=== PATIENT | male | born 1960 | race Caucasian/White ===

== ENCOUNTER 2020-02-12 13:28 | Outpatient (REF) | payer OTHER, SELFPAY | END 2020-02-12 13:29 | disposition home or self-care (01) | LOC: HO.LAB 13:28 | PROVIDERS: PCP Family Medicine; Visit Provider Internal Medicine | DX: Z20.828 Contact with and (suspected) exposure to other viral communicable diseases (principal) | CPT/HCPCS: C9803; U0003 ==

== ENCOUNTER 2020-03-06 11:01 | Emergency (ER) | payer OTHER, SELFPAY ==
[2020-03-06 11:33] VITALS: BP 141/88; PULSE 83; RESP 26; TEMP 36.9; O2SAT 96; BMI 32.3
--- NOTE | 2020-03-06 13:35 | XR_ITS ---
EXAMINATION: XR CHEST CLINICAL INFORMATION: SOB and wheezing COMPARISON: CT chest 01/30/2019 TECHNIQUE: Frontal view of the chest was obtained. FINDINGS: No significant abnormality is noted involving the heart, lungs, mediastinum, bony thorax or soft tissues. XR/XR chest 1V IMPRESSION: Unremarkable chest examination.
--- NOTE | 2020-03-06 13:39 | ED.ASTHMA ---
HPI - Asthma General Chief Complaint: Asthma Stated Complaint: asthma, med refill Time Seen by Provider: 03/06/20 13:35 Source: patient Mode of arrival: ambulatory Limitations: no limitations History of Present Illness HPI Narrative: 60 y/o male with history of asthma, KRISTY on CPAP, pulmonary nodules, HTN, schizophrenia, hx HCAP, hx hepatitis C s/p Roopa who presents with wheezing and SOB x1 week. He ran out of his nebulizer treatments and has been unable to get ahold of his PCP. He reports a dry cough and wheezing at rest. No fever, chills, sputum production, N/V/D, or sick contacts. No chest pain or diaphoresis. Symptoms are worse with coughing and walking. He has been using his rescue pump without relief. MD complaint: asthma attack and wheezing Onset (ago): week(s) (1) Severity: moderate Context: ran out of meds Associated symptoms: dry cough Asthma History: history of prior ED visit Related Data Current Asthma Therapy: inhaled bronchodilator Previous Rx's Medication Instructions Recorded albuterol sulfate 2.5 mg INHALATION Q4H PRN #75 ml 03/06/20 azithromycin [Zithromax Z-Dominic] See Rx Instructions .ROUTE 03/06/20 .COMPLEX #6 tab prednisone 10 mg PO PER PKG DIR #48 ea 03/06/20 Allergies Allergy/AdvReac Type Severity Reaction Status Date / Time haloperidol [From HALDOL] Allergy Severe SWELLING Unverified 11/07/19 15:35 TONGUE aspirin [ASPIRIN] Allergy Intermediate GI UPSET Unverified 11/07/19 15:35 benztropine [From COGENTIN] Allergy Unknown UNKNOWN Unverified 11/07/19 15:35 simvastatin [SIMVASTATIN] Allergy Unknown UNKNOWN Unverified 11/07/19 15:35 Review of Systems Review of Systems: Constitutional: No Fever, No Chills ENT/Mouth: No sore throat, No Rhinorrhea, No Swallowing Difficulty Cardiovascular: No Chest Pain, + SOB, No Orthopnea, No Edema Respiratory: + Cough, No Sputum, + Wheezing, + dyspnea Gastrointestinal: No Nausea, No Vomiting, No Diarrhea, No abdominal Pain Genitourinary: No Dysuria, No Urinary Frequency, No Hematuria Musculoskeletal: No joint pain, No Myalgias Skin: No Skin Lesions, No rash Neuro: No Weakness, No Numbness, No Dizziness, No Headache Psych: No Anxiety/Panic, No Depression Heme/Lymph: No Bruising, No Lymphadenopathy PMFSH Past Medical History Attestation statement: The following information was validated with the patient. Medical History (Updated 03/06/20 @ 13:55 by FANI Ford) Asthma Hepatitis C Hypertension KRISTY (obstructive sleep apnea) Pulmonary nodules Schizophrenia Social History Social History Advance Directives: No Advance Directives Information Provided: Yes Physical Exam Vital Signs: Vital Signs: Last Vital Signs Temp 98.4 F 03/06/20 11:33 Pulse 83 03/06/20 14:02 Resp 26 H 03/06/20 11:33 BP 141/88 H 03/06/20 11:33 Pulse Ox 96 03/06/20 11:33 Body Mass Index 32.3 Appearance: Alert. Oriented X3. No acute distress. Eyes: Pupils equal, round and reactive to light. ENT: Pharynx normal. Neck: Normal inspection. Neck supple. CVS: Normal heart rate and rhythm. Pulses normal. Respiratory: Mild respiratory distress with RR 22, inspiratory and expiratory wheezes throughout with LLL rhonchi. Abdomen: Soft and nontender. +BS x4 Skin: Skin warm and dry. Normal skin color. Normal skin turgor. No rashes. Extremities: No lower extremity edema. Negative Nirali's sign Neuro: Oriented X 3. No motor deficit. No sensory deficit. Course Course Course Narrative: 60 y/o male presenting with asthma exacerbation in the setting of running out of nebulizer treatments at home. RR initially 26. He was in the waiting room 2+ hours and he reports he feels slightly improved after resting and RR improved to 22 when seen. Diffusely wheezy but not in any concerning respiratory distress, speaking in full sentences. - will give hour long nebulizer treatment & dose of oral prednisone now - CXR ordered to assess for pneumonia Reevaluation(s) Reevaluation #1: 14:45 - significant improvement in aeration and wheezing s/p nebulizer treatment. CXR negative. Patient is stable for discharge with treatment for acute asthma exacerbation. He has been counseled and will f/u with his doctor. Discharge Plan Discharge Clinical Impression: Asthma with acute exacerbation Qualifiers: Asthma severity: moderate Asthma persistence: persistent Qualified Code(s): J45.41 - Moderate persistent asthma with (acute) exacerbation Patient Disposition: Home, Self-Care Instructions: Asthma (ED), Wheezing (ED) Additional Instructions: Your chest x-ray was normal. Start taking your prednisone taper tomorrow - you were given your 1st dose while you were in the ER. Use your nebulizer treatments as needed. Follow up with your doctor PILO for further management of your asthma. Prescriptions: New albuterol sulfate 2.5 mg /3 mL (0.083 %) solution for nebulization 2.5 mg inhalation Q4H PRN (Reason: shortness of breath or wheezing) Qty: 75 RF: 0 prednisone 10 mg tablets,dose pack 10 mg PO PER PKG DIR Qty: 48 RF: 0 azithromycin [Zithromax Z-Dominic] 250 mg tablet See Rx Instructions .ROUTE .COMPLEX Qty: 6 RF: 0
[2020-03-06] MEDS: Albuterol Sulfate (0.083%) 2.5 MG/3 ML VIAL.NEB 10 MG INHALE (13:56)
[2020-03-06 14:02] VITALS: PULSE 83; O2SAT 98
[2020-03-06] MEDS: predniSONE 10 MG TABLET 50 MG PO (14:35)
== END 2020-03-06 14:50 | disposition home or self-care (01) ==
PROVIDERS: Emergency Provider Emergency Medicine; PCP Family Medicine
DX: J45.41 Moderate persistent asthma with (acute) exacerbation (principal); I10 Essential (primary) hypertension; R91.1 Solitary pulmonary nodule; Z79.899 Other long term (current) drug therapy
CPT/HCPCS: 71045; 94640; 99283; 99284

== ENCOUNTER 2020-03-13 09:44 | Outpatient (REF) | payer OTHER, SELFPAY | END 2020-03-13 09:45 | disposition home or self-care (01) | LOC: HO.LAB 09:44 | PROVIDERS: Visit Provider Internal Medicine | DX: Z20.822 Contact with and (suspected) exposure to COVID-19 (principal) | CPT/HCPCS: 36415; C9803; U0003 ==

== ENCOUNTER 2020-09-21 19:28 | Emergency (ER) | payer OTHER, SELFPAY ==
[2020-09-21 20:39] VITALS: BP 96/76; PULSE 72; RESP 18; TEMP 36.7; O2SAT 98; BMI 37.9
[2020-09-21 20:59] LABS: COVID-19 Test Negative (Negative)
== END 2020-09-22 00:26 | disposition left against medical advice (07) ==
PROVIDERS: Emergency Provider Emergency Medicine; PCP Family Medicine
DX: M79.10 Myalgia, unspecified site (principal)
CPT/HCPCS: 36415; 87635; 99281; 99282

== ENCOUNTER 2020-09-23 10:03 | Outpatient (REF) | payer OTHER, SELFPAY ==
--- NOTE | ~2020-09-23 | XR_ITS ---
EXAMINATION: XR CERVICAL SPINE CLINICAL INFORMATION: Neck pain COMPARISON: None TECHNIQUE: 5 views of the cervical spine were obtained. FINDINGS: There is mild curvature of the mid cervical spine to the right. Bone alignment is otherwise normal. No fracture or dislocation is seen. There is degenerative spondylosis and disc space narrowing at C5-C6. There is right-sided neuroforaminal narrowing from bony osteophyte at C3-C4 and C4-C5 and C5-C6. Left-sided neural foramen are patent. Prevertebral soft tissues are normal. XR/XR cervical spine 4V IMPRESSION: Degenerative change at C5-C6 and mild right-sided neuroforaminal narrowing from C3-C4 to C5-C6 from bony osteophyte.
--- NOTE | ~2020-09-23 | XR_ITS ---
EXAMINATION: XR KNEE, LEFT CLINICAL INFORMATION: Pain COMPARISON: None TECHNIQUE: Four views of the left knee. FINDINGS: Bone alignment is normal. No fracture or dislocation is seen. The femoral tibial joints are normal. There is arthritis at the patellofemoral joint. There is no joint effusion. XR/XR knee LT 4V IMPRESSION: Arthritis at the patellofemoral joint.
== END 2020-09-23 10:04 | disposition home or self-care (01) ==
LOC: HO.XRAY 10:03
PROVIDERS: PCP Family Medicine; Visit Provider Emergency Medicine
DX: M25.562 Pain in left knee (principal); M54.2 Cervicalgia
CPT/HCPCS: 72050; 73564

== ENCOUNTER 2020-11-05 14:05 | Outpatient (REF) | payer OTHER, SELFPAY ==
--- NOTE | ~2020-11-05 | XR_ITS ---
EXAMINATION: XR LUMBOSACRAL SPINE CLINICAL INFORMATION: Pain. COMPARISON: Lumbar spine radiographs dated 08/24/2016. TECHNIQUE: 3 views of the lumbosacral spine. FINDINGS: Normal vertebral body alignment. The lumbar lordosis is maintained. No acute fracture or subluxation. No loss of vertebral body height. Minimal multilevel loss of intervertebral disc height with tiny anterior endplate osteophytes, slightly progressed. Bilateral facet arthropathy at L5-S1. No lytic or blastic osseous lesion. Phleboliths within the pelvis. XR/XR lumbar spine 2-3V IMPRESSION: Mild multilevel degenerative disc disease with bilateral facet arthropathy at L5-S1, slightly progressed.
== END 2020-11-05 14:06 | disposition home or self-care (01) ==
LOC: HO.XRAY 14:05
PROVIDERS: PCP Family Medicine; Visit Provider Family Medicine
DX: M54.2 Cervicalgia (principal)
CPT/HCPCS: 72100

== ENCOUNTER → 2020-12-01 09:31 | Outpatient (BNVA) | payer OTHER, SELFPAY | PROVIDERS: PCP Family Medicine; Visit Provider Nurse Practitioner Family | DX: M47.816 Spondylosis without myelopathy or radiculopathy, lumbar region (principal); M54.2 Cervicalgia; M79.18 Myalgia, other site; M53.3 Sacrococcygeal disorders, not elsewhere classified | CPT/HCPCS: 99202 ==

== ENCOUNTER 2021-05-20 09:08 | Outpatient (REF) | payer OTHER, SELFPAY ==
--- NOTE | ~2021-05-20 | XR_ITS ---
EXAMINATION: XR HAND SERIES, BILATERAL CLINICAL INFORMATION: Bilateral hand pain COMPARISON: None TECHNIQUE: 3 views of each hand. FINDINGS: RIGHT HAND: Wrist: Normal. Metacarpophalangeal joints: First metacarpophalangeal joint: There is nonuniform joint space narrowing with marginal osteophytes and subchondral cysts indicative of [id number] osteoarthritis. Mild osteoarthritis of the 2nd and 3rd metacarpophalangeal joints manifested by marginal osteophytes without joint space narrowing. Interphalangeal joints: Normal. Surrounding soft tissues: Normal. LEFT HAND: Wrist: Normal. Metacarpophalangeal joints: Mild osteoarthritis of the 1st, 2nd and 3rd metacarpophalangeal joints manifested by marginal osteophytes and subchondral cystic change without joint space narrowing. Small ossification in the 1st MTP joint may reflect a loose body or dystrophic calcification of the capsule. Interphalangeal joints: There is mild osteoarthritis of the IP joint of the thumb manifested by marginal osteophytes with minimal subchondral cystic change. Surrounding soft tissues: Normal XR/XR hand LT min 3V IMPRESSION: RIGHT HAND: Osteoarthritis. LEFT HAND: Osteoarthritis.
--- NOTE | ~2021-05-20 | XR_ITS ---
EXAMINATION: XR HAND SERIES, BILATERAL CLINICAL INFORMATION: Bilateral hand pain COMPARISON: None TECHNIQUE: 3 views of each hand. FINDINGS: RIGHT HAND: Wrist: Normal. Metacarpophalangeal joints: First metacarpophalangeal joint: There is nonuniform joint space narrowing with marginal osteophytes and subchondral cysts indicative of [id number] osteoarthritis. Mild osteoarthritis of the 2nd and 3rd metacarpophalangeal joints manifested by marginal osteophytes without joint space narrowing. Interphalangeal joints: Normal. Surrounding soft tissues: Normal. LEFT HAND: Wrist: Normal. Metacarpophalangeal joints: Mild osteoarthritis of the 1st, 2nd and 3rd metacarpophalangeal joints manifested by marginal osteophytes and subchondral cystic change without joint space narrowing. Small ossification in the 1st MTP joint may reflect a loose body or dystrophic calcification of the capsule. Interphalangeal joints: There is mild osteoarthritis of the IP joint of the thumb manifested by marginal osteophytes with minimal subchondral cystic change. Surrounding soft tissues: Normal XR/XR hand RT min 3V IMPRESSION: RIGHT HAND: Osteoarthritis. LEFT HAND: Osteoarthritis.
== END 2021-05-20 09:09 | disposition home or self-care (01) ==
LOC: HO.LAB 09:08
PROVIDERS: PCP Family Medicine; Visit Provider Family Medicine
DX: M79.641 Pain in right hand (principal); M79.642 Pain in left hand; R35.0 Frequency of micturition
CPT/HCPCS: 73130

== ENCOUNTER 2021-06-16 15:08 | Outpatient (RCR) | payer OTHER, SELFPAY | END 2021-06-23 15:00 | disposition home or self-care (01) | LOC: HO.PT 15:08 | PROVIDERS: PCP Family Medicine; Visit Provider Family Medicine | DX: M54.2 Cervicalgia (principal) | CPT/HCPCS: 97110; 97162 ==

== ENCOUNTER 2021-11-10 13:32 | Outpatient (REF) | payer OTHER, SELFPAY ==
--- NOTE | ~2021-11-10 | XR_ITS ---
EXAMINATION: XR CHEST CLINICAL INFORMATION: Cough for 7 months. COMPARISON: March 06, 2020. TECHNIQUE: 2 views of the chest were obtained. FINDINGS: No significant abnormality is noted involving the heart, lungs, mediastinum, bony thorax or soft tissues. XR/XR chest 2V IMPRESSION: Unremarkable examination.
== END 2021-11-10 13:33 | disposition home or self-care (01) ==
LOC: HO.XRAY 13:32
PROVIDERS: PCP Family Medicine; Visit Provider Family Medicine
DX: R05.9 Cough, unspecified (principal)
CPT/HCPCS: 71046

== ENCOUNTER → 2022-04-28 13:28 | Outpatient (BNVA) | payer OTHER, SELFPAY | PROVIDERS: PCP Family Medicine; Referring Provider Family Medicine; Visit Provider Physician Assistant | DX: Z12.11 Encounter for screening for malignant neoplasm of colon (principal); Z79.52 Long term (current) use of systemic steroids | CPT/HCPCS: 99202 ==

== ENCOUNTER 2022-05-16 08:48 | Outpatient (REF) | payer OTHER, SELFPAY ==
--- NOTE | ~2022-05-16 | XR_ITS ---
EXAMINATION: XR FOOT, RIGHT CLINICAL INFORMATION: Pain. COMPARISON: None available. TECHNIQUE: AP, lateral, and oblique views of the right foot. FINDINGS: There is a loss of talonavicular joint space with dorsal spurring. No visible acute fracture or dislocation seen. A small retrocalcaneal enthesophyte is seen. The soft tissues are normal. XR/XR foot RT min 3V IMPRESSION: Small retrocalcaneal and dorsal talonavicular spurring. No visible acute fracture, dislocation or lytic process seen.
== END 2022-05-16 08:49 | disposition home or self-care (01) ==
LOC: HO.XRAY 08:48
PROVIDERS: PCP Family Medicine; Visit Provider Family Medicine
DX: M79.671 Pain in right foot (principal)
CPT/HCPCS: 73630

== ENCOUNTER 2022-06-16 15:30 | Outpatient (REF) | payer OTHER, SELFPAY ==
--- NOTE | ~2022-06-16 | US_ITS ---
EXAMINATION: US VENOUS ULTRASOUND WITH DOPPLER LOWER EXTREMITY, RIGHT CLINICAL INFORMATION: Acute pain COMPARISON: Bilateral venous Doppler ultrasound exam 05/17/2016 TECHNIQUE: Ultrasound of the deep veins is performed from the hip to the calf with compression sonography and color and pulse Doppler assessment. Spectral analysis with color-flow imaging is performed. FINDINGS: There is normal venous compression and respiratory variation and augmented flow. The visualized common femoral vein, superficial femoral vein, profunda femoral vein, popliteal vein, and the trifurcation region shows no evidence of deep venous thrombosis. No evidence of popliteal cysts. Morphologically normal-appearing lymph node with fatty hilum and short axis diameter 0.6 cm in the right proximal thigh. If the patient's symptoms persist, followup ultrasound in 5 days 7 days might be of value to exclude proximal propagation from a non-visualized calf vein. US/US venous duplex LE RT IMPRESSION: No DVT demonstrated in the right lower extremity.
== END 2022-06-16 15:31 | disposition home or self-care (01) ==
LOC: HO.US 15:30
PROVIDERS: Visit Provider Emergency Medicine
DX: M79.604 Pain in right leg (principal)
CPT/HCPCS: 93971

== ENCOUNTER 2022-08-08 13:07 | Outpatient (REF) | payer OTHER, SELFPAY ==
--- NOTE | ~2022-08-08 | MR_ITS ---
EXAMINATION: MR LUMBAR SPINE WITHOUT CONTRAST CLINICAL INFORMATION: Chronic right-sided low back pain with sciatica. COMPARISON: X-ray lumbar spine dated 11/05/2020. TECHNIQUE: Multiplanar, multisequence imaging was obtained. FINDINGS: VERTEBRAL BODIES AND PARASPINAL STRUCTURES: The marrow signal is within normal limits. No subluxation is seen. There are no compression fractures. Disc heights are maintained. No marrow or soft tissue edema identified the paraspinal soft tissues appear normal. The imaged bony pelvis is unremarkable. On the nondiagnostic localizer acquisition, there is perceived bladder wall thickening, otherwise incompletely assessed. CONUS MEDULLARIS AND CAUDA EQUINE: The distal cord, conus tip, and cauda equina nerve roots are normal. Epidural lipomatosis in the lumbar spinal canal results in varying degrees of thecal sac distortion. SPINAL LEVELS: L1-L2: Mild anterior endplate spurring. No focal disc protrusion, central canal stenosis, or foraminal narrowing. L2-L3: Very mild disc bulge and mild facet arthropathy with mild dorsal epidural fat prominence resulting in [id number] thecal sac distortion. No central canal stenosis. Very mild foraminal narrowing due to bulging disc on the right side. L3-L4: No facet arthrosis. Patent central canal with epidural lipomatosis resulting in moderate thecal sac distortion. Mild right foraminal narrowing with a shallow right foraminal disc protrusion contacting but not distorting the exiting right L3 nerve root. L4-L5: Very mild disc bulge with facet arthropathy. No central canal stenosis. Significant epidural lipomatosis resulting in severe thecal sac compression and effacement of CSF in the thecal sac. Right posterolateral annular fissure and disc bulge and osseous spurring resulting in moderate right foraminal encroachment. Moderate left foraminal narrowing as well. L5-S1: Very mild disc bulge and thecal sac distortion as a result of epidural lipomatosis. Small left subarticular zone annular fissure. No central canal stenosis. Mild facet arthropathy contacting the exiting left L5 nerve root with moderate left foraminal encroachment. Mild right foraminal narrowing. MR/MR lumbar spine wo con IMPRESSION: 1. Epidural lipomatosis in the lumbar spinal canal resulting in moderate thecal sac distortion at the L3-L4 level and severe thecal sac compression at the L4-L5 level. No central canal stenosis. 2. Shallow right foraminal disc protrusion at the L3-L4 level contacting the right L3 nerve root. 3. Moderate bilateral foraminal narrowing at the L4-L5 level due to bulging disc and osseous spurring. Focal right posterolateral annular tear/tear. 4. Facet arthropathy at the L5-S1 level contacting the exiting left L5 nerve root with moderate left foraminal encroachment. 5. Partially imaged superior bladder wall thickening of indeterminate etiology; query for any history of prostatic enlargement, not included in the field of view of imaging.
== END 2022-08-08 13:08 | disposition home or self-care (01) ==
LOC: HO.MRI 13:07
PROVIDERS: PCP Family Medicine; Visit Provider Emergency Medicine
DX: M54.41 Lumbago with sciatica, right side (principal)
CPT/HCPCS: 72148

== ENCOUNTER 2022-11-02 08:24 | Day surgery (SDC) | payer OTHER, SELFPAY ==
--- NOTE | 2022-11-01 10:29 | P.CONAN_ITS ---
Documented by User: Devorah Lyman NP 11/01/22 10:30 HPI - Anesthesia Eval Consult details Narrative: 62yo M for Colonoscopy PMFSH Active Problems Active Problems: All Active Problems (Updated 04/28/22 @ 13:53 by Pina Mahajan PA-C) Encounter for screening colonoscopy (Acute) Sacroiliac joint pain (Acute) Myofascial pain (Acute) Cervicalgia (Acute) Spondylosis of lumbar spine (Acute) Pulmonary nodules (Acute) KRISTY (obstructive sleep apnea) (Acute) Hypertension (Acute) Schizophrenia (Acute) Past Medical History Medical History Hepatitis C Pulmonary nodules KRISTY (obstructive sleep apnea) Hypertension Schizophrenia Asthma Surgical History Surgical History Hx of colonoscopy Social History Social History Patient Tobacco Use Status: Former Tobacco user Are you DNR?: No Advance Directives: No Advance Directives Information Provided: Yes Nutrition Risks: No Nutritional Risk Meds Allergies Allergy/AdvReac Type Severity Reaction Status Date / Time haloperidol [From HALDOL] Allergy Severe SWELLING Verified 11/02/22 10:05 TONGUE aspirin [ASPIRIN] Allergy Intermediate GI UPSET Verified 11/02/22 10:05 benztropine [From COGENTIN] Allergy Unknown UNKNOWN Verified 11/02/22 10:05 simvastatin [SIMVASTATIN] Allergy Unknown UNKNOWN Verified 11/02/22 10:05 Home Medications Medication Instructions Recorded Confirmed Last Taken Type acetaminophen 500 mg tablet 500 mg PO Q6H PRN 12/01/20 04/28/22 Unknown History (Tylenol Extra Strength) metoprolol tartrate 50 mg tablet 50 mg PO BID 12/01/20 04/28/22 Unknown History Exam Exam Date and Time: November 01, 2022 102 Assessment and Plan Assessment Anesthesia Assessment: Chart Reviewed Documented by User: Marichuy Flores MD 11/02/22 10:42 [facility] Active Problems Active Problems: All Active Problems (Updated 11/02/22 @ 10:12 by Mraichuy Flores MD) Encounter for screening colonoscopy (Acute) Sacroiliac joint pain (Acute) Myofascial pain (Acute) Cervicalgia (Acute) Spondylosis of lumbar spine (Acute) Pulmonary nodules (Acute) KRISTY (obstructive sleep apnea) (Acute). Not using COAP machine Hypertension (Acute) Schizophrenia (Acute) Hep C Asthma Past Medical History Medical History Hepatitis C Pulmonary nodules KRISTY (obstructive sleep apnea) Hypertension Schizophrenia Asthma Family History Family history of problems with anesthesia: No Surgical History Surgical History Hx of colonoscopy History of Problems with Anesthesia: No Social History Social History Patient Tobacco Use Status: Former Tobacco user Are you DNR?: No Advance Directives: No Advance Directives Information Provided: Yes Nutrition Risks: No Nutritional Risk Meds Allergies Allergy/AdvReac Type Severity Reaction Status Date / Time haloperidol [From HALDOL] Allergy Severe SWELLING Verified 11/02/22 10:05 TONGUE aspirin [ASPIRIN] Allergy Intermediate GI UPSET Verified 11/02/22 10:05 benztropine [From COGENTIN] Allergy Unknown UNKNOWN Verified 11/02/22 10:05 simvastatin [SIMVASTATIN] Allergy Unknown UNKNOWN Verified 11/02/22 10:05 Home Medications Medication Instructions Recorded Confirmed Last Taken Type acetaminophen 500 mg tablet 500 mg PO Q6H PRN 12/01/20 04/28/22 Unknown History (Tylenol Extra Strength) metoprolol tartrate 50 mg tablet 50 mg PO BID 12/01/20 04/28/22 Unknown History Exam Height,Weight and Vital Signs: Height 5 ft 6 in Weight 119.295 kg Vital Signs Temp Pulse Resp BP Pulse Ox O2 Del Method 11/02/22 09:56 97.9 F 60 18 140/86 H 99 Room Air Pertinent Lab Results Pertinent Lab Results: Lab Results 11/02/22 Range/Units 09:54 POC Glucose 96 (60-115) mg/dL Airway Mallampati Class: II TM Dist: >3cm Neck ROM: Limited (pain) Denture: Upper Partial: Lower Loose/Missing/Broken Teeth: Yes (Denies broken or loose teeth ) Heart: RRR Lungs: CTAB Assessment and Plan Assessment Anesthesia Assessment: Anesthesia Plan Discussed Final Anesthetic Review Family History of Problems with Anesthesia: No History of Problems with Anesthesia: No NPO: Yes ASA Class: III Final Preanesthetic Review: No Changes in Pt Med Stat, Meds/Allgs Chart Reviewed, Consent Obtained/Reviewed and Anes Risks/Benef Reviewed Patient Risk: Intermediate Procedure Risk: Low Assessment/Block/Sedation in SS: Assess/Block/Sedation-SS Anesthetic Plan Anesthetic Plan: MAC: Disposition: Standard PACU
[2022-11-02 09:46] VITALS: BMI 42.4
--- NOTE | 2022-11-02 09:53 | P.HPSUR_ITS ---
Pre-Procedural Eval Section A Date of Service: 11/02/22 Section B Chief Complaint: screening Relevant Family History (Specify if Yes): No Relevant Social History: None Present Medications: see Short Stay Collaborative assessment Medical History: Significant History (Asthma Hepatitis C Hypertension KRISTY (obstructive sleep apnea) Pulmonary nodules Schizophrenia) History of Previous Operations: No relevant previous surgery Allergies: Allergies Allergy/AdvReac Type Severity Reaction Status Date / Time haloperidol [From HALDOL] Allergy Severe SWELLING Verified 04/28/22 13:31 TONGUE aspirin [ASPIRIN] Allergy Intermediate GI UPSET Verified 04/28/22 13:31 benztropine [From COGENTIN] Allergy Unknown UNKNOWN Verified 04/28/22 13:31 simvastatin [SIMVASTATIN] Allergy Unknown UNKNOWN Verified 04/28/22 13:31 Review of Systems Sugical H&P ROS: Negative: Constitution, Cardiovascular, Respiratory, Neurological, Psychiatric, Hem-Onc, Allergic/Immunologic, Gastrointestinal, Genitourinary, Musculoskeletal, Integumentary, Endocrine and Eyes/Ears/Nose/Thro at Exam Surgical H&P Exam: Normal: HEENT, Normal: Heart, Normal: Lungs, Normal: Extremities, Normal: Abdomen, Normal: Skin and Normal: Neurological Plan Diagnosis/Plan: Unchanged I have reviewed the history and physical and performed a pertinent physical examination on my patient. No changes have occurred unless specified. Time Spent With Patient Time: Total time managing care of this patient today ____ minutes.
[2022-11-02 09:56] VITALS: BP 140/86; PULSE 60; RESP 18; TEMP 36.6; O2SAT 99
[2022-11-02] MEDS: Lactated Ringers 1,000 ML 100 ML IVCONT (09:57)
[2022-11-02 10:01] LABS: Glucose, Whole Blood 96 mg/dL (60-115)
--- NOTE | 2022-11-02 10:22 | W.PM.OPN ---
Operative Note Operative Note Date of Service: 11/02/22 Narrative: Operative Information Procedure Description: Colonoscopy Indication: screening Anesthesia: MAC COLONOSCOPY Instrument: Olympus variable stiffness ADULT scope 190L Colonoscopy Monitoring: Vital signs and clinical assessment, continuous EKG monitoring, Pulse oximetry, Carbon Dioxide monitoring and blood pressure monitoring were done throughout the procedure. Colon withdrawal time was 12 minutes. Procedure: The patient was placed in the left lateral decubitis position and pre-procedure medications were administered. After a digital rectal examination of the ano-rectum, the video colonoscope was inserted into the rectum and advanced through the colon to the cecum/TI. The colonoscope was slowly withdrawn in a retrograde panoramic fashion and the colon mucosa was carefully examined including a retroflexed view of the rectum. Findings and interventions are described below. Procedure Difficulty: moderate Findings: Terminal Ileum-normal Cecum: 6-7 mm sessile polyp removed with cold snare, not retrieved Ascending Colon: normal Transverse Colon - 6-8 mm sessile polyp removed with cold snare, not retreived Descending Colon: 6-8 mm sessile polyp removed with cold snare Sigmoid Colon: 6-8 mm sessile polyp removed with cold snare Rectum: Retroflexion with medium sized internal hemorrhoids, grade I Anorectum - normal Colon preparation: [place] Bowel Preparation Scale Right colon; 1-2 Transverse colon: 2 Left colon; 1-2 (0 = Unprepared colon segment with mucosa not seen due to solid stool that cannot be cleared. 1 = Portion of mucosa of the colon segment seen, but other areas of the colon segment not well seen due to staining, residual stool and/or opaque liquid. 2 = Minor amount of residual staining, small fragments of stool and/or opaque liquid, but mucosa of colon segment seen well. 3 = Entire mucosa of colon segment seen well with no residual staining, small fragments of stool or opaque liquid) Impression and Post Procedure Diagnosis: polyps internal hemorrhoids Plan: High fiber diet leaflet Avoid straining at stool, epsom salts and sitz bath, anusol supps or cream Repeat Colonoscopy in 3-4 years due to polyps and fair prep or earlier if clinically indicated Above findings were reviewed with the patient and relevant handouts were provided if indicated.
[2022-11-02 10:58] VITALS: BP 131/92; PULSE 67; RESP 14; TEMP 36.4; O2SAT 96
[2022-11-02 11:13] VITALS: BP 146/91; PULSE 60; RESP 18; O2SAT 96
[2022-11-02 11:27] VITALS: BP 144/91; PULSE 61; RESP 18; TEMP 36.2; O2SAT 98
== END 2022-11-02 12:10 | disposition home or self-care (01) ==
PROVIDERS: PCP Family Medicine; Visit Provider Internal Medicine Gastroenterology
PROC: 0DJD8ZZ Inspection of Lower Intestinal Tract, Via Natural or Artificial Opening Endoscopic (ICD-10-PCS; CPT 45378; principal; 2022-11-02 11:10)
DX: Z12.11 Encounter for screening for malignant neoplasm of colon (principal); D12.4 Benign neoplasm of descending colon; K63.5 Polyp of colon; K64.0 First degree hemorrhoids; J45.909 Unspecified asthma, uncomplicated; I10 Essential (primary) hypertension; B19.20 Unspecified viral hepatitis C without hepatic coma; G47.33 Obstructive sleep apnea (adult) (pediatric); R91.8 Other nonspecific abnormal finding of lung field; F20.9 Schizophrenia, unspecified; Z79.899 Other long term (current) drug therapy; Z88.8 Allergy status to other drugs, medicaments and biological substances; Z87.891 Personal history of nicotine dependence
CPT/HCPCS: 45385; 82947; 88305

== ENCOUNTER → 2022-11-02 08:24 | Outpatient (BNV) | payer OTHER, SELFPAY | PROVIDERS: PCP Family Medicine; Visit Provider Internal Medicine Gastroenterology | DX: Z12.11 Encounter for screening for malignant neoplasm of colon (principal); D12.0 Benign neoplasm of cecum; D12.3 Benign neoplasm of transverse colon; D12.4 Benign neoplasm of descending colon; D12.5 Benign neoplasm of sigmoid colon; K64.0 First degree hemorrhoids | CPT/HCPCS: 45385 ==

== ENCOUNTER 2023-04-09 09:17 | Emergency (ER) | payer OTHER, SELFPAY ==
[2023-04-09 09:23] VITALS: BP 132/83; PULSE 84; RESP 19; TEMP 35.6; O2SAT 94; BMI 42.4
[2023-04-09] MEDS: Fluorescein Sodium STRIP 1 STRIP EYE-RIGHT (09:47)
[2023-04-09] MEDS: Tetracaine HCl/PF 0.5% Oph Sol 4 ML DROPS 1 DROP EYE-RIGHT (09:47)
--- NOTE | 2023-04-09 09:50 | ED.EYEPROB ---
HPI - Eye Problem General Chief complaint: Eye Problems Stated complaint: Eye irritation Time Seen by Provider: 04/09/23 09:24 Source: patient and family Mode of arrival: ambulatory Limitations: no limitations History of Present Illness HPI Narrative: 63 yo male with past medical history of diabetes, schizophrenia presents the ER with complaints of right eye irritation, drainage and crusting since yesterday. No pain in the eye. No vision changes. No floaters or flashing lights. No fevers, chills, photophobia. Patient is supposed to use corrective lenses but he does not have them with him. He is followed by Dr. Torres ophthalmology. NO recent illnesses Related Data Home Medications Medication Instructions Recorded Confirmed acetaminophen 500 mg tablet 500 mg PO Q6H PRN 12/01/20 04/28/22 (Tylenol Extra Strength) metoprolol tartrate 50 mg tablet 50 mg PO BID 12/01/20 04/28/22 Previous Rx's Medication Instructions Recorded albuterol sulfate 2.5 mg/3 mL 2.5 mg (3 mL) inhalation Q4H PRN 03/06/20 (0.083 %) solution for nebulization shortness of breath or wheezing #75 mL prednisone 10 mg tablets in a dose 10 mg PO PER PKG DIR #48 ea 03/06/20 pack bisacodyl 5 mg tablet,delayed 10 mg (2 x 5 mg) PO ONCE 04/28/22 release (Dulcolax (bisacodyl)) colonoscopy prep 1 day #2 tabs polyethylene glycol 3350 17 238 g PO ONCE 1 day #238 grams 04/28/22 gram/dose oral powder (Miralax) amoxicillin 875 mg-potassium 1 tab PO BID #14 tabs 04/09/23 clavulanate 125 mg tablet erythromycin 5 mg/gram (0.5 %) eye 0.5 inch ophthalmic (eye) BID 7 04/09/23 ointment days #3.5 grams Allergies Allergy/AdvReac Type Severity Reaction Status Date / Time haloperidol [From HALDOL] Allergy Severe SWELLING Verified 11/02/22 10:05 TONGUE aspirin [ASPIRIN] Allergy Intermediate GI UPSET Verified 11/02/22 10:05 benztropine [From COGENTIN] Allergy Unknown UNKNOWN Verified 11/02/22 10:05 simvastatin [SIMVASTATIN] Allergy Unknown UNKNOWN Verified 11/02/22 10:05 Review of Systems Review of Systems: Yes all other systems are reviewed and are negative Constitutional: Constitutional: Reports no additional constitutional complaints, Denies body ache(s), Denies chills, Denies fever(s), Denies headache(s) and Denies weakness Eyes: Eyes: Reports no additional eye complaints, Denies change in vision, Reports eye discharge, Reports irritation, Denies eye pain, Reports requires corrective lenses, Denies seeing flashes and Denies photophobia ENT: Reports system reviewed and no additional complaints, except as documented, Denies dizziness, Denies headache(s), Denies nasal congestion, Denies nasal discharge and Denies neck pain Cardiovascular: Cardiovascular: Reports no additional cardiovascular complaints, Denies chest pain, Denies leg edema and Denies dyspnea Respiratory: Respiratory: Reports no additional respiratory complaints, Denies cough and Denies dyspnea Gastrointestinal: Gastrointestinal: Reports no additional gastrointestinal complaints, Denies abdominal pain, Denies diarrhea, Denies nausea and Denies vomiting Genitourinary: Genitourinary: Denies urinary incontinence Musculoskeletal: Musculoskeletal: Reports no additional musculoskeletal complaints, Denies back pain, Denies arthralgias, Denies joint swelling, Denies neck pain, Denies numbness and Denies tingling Integumentary/Breasts: Skin/Breast: Reports system reviewed and no additional complaints, except as docu and Denies rash Neurologic: Denies Abnormal speech present, Denies dizziness, Denies headache(s), Denies numbness, Denies tingling and Denies weakness PMFSH Past Medical History Attestation statement: The following information was validated with the patient. Source: old records reviewed and nursing notes reviewed Medical History Hepatitis C Pulmonary nodules KRISTY (obstructive sleep apnea) Hypertension Schizophrenia Asthma Surgical History Hx of colonoscopy Social History Social History Patient Tobacco Use Status: Former Tobacco user Smoked in Last 30 Days: No Use of substances other than those prescribed or required for medical reasons: No Advance Directives: No Advance Directives Information Provided: No Physical Exam Vital Signs: Vital Signs: Last Vital Signs Temp 96.0 F L 04/09/23 09:23 Pulse 84 04/09/23 09:23 Resp 19 04/09/23 09:23 BP 132/83 04/09/23 09:23 Pulse Ox 94 04/09/23 09:23 O2 Del Method Room Air 04/09/23 09:23 BMI result Body Mass Index 42.4 Const: General: cooperative, healthy appearing, comfortable and no acute distress Orientation/consciousness: patient oriented x3 Limitations: no limitations HEENT: Head: Yes normal to inspection Ears: hearing grossly normal bilaterally and TM's normal bilaterally General nose exam: Normal external nose present Face and sinus: Yes normal facial exam Mouth: Normal oral and palatal mucosa present Throat: Yes posterior oropharynx normal, Yes tonsils normal and Yes uvula midline Eyes: Other: IOP right eye 17 IOP left eye 18 See charted visual acuity General: appearance normal, both eyes and all related structures Visual [place]: normal visual [place] by confrontation Alignment and Position: alignment normal Periorbital: periorbital findings abnormal (R-upper eyelid and lateral erythema/swelling) Conjunctivae: conjunctival abnormal (r injection) Sclerae: sclerae normal Corneas: corneas normal (NO FB or abrasion ) and fluorescein used Pupils: Equal, round and reactive pupils present and Other pupil findings EOM: EOMs intact bilaterally Direct Ophthalmoscopy: normal light reflex, anterior chamber normal and No photophobia Neck: Neck: Yes normal visual inspection, Yes full ROM, Yes no lymphadenopathy and Yes no meningeal signs Chest: Chest palpation & inspection: normal inspection of the chest Resp: Effort & Inspection: normal respiratory effort Auscultation: clear to auscultation bilaterally Cardio: Rate: regular rate Rhythm: regular rhythm Peripheral pulses: Peripheral pulses 2+ throughout GI: Inspection: Yes normal to inspection Palpation (GI): Soft to palpation and nontender Auscultation: normal bowel sounds Back/Spine/Pelvis: Thoracic/Lumbar Spine: thoracic and lumbar spine normal to inspection Skin: General skin exam: no rashes or lesions noted Neuro: General: patient oriented x3, no meningeal signs, no focal motor deficits and normal sensation to monofilament Cranial nerves: Yes Equal, round and reactive pupils present Cognition (Neuro): normal cognition Speech: No Abnormal speech present Gait exam (Neuro): Normal gait present Motor exam (neuro): 5/5 motor strength present throughout Extrem: General: Yes normal to inspection Medications Administered Discontinued Medications Generic Name Dose Route Start Last Admin Trade Name Teresa PRN Reason Stop Dose Admin Fluorescein Sodium 1 strip 04/09/23 09:43 04/09/23 09:47 Fluorescein Sodium Strip EYE-RIGHT 04/09/23 09:44 1 strip ONCE ONE Administration Tetracaine HCl 1 drop 04/09/23 09:43 04/09/23 09:47 Tetracaine Hcl/Pf 0.5% Oph [place]ina 4 Ml Drops EYE-RIGHT 04/09/23 09:44 1 drop ONCE ONE Administration Medical Decision Making Medical Decision Making MDM Narrative: 63 yo male with past medical history of diabetes, schizophrenia presents the ER with complaints of right eye irritation, drainage and crusting since yesterday. No pain in the eye. No vision changes. No floaters or flashing lights. No fevers, chills, photophobia. Patient is supposed to use corrective lenses but he does not have them with him. He is followed by Dr. Torres ophthalmology. NO recent illnesses. IOPs equal bilaterally See charted visual acuity No corneal FB or abrasion seen on eye exam VSS Right preseptal cellulitis noted with no evidence of orbital cellulitis Will treat with topical erythromycin, oral antibiotics Differential Diagnosis Differential Diagnoses: The differential diagnosis associated with the presentation includes preseptal cellulitis low concern for orbital cellulitis with normal EOM, PERRLA, no vision change from baseline, no proptosis no concern for corneal abrasion, corneal foreign body, iritis Admission/Observation Consideration of admission/observation: Escalation of care including admission/observation considered low suspicion for orbital cellulitis requiring advanced imaging, urgent ophthalmology consultation Independent Historian Clinical information obtained from an independent historian. History obtained from or confirmed by: Spouse Tests considered The following testing was considered but not selected: low suspicion for orbital cellulitis requiring advanced imaging, Prescription Management I considered prescription management with: Antibiotic Discharge Plan Discharge Clinical Impression: Periorbital cellulitis Patient Disposition: Home, Self-Care Instructions: Periorbital Cellulitis in Adults (ED) Additional Instructions: Warm compresses Return for vision change, fever, pain with eye movement follow up with Dr Torres [facility] Prescriptions: New erythromycin 5 mg/gram (0.5 %) ointment 0.5 inch ophthalmic (eye) BID 7 Days Qty: 3.5 0RF amoxicillin-pot clavulanate 875-125 mg tablet 1 tab PO BID Qty: 14 0RF No Action albuterol sulfate 2.5 mg /3 mL (0.083 %) solution for nebulization 2.5 mg inhalation Q4H PRN (Reason: shortness of breath or wheezing) Qty: 75 0RF prednisone 10 mg tablets,dose pack 10 mg PO PER PKG DIR Qty: 48 0RF Rx Instructions: Take 4 tabs x4 days, then 3 tabs x4 days, then 2 tabs x4 days, then 1 tab x4 days. discard remainder acetaminophen [Tylenol Extra Strength] 500 mg tablet 500 mg PO Q6H PRN metoprolol tartrate 50 mg tablet 50 mg PO BID bisacodyl [Dulcolax (bisacodyl)] 5 mg tablet,delayed release (DR/EC) 10 mg PO ONCE 1 Days Qty: 2 0RF Rx Instructions: Take 2 tablets by mouth at 12:00pm the day before your procedure. polyethylene glycol 3350 [Miralax] 17 gram/dose powder 238 g PO ONCE 1 Days Qty: 238 0RF Rx Instructions: Take as directed by mouth the day before your procedure. Print Language: Polish
== END 2023-04-09 10:22 | disposition home or self-care (01) ==
PROVIDERS: Emergency Provider Emergency Medicine; PCP Family Medicine
DX: L03.213 Periorbital cellulitis (principal); E11.9 Type 2 diabetes mellitus without complications; I10 Essential (primary) hypertension; Z79.899 Other long term (current) drug therapy
CPT/HCPCS: 99283; 99284

== ENCOUNTER 2023-08-27 15:44 | Emergency (ER) | payer OTHER, SELFPAY ==
--- NOTE | ~2023-08-27 | XR_ITS ---
EXAMINATION: XR elbow LT min 3V, XR shoulder LT min 2V, XR wrist LT min 3V CLINICAL INFORMATION: Reason for Exam pain, injury COMPARISON: None. TECHNIQUE: AP, lateral, and oblique views of the elbow, 4 views of the wrist, 3 views of the shoulder FINDINGS: Remote healed distal ulnar fracture deformity. No acute fracture or dislocation. No elbow effusion. Mild osteoarthritis of the shoulder with small glenohumeral and acromioclavicular osteophytes. Elbow and wrist joint spaces are maintained. No soft tissue abnormality. XR/XR shoulder LT min 2V IMPRESSION: 1. No acute osseous abnormality. 2. Remote healed distal ulnar fracture deformity. 3. Mild osteoarthritis of the shoulder.
--- NOTE | ~2023-08-27 | CT_ITS ---
EXAMINATION: CT CHEST WITHOUT CONTRAST CLINICAL INFORMATION: Left-sided rib pain after a fall COMPARISON: Chest x-ray August 27, 2023 CT of chest January 30, 2019 TECHNIQUE: Multidetector volumetric CT imaging of the chest was done. Axial MIP volume rendering provided. Sagittal and coronal reformatted images were obtained. This CT examination was performed using dose optimization techniques as appropriate, variously including the following: *Automated exposure control *Adjustment of mA and/or kV according to patient size (this includes techniques or standardized protocols for targeted exams where dose is matched to indication/reason for exam; i.e. extremities or head) *Use of iterative reconstruction technique DLP: 337 mGy-cm FINDINGS: LUNGS: The lungs are clear with no evidence of inflammation or nodules. MEDIASTINUM: The mediastinum is normal. CORONARY ARTERY CALCIFICATION: None visualized on this study. PLEURA: There is no pleural effusion. No pleural mass or thickening. AXILLA: No lymphadenopathy. UPPER ABDOMEN: Unremarkable. OSSEOUS STRUCTURES: Nondisplaced fracture of the anterior left sixth rib. There are old healed rib fractures the left lateral sixth and seventh ribs. CT/CT chest wo IV con IMPRESSION: Nondisplaced fracture of the anterior left sixth rib. Fleischner guidelines were followed.
--- NOTE | ~2023-08-27 | XR_ITS ---
EXAMINATION: XR elbow LT min 3V, XR shoulder LT min 2V, XR wrist LT min 3V CLINICAL INFORMATION: Reason for Exam pain, injury COMPARISON: None. TECHNIQUE: AP, lateral, and oblique views of the elbow, 4 views of the wrist, 3 views of the shoulder FINDINGS: Remote healed distal ulnar fracture deformity. No acute fracture or dislocation. No elbow effusion. Mild osteoarthritis of the shoulder with small glenohumeral and acromioclavicular osteophytes. Elbow and wrist joint spaces are maintained. No soft tissue abnormality. XR/XR elbow LT min 3V IMPRESSION: 1. No acute osseous abnormality. 2. Remote healed distal ulnar fracture deformity. 3. Mild osteoarthritis of the shoulder.
--- NOTE | ~2023-08-27 | XR_ITS ---
EXAMINATION: XR CHEST CLINICAL INFORMATION: Reason for Exam fall pain in right chest COMPARISON: Chest radiograph 11/10/2021 TECHNIQUE: 2 views of the chest FINDINGS: Lines and tubes: None. Clear lungs. No pleural effusion. No pneumothorax. Unchanged cardiomediastinal silhouette. No displaced rib fracture appreciated however chest radiographs have limited sensitivity and the ribs were incompletely imaged. XR/XR chest 2V IMPRESSION: 1. Clear lungs. 2. No displaced rib fracture appreciated however chest radiographs have limited sensitivity and the ribs were incompletely imaged.
--- NOTE | ~2023-08-27 | XR_ITS ---
EXAMINATION: XR elbow LT min 3V, XR shoulder LT min 2V, XR wrist LT min 3V CLINICAL INFORMATION: Reason for Exam pain, injury COMPARISON: None. TECHNIQUE: AP, lateral, and oblique views of the elbow, 4 views of the wrist, 3 views of the shoulder FINDINGS: Remote healed distal ulnar fracture deformity. No acute fracture or dislocation. No elbow effusion. Mild osteoarthritis of the shoulder with small glenohumeral and acromioclavicular osteophytes. Elbow and wrist joint spaces are maintained. No soft tissue abnormality. XR/XR wrist LT min 3V IMPRESSION: 1. No acute osseous abnormality. 2. Remote healed distal ulnar fracture deformity. 3. Mild osteoarthritis of the shoulder.
[2023-08-27 15:50] VITALS: BP 149/101; PULSE 81; RESP 18; TEMP 36.4; O2SAT 97
--- NOTE | 2023-08-27 16:24 | ED_ITS ---
HPI - General Adult General Chief complaint: Fall Stated complaint: fell monday, rib pain Time Seen by Provider: 08/27/23 16:24 Source: patient Mode of arrival: ambulatory Limitations: no limitations History of Present Illness ED Provider: Destini Cabrera PA-C HPI narrative: Patient is a 63 year old assigned male at with a history of HTN and schizophrenia presenting to the emergency department today with left sided rib pain and arm pain after a fall. Patient states that he had a trip and fall 2 days ago and landed on his left side. Patient states that his left ribs and left arm hurt. Patient states that he did not hit his head or have any loss of consciousness. Patient denies any dizziness, lightheadedness, abdominal pain, nausea, vomiting, fever, chills, blurry vision, double vision, loss of vision, chest pain, difficulty breathing, shortness of breath, back pain, night sweats, pain with urination, increased urinary frequency, increased urinary urgency, blood in his urine or stool, syncope or a near syncopal episode, bowel incontinence, bladder incontinence, or any other complaints at this time. Onset (ago): day(s) (2) Location: left (ribs) and upper extremity Severity: mild Severity scale (1-10): 4 Quality: aching and dull Pain Consistency: constant Relieving factors: none Exacerbating factors: movement Associated symptoms: denies other symptoms Treatments prior to arrival: none Related Data Home Medications ?Medication ?Instructions ?Recorded ?Confirmed acetaminophen 500 mg tablet 500 mg PO Q6H PRN 12/01/20 04/28/22 (Tylenol Extra Strength) metoprolol tartrate 50 mg tablet 50 mg PO BID 12/01/20 04/28/22 Previous Rx's ?Medication ?Instructions ?Recorded albuterol sulfate 2.5 mg/3 mL 2.5 mg (3 mL) inhalation Q4H PRN 03/06/20 (0.083 %) solution for nebulization shortness of breath or wheezing #75 mL prednisone 10 mg tablets in a dose 10 mg PO PER PKG DIR #48 ea 03/06/20 pack bisacodyl 5 mg tablet,delayed 10 mg (2 x 5 mg) PO ONCE 04/28/22 release (Dulcolax (bisacodyl)) colonoscopy prep 1 day #2 tabs polyethylene glycol 3350 17 238 g PO ONCE 1 day #238 grams 04/28/22 gram/dose oral powder (Miralax) amoxicillin 875 mg-potassium 1 tab PO BID #14 tabs 04/09/23 clavulanate 125 mg tablet erythromycin 5 mg/gram (0.5 %) eye 0.5 inch ophthalmic (eye) BID 7 04/09/23 ointment days #3.5 grams Allergies Allergy/AdvReac Type Severity Reaction Status Date / Time haloperidol [From HALDOL] Allergy Severe SWELLING Verified 08/27/23 15:52 TONGUE aspirin [ASPIRIN] Allergy Intermediate GI UPSET Verified 08/27/23 15:52 benztropine [From COGENTIN] Allergy Unknown UNKNOWN Verified 08/27/23 15:52 simvastatin [SIMVASTATIN] Allergy Unknown UNKNOWN Verified 08/27/23 15:52 Review of Systems Constitutional: Constitutional: Reports no additional constitutional complaints, Denies chills, Denies fever(s) and Denies night sweats Eyes: Eyes: Reports no additional eye complaints, Denies blurry vision, Denies change in vision, Denies diplopia, Denies eye discharge, Denies loss of vision and Denies eye pain ENT: Denies dizziness Cardiovascular: Cardiovascular: Reports no additional cardiovascular complaints, Denies chest pain, Denies lightheadedness, Denies Loss of Consciousness and Denies dyspnea Respiratory: Respiratory: Reports no additional respiratory complaints and Denies dyspnea Gastrointestinal: Gastrointestinal: Reports no additional gastrointestinal complaints, Denies abdominal pain, Denies melena, Denies hematochezia, Denies change in bowel habits and Denies change in stool character Genitourinary: Genitourinary: Reports no additional male genitourinary complaints, Denies hematuria, Denies oliguria, Denies difficulty urinating, Denies dysuria, Denies urinary frequency, Denies urinary hesitancy, Denies urinary incontinence and Denies urinary urgency Musculoskeletal: Musculoskeletal: Reports no additional musculoskeletal complaints, Denies numbness and Denies tingling Comments: left rib pain, left upper extremity pain Neurologic: Denies dizziness, Denies loss of vision, Denies numbness and Denies tingling Psychiatric: Psychiatric: Reports no additional psychiatric complaints Endocrine: Endocrine: Reports no additional endocrine complaints Hematologic/Lymphatic: Hematologic/Lymphatic: Reports no additional hematologic/lymphatic complaints Allergic/Immunologic: Allergic/Immunologic: Reports no additional allergic/immunologic complaints PMFSH Past Medical History Attestation statement: The following information was validated with the patient. Source: old records reviewed and nursing notes reviewed Medical History Hepatitis C Pulmonary nodules KRISTY (obstructive sleep apnea) Hypertension Schizophrenia Asthma Surgical History Hx of colonoscopy Social History Social History Patient Tobacco Use Status: Former Tobacco user Advance Directives: No Advance Directives Information Provided: No Do you have a plan to hurt others: No Plan Physical Exam ED Vital Signs: Vital Signs - 24 hr 08/27/23 15:50 Temperature 97.5 F Pulse Rate 81 Respiratory Rate 18 Blood Pressure 149/101 H Pulse Oximetry 97 Oxygen Delivery Method Room Air BMI result Body Mass Index 5.9 Const General: cooperative, no acute distress, alert and awake Nutritional Appearance: well nourished Orientation/consciousness: patient oriented x3 Limitations: no limitations HENMT Head: Yes normal to inspection and Yes atraumatic Ears: hearing grossly normal bilaterally and external ears normal General nose exam: Normal external nose present, no nasal discharge noted and no epistaxis Face and sinus: Yes normal facial exam, No abrasion and No laceration Mouth: Normal oral and palatal mucosa present, no drooling and no muffled voice Eyes General: appearance normal, both eyes and all related structures Periorbital: periorbital findings normal Eyelids: Yes eyelids normal Conjunctivae: conjunctivae normal Pupils: Equal, round and reactive pupils present EOM: EOMs intact bilaterally Neck Neck: Yes normal visual inspection, Yes full ROM and Yes no lymphadenopathy Chest Chest palpation & inspection: normal inspection of the chest Resp Effort & Inspection: normal respiratory effort and able to speak in complete sentences GI Inspection: Yes normal to inspection Neuro General: patient oriented x3 and moves all extremities Cranial nerves: Yes Equal, round and reactive pupils present Cognition (Neuro): normal cognition Extrem General: Yes normal to inspection, Yes full ROM and Yes capillary refill normal Psych Appearance: grossly normal Mental Status: mental status grossly normal Affect: normal affect Attitude: cooperative Thought process: Normal thought process present Thought content: Normal thought content present Insight: Good insight present (Psych) Medical Decision Making Medical Decision Making MDM Narrative: Patient is a 63 year old assigned male at with a history of KRISTY, HTN, and Schizophrenia presenting to the emergency department today with left rib and arm pain after a fall. Patient's physical exam was unremarkable. Patient's left shoulder x-ray, left elbow x-ray, left wrist x-ray, and chest x-ray showed no acute process. Patient's chest CT confirmed a left 6th rib fracture. I explained my physical exam findings as well as all test results to the patient. I answered all questions asked by the patient. I stressed the importance of the patient taking his medication as directed (either prescribed or as the over the counter packaging recommends). I stressed the importance of the patient following up with his primary care provider. I stressed the importance of the patient returning to the emergency department immediately if his symptoms were to worsen or if he were to develop any dizziness, shortness of breath, difficulty breathing, chest pain, blurry vision, loss of vision, nausea, vomiting, abdominal pain, fever, chills, back pain, or any other complaints. Patient verbalized agreement and understanding with this treatment plan and discharge. Differential Diagnosis Differential Diagnoses: The differential diagnosis associated with the presentation includes Left upper extremity pain Left rib pain Left rib fracture Admission/Observation Consideration of admission/observation: Escalation of care including admission/observation considered Patient would have been admitted to the hospital had his work up had any findings where hospital admission was appropriate and his clinical presentation warranted hospital admission. Independent Interpretation I performed an independent interpretation of an: Plain X-Ray and CT Scan Interpretation: My interpretation is in agreement with the radiologist's impression of these imaging studies. EXAMINATION: CT CHEST WITHOUT CONTRAST CLINICAL INFORMATION: Left-sided rib pain after a fall COMPARISON: Chest x-ray August 27, 2023 CT of chest January 30, 2019 TECHNIQUE: Multidetector volumetric CT imaging of the chest was done. Axial MIP volume rendering provided. Sagittal and coronal reformatted images were obtained. This CT examination was performed using dose optimization techniques as appropriate, variously including the following: *Automated exposure control *Adjustment of mA and/or kV according to patient size (this includes techniques or standardized protocols for targeted exams where dose is matched to indication/reason for exam; i.e. extremities or head) *Use of iterative reconstruction technique DLP: 337 mGy-cm FINDINGS: LUNGS: The lungs are clear with no evidence of inflammation or nodules. MEDIASTINUM: The mediastinum is normal. CORONARY ARTERY CALCIFICATION: None visualized on this study. PLEURA: There is no pleural effusion. No pleural mass or thickening. AXILLA: No lymphadenopathy. UPPER ABDOMEN: Unremarkable. OSSEOUS STRUCTURES: Nondisplaced fracture of the anterior left sixth rib. There are old healed rib fractures the left lateral sixth and seventh ribs. CT/CT chest wo IV con IMPRESSION: Nondisplaced fracture of the anterior left sixth rib. Fleischner guidelines were followed. Dictated By: Chas Tobin MD Signed By: Electronically signed by Chas Tobin MD 08/27/23 1708 EXAMINATION: XR elbow LT min 3V, XR shoulder LT min 2V, XR wrist LT min 3V CLINICAL INFORMATION: Reason for Exam pain, injury COMPARISON: None. TECHNIQUE: AP, lateral, and oblique views of the elbow, 4 views of the wrist, 3 views of the shoulder FINDINGS: Remote healed distal ulnar fracture deformity. No acute fracture or dislocation. No elbow effusion. Mild osteoarthritis of the shoulder with small glenohumeral and acromioclavicular osteophytes. Elbow and wrist joint spaces are maintained. No soft tissue abnormality. XR/XR wrist LT min 3V IMPRESSION: 1. No acute osseous abnormality. 2. Remote healed distal ulnar fracture deformity. 3. Mild osteoarthritis of the shoulder. Dictated By: Alexandra Johnson MD Signed By: Electronically signed by Alexandra Johnson MD 08/27/23 1655 EXAMINATION: XR CHEST CLINICAL INFORMATION: Reason for Exam fall pain in right chest COMPARISON: Chest radiograph 11/10/2021 TECHNIQUE: 2 views of the chest FINDINGS: Lines and tubes: None. Clear lungs. No pleural effusion. No pneumothorax. Unchanged cardiomediastinal silhouette. No displaced rib fracture appreciated however chest radiographs have limited sensitivity and the ribs were incompletely imaged. XR/XR chest 2V IMPRESSION: 1. Clear lungs. 2. No displaced rib fracture appreciated however chest radiographs have limited sensitivity and the ribs were incompletely imaged. Dictated By: Alexandra Johnson MD Signed By: Electronically signed by Alexandra Johnson MD 08/27/23 [id number] Radiology Impression Discussion of test interpretation with radiology: I have reviewed the radiologist's reading. Chronic Conditions Patient?s care impacted by: Hypertension Discharge Plan Discharge Clinical Impression: Fracture of rib Patient Disposition: Home, Self-Care Instructions: Rib Fracture (ED) Additional Instructions: Follow up with your primary care provider. Return to the emergency department immediately if your symptoms worsen or if you develop any dizziness, shortness of breath, difficulty breathing, chest pain, blurry vision, loss of vision, nausea, vomiting, abdominal pain, fever, chills, back pain, or any other complaints. Prescriptions: No Action albuterol sulfate 2.5 mg /3 mL (0.083 %) solution for nebulization 2.5 mg inhalation Q4H PRN (Reason: shortness of breath or wheezing) Qty: 75 0RF prednisone 10 mg tablets,dose pack 10 mg PO PER PKG DIR Qty: 48 0RF Rx Instructions: Take 4 tabs x4 days, then 3 tabs x4 days, then 2 tabs x4 days, then 1 tab x4 days. discard remainder erythromycin 5 mg/gram (0.5 %) ointment 0.5 inch ophthalmic (eye) BID 7 Days Qty: 3.5 0RF amoxicillin-pot clavulanate 875-125 mg tablet 1 tab PO BID Qty: 14 0RF acetaminophen [Tylenol Extra Strength] 500 mg tablet 500 mg PO Q6H PRN metoprolol tartrate 50 mg tablet 50 mg PO BID bisacodyl [Dulcolax (bisacodyl)] 5 mg tablet,delayed release (DR/EC) 10 mg PO ONCE 1 Days Qty: 2 0RF Rx Instructions: Take 2 tablets by mouth at 12:00pm the day before your procedure. polyethylene glycol 3350 [Miralax] 17 gram/dose powder 238 g PO ONCE 1 Days Qty: 238 0RF Rx Instructions: Take as directed by mouth the day before your procedure. Referrals: Natalee Matt DO [Primary Care Provider] - Print Language: Irish
[2023-08-27 17:50] VITALS: BP 139/83; PULSE 84; RESP 16; TEMP 36.6; O2SAT 98
== END 2023-08-27 17:53 | disposition home or self-care (01) ==
PROVIDERS: Emergency Provider Emergency Medicine Emergency Medical Services; PCP Family Medicine
DX: S22.32XA Fracture of one rib, left side, initial encounter for closed fracture (principal); S27.9XXA Injury of unspecified intrathoracic organ, initial encounter; W19.XXXA Unspecified fall, initial encounter; Y93.9 Activity, unspecified; Y92.9 Unspecified place or not applicable; Y99.9 Unspecified external cause status; R07.81 Pleurodynia; I10 Essential (primary) hypertension; M79.602 Pain in left arm; F20.9 Schizophrenia, unspecified
CPT/HCPCS: 71046; 71250; 73030; 73080; 73110; 99282; 99284

== ENCOUNTER 2023-11-20 10:55 | Outpatient (REF) | payer OTHER, SELFPAY ==
[2023-11-20 12:19] LABS: Hemoglobin 12.4 g/dl (14.0-18.0); Mean Corpuscular HGB Conc 33.5 g/dl (31.0-36.0); Mean Corpuscular Hemoglobin 31.7 pg (27.0-33.0); Mean Corpuscular Volume 94.6 fL (80.0-98.0); Mean Platelet Volume 10.2 fL (9.4-12.4); Platelet Count 273 X10*3/uL (160-400); Red Blood Count 3.91 X10*6/uL (4.60-5.80); Red Cell Distribution Width 12.3 % (11.0-16.0); White Blood Count 9.5 X10*3/uL (4.8-10.8)
[2023-11-20 12:25] LABS: Estimated Average Glucose 180 mg/dL; Hemoglobin A1c % 7.9 % (<6.0)
[2023-11-20 12:43] LABS: Microalbum/Creatinine Ratio Ur 34.1 ug/mg cr (<30)
[2023-11-20 12:46] LABS: Rheumatoid Factor < 13.0 IU/mL (<15.0)
[2023-11-20 12:47] LABS: Alanine Aminotransferase 21 U/L (0-40); Albumin Level 4.3 g/dL (3.5-5.0); Alkaline Phosphatase 74 U/L (39-117); Anion Gap 11 (12-20); Aspartate Amino Transferase 18 U/L (5-37); Bilirubin Direct 0.2 mg/dL (0.0-0.5); Bilirubin Total 0.5 mg/dL (0.0-1.0); Blood Urea Nitrogen 8 mg/dL (9-16); C Reactive Protein 1.14 mg/dL (< or = 0.50); Carbon Dioxide 31 mmol/L (22-29); Chloride 102 mmol/L (96-108); Cholesterol 166 mg/dL (<200); Estimated Glomerular Filt Rate 59; Glucose Random 153 mg/dL (60-115); HDL Cholesterol 37 mg/dL (>40); LDL Cholesterol Calculated 91 mg/dL (<100); Potassium 3.6 mmol/L (3.3-5.1); Sodium 140 mmol/L (135-145); Total Protein 7.8 g/dL (6.5-8.0); Triglycerides 193 mg/dL (<150)
[2023-11-20 12:55] LABS: HBS Num1 0.12 mIU/mL (0-7.99); HBsAGNum1 0.31 S/CO (0.00-0.99); HIV AB/AG Nonreactive (Nonreactive); HIV Num 1 0.06 S/CO (0.00-0.99); Hepatitis B Surface Antigen Negative (Negative); ~HepC Num1 15.36 S/CO (0.00-0.79); ~Hepatitis B Surface Antibody NONREACTIVE (Nonreactive); ~Hepatitis C Antibody Reactive (Nonreactive)
[2023-11-20 12:58] LABS: Erythrocyte Sedimentation Rate 21 MM/HR (0-15)
[2023-11-20 13:09] LABS: Free T4 (Free Thyroxine) 0.91 ng/dL (0.71-1.85); Thyroid Stimulating Hormone 0.53 uIU/mL (0.32-4.0)
[2023-11-20 13:50] LABS: CT PCR NOT DETECTED (Not Detect.); NG PCR NOT DETECTED (Not Detect.)
[2023-11-21 22:13] LABS: Lyme Abs Screen <0.90 index
[2023-11-22 11:03] LABS: RPR Rapid Plasma Reagin NON-REACTIVE (NON-REACTIVE)
[2023-11-22 11:09] LABS: HCV Log PCR <1.18 NOT DETECTED Log IU/mL (NOT DETECTED); HepC Viral Load <15 NOT DETECTED IU/mL (NOT DETECTED)
[2023-11-23 14:58] LABS: Anti Nuclear Antibody Screen POSITIVE (NEGATIVE)
== END 2023-11-20 10:56 | disposition home or self-care (01) ==
LOC: HO.LAB 10:55
PROVIDERS: PCP Family Medicine; Visit Provider Family Medicine
DX: Z00.00 Encounter for general adult medical examination without abnormal findings (principal); M25.50 Pain in unspecified joint; E11.9 Type 2 diabetes mellitus without complications
CPT/HCPCS: 36415; 80048; 80061; 80076; 82043; 82306; 82570; 83036; 84439; 84443; 85027; 85652; 86038; 86039; 86140; 86431; 86592; 86617; 86618; 86706; 86803; 87340; 87389; 87491; 87522; 87591

== ENCOUNTER 2024-02-03 12:52 | Emergency (ER) | payer OTHER, SELFPAY ==
[2024-02-03 13:30] VITALS: BP 124/91; PULSE 82; RESP 20; TEMP 36.9; O2SAT 99; BMI 42.9
--- NOTE | 2024-02-03 13:32 | ED.GENADULT ---
HPI - General Adult General Chief complaint: Dental/Oral Stated complaint: mouth infection Time Seen by Provider: 02/03/24 13:39 Source: patient and RN notes reviewed Mode of arrival: ambulatory Limitations: no limitations History of Present Illness ED Provider: Jailene Barnhart PA-C HPI narrative: This is a 63-year-old male, with a history of KRISTY, schizophrenia, and hypertension, who presents emergency department with complaints of oral pain x1 month. Patient reports that he has had oral pain for the last month. He has been using denture pace however states that increased pain upper dentition. No fevers or chills. He has not had denture fitting in over a 1 year. He has not followed up with his dentist. No other complaints or concerns at this time. MD complaint: Mouth pain Onset (ago): month(s) Quality: aching Pain Consistency: constant Relieving factors: none Exacerbating factors: none Associated symptoms: denies other symptoms Treatments prior to arrival: none Related Data Home Medications ?Medication ?Instructions ?Recorded ?Confirmed acetaminophen 500 mg tablet 500 mg PO Q6H PRN 12/01/20 04/28/22 (Tylenol Extra Strength) metoprolol tartrate 50 mg tablet 50 mg PO BID 12/01/20 04/28/22 Previous Rx's ?Medication ?Instructions ?Recorded albuterol sulfate 2.5 mg/3 mL 2.5 mg (3 mL) inhalation Q4H PRN 03/06/20 (0.083 %) solution for nebulization shortness of breath or wheezing #75 mL prednisone 10 mg tablets in a dose 10 mg PO PER PKG DIR #48 ea 03/06/20 pack bisacodyl 5 mg tablet,delayed 10 mg (2 x 5 mg) PO ONCE 04/28/22 release (Dulcolax (bisacodyl)) colonoscopy prep 1 day #2 tabs polyethylene glycol 3350 17 238 g PO ONCE 1 day #238 grams 04/28/22 gram/dose oral powder (Miralax) amoxicillin 875 mg-potassium 1 tab PO BID #14 tabs 04/09/23 clavulanate 125 mg tablet erythromycin 5 mg/gram (0.5 %) eye 0.5 inch ophthalmic (eye) BID 7 04/09/23 ointment days #3.5 grams amoxicillin 875 mg-potassium 1 tab PO BID 7 days #14 tabs 02/03/24 clavulanate 125 mg tablet Allergies Allergy/AdvReac Type Severity Reaction Status Date / Time haloperidol [From HALDOL] Allergy Severe SWELLING Verified 02/03/24 13:33 TONGUE aspirin [ASPIRIN] Allergy Intermediate GI UPSET Verified 02/03/24 13:33 benztropine [From COGENTIN] Allergy Unknown UNKNOWN Verified 02/03/24 13:33 simvastatin [SIMVASTATIN] Allergy Unknown UNKNOWN Verified 02/03/24 13:33 Review of Systems Review of Systems: Yes all other systems are reviewed and are negative Constitutional: Constitutional: Reports as per HPI [facility] Past Medical History Medical History Hepatitis C Pulmonary nodules KRISTY (obstructive sleep apnea) Hypertension Schizophrenia Asthma Surgical History Hx of colonoscopy Social History Social History Patient Tobacco Use Status: Former Tobacco user Advance Directives: No Advance Directives Information Provided: No Physical Exam ED Vital Signs: Vital Signs - 24 hr 02/03/24 13:30 02/03/24 13:49 Temperature 98.5 F 98.5 F Pulse Rate 82 82 Respiratory Rate 20 20 Blood Pressure 124/91 H 124/91 H Pulse Oximetry 99 99 Oxygen Delivery Method Room Air Room Air BMI result Body Mass Index 42.9 Const General: cooperative, comfortable and no acute distress Orientation/consciousness: patient oriented x3 Limitations: no limitations HENMT Other: No dentition throughout, he has tenderness palpation in the left upper gumline, no obvious fluctuance or induration. No obvious abscess speaking full sentences Head: Yes normal to inspection, Yes normocephalic and Yes atraumatic Ears: hearing grossly normal bilaterally General nose exam: Normal external nose present Face and sinus: Yes normal facial exam Mouth: Normal oral and palatal mucosa present, oropharynx normal and moist mucous membranes Throat: Yes posterior oropharynx normal Eyes General: appearance normal, both eyes and all related structures Eyelids: Yes eyelids normal Conjunctivae: conjunctivae normal Sclerae: sclerae normal Pupils: Equal, round and reactive pupils present EOM: EOMs intact bilaterally Neck Neck: Yes normal visual inspection, Yes full ROM and Yes no lymphadenopathy Lymphatic: no lymphadenopathy noted Chest Chest palpation & inspection: normal inspection of the chest Resp Effort & Inspection: normal respiratory effort and able to speak in complete sentences Auscultation: clear to auscultation bilaterally, no crackles, no rales, no rhonchi and no wheezes Cardio Rate: regular rate Rhythm: regular rhythm Heart sounds: S1 normal heart sound present and S2 normal heart sound present GI Inspection: Yes normal to inspection Skin General skin exam: no rashes or lesions noted Trauma: no lacerations or abrasions Wounds: no wounds Neuro General: patient oriented x3 and moves all extremities Cranial nerves: Yes Equal, round and reactive pupils present Extrem General: Yes normal to inspection Right upper extremity: normal to inspection Left upper extremity: normal to inspection Right lower extremity: normal to inspection Left lower extremity: normal to inspection Medical Decision Making Medical Decision Making MDM Narrative: 63-year-old male presenting to the emergency department with complaints of mouth pain for the last month. On arrival, vital signs within normal limits. He is afebrile and speaking in full sentences. He has tenderness palpation on the upper gumline, no obvious dental abscess. He has no teeth, strictly only uses dentures. He will follow-up with his dentist. Treated with antibiotics, given strict return precautions. Patient stable for discharge. Differential Diagnosis Differential Diagnoses: The differential diagnosis associated with the presentation includes Dental abscess, dental decay, gingivitis Discharge Plan Discharge Clinical Impression: Acute oral pain Patient Disposition: Home, Self-Care Instructions: Toothache (ED) Additional Instructions: You were seen in the ER for mouth pain. Take prescribed antibiotic as directed. Finish the entire course even if you are feeling better. Call your dentist on monday to follow up. If any new or worsening symptoms occur including but not limited to fevers, difficulty swallowing, please seek emergent care. Prescriptions: New amoxicillin-pot clavulanate 875-125 mg tablet 1 tab PO BID 7 Days Qty: 14 0RF No Action albuterol sulfate 2.5 mg /3 mL (0.083 %) solution for nebulization 2.5 mg inhalation Q4H PRN (Reason: shortness of breath or wheezing) Qty: 75 0RF prednisone 10 mg tablets,dose pack 10 mg PO PER PKG DIR Qty: 48 0RF Rx Instructions: Take 4 tabs x4 days, then 3 tabs x4 days, then 2 tabs x4 days, then 1 tab x4 days. discard remainder erythromycin 5 mg/gram (0.5 %) ointment 0.5 inch ophthalmic (eye) BID 7 Days Qty: 3.5 0RF amoxicillin-pot clavulanate 875-125 mg tablet 1 tab PO BID Qty: 14 0RF acetaminophen [Tylenol Extra Strength] 500 mg tablet 500 mg PO Q6H PRN metoprolol tartrate 50 mg tablet 50 mg PO BID bisacodyl [Dulcolax (bisacodyl)] 5 mg tablet,delayed release (DR/EC) 10 mg PO ONCE 1 Days Qty: 2 0RF Rx Instructions: Take 2 tablets by mouth at 12:00pm the day before your procedure. polyethylene glycol 3350 [Miralax] 17 gram/dose powder 238 g PO ONCE 1 Days Qty: 238 0RF Rx Instructions: Take as directed by mouth the day before your procedure. Interventions: ED Discharge Assessment Last Done: 02/03/24 13:49 Discharge Date/Time: 02/03/24 13:50 Print Language: Russian
[2024-02-03 13:49] VITALS: BP 124/91; PULSE 82; RESP 20; TEMP 36.9; O2SAT 99
== END 2024-02-03 13:50 | disposition home or self-care (01) ==
PROVIDERS: Emergency Provider Emergency Medicine; PCP Family Medicine
DX: K08.89 Other specified disorders of teeth and supporting structures (principal)
CPT/HCPCS: 99282; 99283

== ENCOUNTER 2024-10-14 12:08 | Outpatient (REF) | payer OTHER, SELFPAY ==
--- NOTE | ~2024-10-14 | XR_ITS ---
EXAMINATION: XR HIP, RIGHT CLINICAL INFORMATION: worsening hip pain/giving out COMPARISON: Correlated to lumbar spine x-ray dated November 05, 2020. TECHNIQUE: AP and oblique views of the right hip. FINDINGS: There are 2 metallic screws at the superior aspect of the right acetabulum. There is joint space narrowing and sclerosis along the articular surface as well as subchondral cyst formation in the right coxofemoral joint. No gross malalignment. No lytic or blastic lesions. XR/XR hip RT min 2V IMPRESSION: Moderate to severe osteoarthritis/osteoarthrosis right hip. Stable 2 metallic screws, right acetabulum. Electronically signed by: Wild Sierra MD 10/14/2024 12:33 PM EDT
--- OUTSIDE RECORDS SUMMARY | 2024-10-14 13:28 | XMS_ITS | Clinical Summary ---
Author Organization [address] [facility] Address [address] [place] [address] Phone Care Team Providers Care Braider Operator Name Role Phone Natalee Matt DO Primary Care Provider [phone] Social History Tobacco Use Types Packs/Day Years Used Date Smoking Tobacco: Never Assessed Sex and Gender Information Value Date Recorded Sex Assigned at Not on file Legal Sex Male 1:55 PM EST Gender Identity Not on file Sexual Orientation Not on file Plan of Treatment Health Maintenance Due Date Last Done Comments DTaP,Tdap,and Td Vaccines (1 - Tdap) 02/17/1979 Pneumococcal Vaccine: 50+ Ye ars (1 of 2 - PCV) 02/17/1979 Zoster Vaccines (1 of 2) 02/17/2010 COVID-19 Vaccine ( - 2023-2 5 season) 2023 Cholesterol Screening (Lipid Panel) 01/26/2024 Colorectal Cancer Screening: Colonoscopy 01/26/2024 HIV Screening 01/26/2024 Hepatitis C Screening 01/26/2024 Medicare Annual Wellness Visit 01/26/2024 Social Influencers of Health Screening 01/26/2024 Depression Screening 02/21/2024 Influenza Vaccine (#1) 2024 RSV Immunization Adult Patie nts (1 - 1-dose 75+ series) 02/17/2035 HIB Vaccines Aged Out No longer eligi ble based on patient's age to complete this topic HPV Vaccines Aged Out No longer eligi ble based on patient's age to complete this topic Hepatitis A Vaccines Aged Out No long er eligible based on patient's age to complete this topic Hepatitis B Vaccines Aged Out No long er eligible based on patient's age to complete this topic IPV Vaccines Aged Out No longer eligi ble based on patient's age to complete this topic MMR Vaccines Aged Out No longer eligi ble based on patient's age to complete this topic Meningococcal ACWY Vaccine Aged Out N o longer eligible based on patient's age to complete this topic Meningococcal B Vaccine Aged Out No l onger eligible based on patient's age to complete this topic RSV Immunization Patients Un rustam 20 months Aged Out No longer eligible b ased on patient's age to complete this topic Varicella Vaccines Aged Out No longer eligible based on patient's age to complete this topic Insurance [place] [address] MEDICARE Member Subscriber Plan / Payer (Ef fective 2024-Present) Name:Dutch Royal Relation to Subscriber:Self Name:Dutch Royal Payer ID:[id number] Group ID:Not on file Type:Not on file Address: [place] [address] [place] [id number] Care Teams Braider Operator Relationship Specialty Start Date End Date Natalee Matt DO [address] [place] [address] PCP - General Family Medicine 01/26/24
--- OUTSIDE RECORDS SUMMARY | 2024-10-14 13:29 | XMS_ITS | Encounter Summary ---
Author Organization [employer] Address [address] [facility] [address] [place] [address] Care Team Providers Care Service Establishment Attendant Name Role Phone Natlaee Matt DO Primary Care Provider + [phone] Reason for Visit * Reason Comments Med Refill Encounter Details Date Type Department Care Team ([facility] st Contact Info) Description 01/03/2023 Refill [facility] MED[facility]INE [address] [place], [place] [phone] Natalee Matt DO [address] [place], [place] [phone] Social History Tobacco Use Types Packs/Day Years Used Date Smoking Tobacco: Former Cigarettes Passive Smoke Exposure: Never Smokeless Tobacco: Never Alcohol Use Standard Drinks/Week Comments Never 0 (1 standard drink = 0.6 oz pur e alcohol) Depression Answer Date Recorded Patient Health Questionnaire-9 Score 0 09/09/2022 Housing Stability Answer Date Recorded What is your housing situation today? I have neil sanchez 12/05/[address] you li ve. Do you have problems with any of the following? None of the above 12/05/2022 Food Insecurity Answer Date Recorded Within the past 12 months, y ou worried that your food would run out before you got money to buy more: Never True 12/05/2022 Within the past 12 months,th e food you bought just didn't last and you didn't have enough money to get more: Never True Transportation Answer Date Recorded In the past 12 months, has l ack of transportation kept you from medical appts, meetings, work or from getting things needed for daily living? No 12/05/2022 Utilities Answer Date Recorded In the past 12 months, has t he [employer], [employer], oil or water company threatened to shut off services in your home? No 12/05/2022 Depression Answer Date Recorded Patient Health Questionnaire-2 Score 0 09/09/2022 Sex and Gender Information Value Date Recorded Sex Assigned at Male 12/20/2021 10:22 AM EDT Legal Sex Male 10:22 AM EDT Gender Identity Male 12/20/2021 10:22 AM EDT Sexual Orientation Straight 12/20/2021 10 :22 AM EDT documented as of this encounter Plan of Treatment Not on file documented as of this encounter Visit Diagnoses Not on filedocumented in this encounter Additional Health Concerns Assessment Noted Time PHQ-9 Depression Total Score: 0 09/10/19 23 9:07 AM EDT documented as of this encounter Care Teams Service Establishment Attendant Relationship Specialty Start Date End Date Natalee Matt DO [address] [place] [id number] PCP - General Family Medicine 07/13/11 [facility] 11/16/15 documented as of this encounter
[2024-10-15 04:54] LABS: CT PCR Urine NOT DETECTED (Not Detect.); NG PCR Urine NOT DETECTED (Not Detect.)
== END 2024-10-14 12:09 | disposition home or self-care (01) ==
LOC: HO.HHCX 12:08
PROVIDERS: PCP Family Medicine; Visit Provider Family Medicine
DX: M25.551 Pain in right hip (principal); R32 Unspecified urinary incontinence
CPT/HCPCS: 73502; 87086; 87491; 87591

== ENCOUNTER → 2024-10-14 12:20 | Outpatient (BNV) | payer OTHER, SELFPAY | PROVIDERS: PCP Family Medicine; Visit Provider Radiology Diagnostic Radiology | DX: M16.11 Unilateral primary osteoarthritis, right hip (principal) | CPT/HCPCS: 73502 ==

== ENCOUNTER 2024-11-04 14:25 | Outpatient (REF) | payer OTHER, SELFPAY ==
[2024-11-04 16:26] LABS: Hematocrit 36.9 % (42.0-52.0); Hemoglobin 12.6 g/dl (14.0-18.0); Mean Corpuscular HGB Conc 34.1 g/dl (31.0-36.0); Mean Corpuscular Hemoglobin 32.6 pg (27.0-33.0); Mean Corpuscular Volume 95.3 fL (80.0-98.0); NRBC Abs Auto 0.000 X10*3/uL (0.0-0.012); NRBC Pct Auto 0.0 /100WBC (0.0-0.2); Platelet Count 287 X10*3/uL (160-400); Red Blood Count 3.87 X10*6/uL (4.60-5.80); White Blood Count 12.4 X10*3/uL (4.8-10.8)
[2024-11-04 16:48] LABS: Alanine Aminotransferase 17 U/L (0-40); Albumin Level 4.7 g/dL (3.5-5.0); Alkaline Phosphatase 66 U/L (39-117); Anion Gap 13 (12-20); Aspartate Amino Transferase 31 U/L (5-37); Blood Urea Nitrogen 7 mg/dL (9-16); Calcium 9.6 mg/dL (8.4-10.2); Carbon Dioxide 27 mmol/L (22-29); Chloride 104 mmol/L (96-108); Cholesterol 144 mg/dL (<200); Estimated Glomerular Filt Rate > 60; HDL Cholesterol 33 mg/dL (>40); Potassium 3.6 mmol/L (3.3-5.1); Sodium 140 mmol/L (135-145); Total Protein 7.8 g/dL (6.5-8.0); Triglycerides 165 mg/dL (<150)
[2024-11-04 16:57] LABS: Microalbum/Creatinine Ratio Ur 9.3 ug/mg cr (<30)
[2024-11-04 17:05] LABS: Free T4 (Free Thyroxine) 0.95 ng/dL (0.71-1.85); Thyroid Stimulating Hormone 0.96 uIU/mL (0.32-4.0)
--- OUTSIDE RECORDS SUMMARY | 2024-11-04 19:53 | XMS_ITS | Encounter Summary ---
Author Organization [employer] Address [address] [facility] [address] [place] [address] Care Team Providers Care Material Crew Supervisor Name Role Phone Natalee Matt DO Primary Care Provider + [phone] Reason for Visit * Reason Onset Date Comments fyi 10/10/2024 Encounter Details Date Type Department Care Team ([facility] st Contact Info) Description 10/10/2024 Telephone [facility] MEDICINE [address] [place], [place] [phone] Natalee Matt DO [address] [place], [place] [phone] fyi Social History Tobacco Use Types Packs/Day Years Used Date Smoking Tobacco: Some Days Cigarettes Passive Smoke Exposure: Never Smokeless Tobacco: Never Alcohol Use Standard Drinks/Week Comments Never 0 (1 standard drink = 0.6 oz pur e alcohol) Depression Answer Date Recorded Patient Health Questionnaire-9 Score 5 11/20/2023 Patient Health Questionnaire-9 Score 5 11/20/2023 Last PHQ-9: Questionnaire Data Not on file 0 11/20/2023 Housing Stability Answer Date Recorded What is your housing situation today? I have neil sanchez 06/15/[address] you li ve. Do you have problems with any of the following? None of the above 06/15/2023 Food Insecurity Answer Date Recorded Within the past 12 months, y ou worried that your food would run out before you got money to buy more: Never True 06/15/2023 Within the past 12 months,th e food you bought just didn't last and you didn't have enough money to get more: Never True Transportation Answer Date Recorded In the past 12 months, has l ack of transportation kept you from medical appts, meetings, work or from getting things needed for daily living? No 06/15/2023 Utilities Answer Date Recorded In the past 12 months, has t he electric, gas, oil or water company threatened to shut off services in your home? No 06/15/2023 Depression Answer Date Recorded Patient Health Questionnaire-2 Score 1 11/20/2023 Sex and Gender Information Value Date Recorded Sex Assigned at Male 12/20/2021 10:22 AM EDT Legal Sex Male 10:22 AM EDT Gender Identity Male 12/20/2021 10:22 AM EDT Sexual Orientation Straight 12/20/2021 10 :22 AM EDT documented as of this encounter Miscellaneous Notes * Telephone Encounter - Wing Elizabeth RN - 10/10/2024 2:34 PM EDT Tc to [employer] regarding not above. Unable to reach her, left message to call back. * Telephone Encounter - Mely Riley - 10/10/2024 8:17 AM EDT Tc from Dariela at [facility] calling to notify that pt has refuced trulicity the last 2 weeks and states he will think about it for next week. Contact [facility] [phone] documented in this encounter Plan of Treatment Not on file documented as of this encounter Visit Diagnoses Not on filedocumented in this encounter Additional Health Concerns Assessment Noted Time PHQ-9 Depression Total Score: 5 11/20/19 24 10:07 AM EDT documented as of this encounter Care Teams Material Crew Supervisor Relationship Specialty Start Date End Date Natalee Matt DO [address] [place] [id number] PCP - General Family Medicine 07/13/11 [facility] 11/16/15 documented as of this encounter
--- OUTSIDE RECORDS SUMMARY | 2024-11-04 19:53 | XMS_ITS | Encounter Summary ---
Author Organization [employer] Address [address] [facility] [address] [place] [address] Care Team Providers Care Body Shop Manager Name Role Phone Natalee Matt DO Primary Care Provider + [phone] Reason for Visit * Reason Comments Med Change Request Encounter Details Date Type Department Care Team ([facility] Contact Info) Description 09/11/2024 Refill [facility] MEDICINE [address] [place], [place] [phone] Natalee Matt DO [address] [place], [place] [phone] Social History Tobacco Use Types Packs/Day Years [...] documented as of this encounter Care Teams Body Shop Manager Relationship Specialty Start Date End Date Natalee Matt DO [address] [place] [id number] PCP - General Family Medicine 07/13/11 [facility] 11/16/15 documented as of this encounter
--- OUTSIDE RECORDS SUMMARY | 2024-11-04 19:53 | XMS_ITS | Encounter Summary ---
Author Organization [employer] Address [address] [facility] 7t [place] [address] Care Team Providers Care Sales Host Name Role Phone Natalee Matt DO Primary Care Provider + [phone] Reason for Visit * Reason Onset Date Comments Nurse Triage 06/07/2023 Encounter Details Date Type Department Care Team ([facility] st Contact Info) Description 06/07/2023 Telephone [facility] MEDICINE [address] [place], [place] [phone] Natalee Matt DO [address] [place], [place] [phone] Nurse Triage Social History Tobacco Use Types Packs/Day Years [...] encounter Miscellaneous Notes * Telephone Encounter - Ascencion Teresa - 06/07/2023 8:23 AM EDT Symptom: High Blood Pressure - Caller Reports Outcome: Schedule an urgent appointment (within 1 hour) or talk to a nurse or provider soon Reason: Getting worse The caller accepted this outcome 144/97 right arm documented in this encounter Plan of Treatment Not on file documented as of this encounter Visit Diagnoses Not on filedocumented in this encounter Additional Health Concerns Assessment Noted Time PHQ-9 Depression Total Score: 0 09/10/19 9:07 AM EDT documented as of this encounter Care Teams Sales Host Relationship Specialty Start Date End Date Natalee Matt DO [address] [place] [id number] PCP - General Family Medicine 07/13/11 [facility] 11/16/15 documented as of this encounter
--- OUTSIDE RECORDS SUMMARY | 2024-11-04 19:53 | XMS_ITS | Encounter Summary ---
Author Organization [employer] Address [address] [facility] 7t [place] [address] Care Team Providers Care Flash Ranging Crewmember Name Role Phone Natalee Matt DO Primary Care Provider + [phone] Reason for Visit * Reason Comments Med Refill Encounter Details Date Type Department Care Team ([facility] st Contact Info) Description 01/03/2023 Refill [facility] MEDICINE [address] [place], [place] [phone] Natalee Matt DO [address] [place], [place] [phone] Social History Tobacco Use Types Packs/Day Years [...] the past 12 months, has t he [employer], [employer], oil or water company threatened to shut [...] documented as of this encounter Care Teams Flash Ranging Crewmember Relationship Specialty Start Date End Date Natalee Matt DO [address] [place] [id number] PCP - General Family Medicine 07/13/11 [facility] 11/16/15 documented as of this encounter
--- OUTSIDE RECORDS SUMMARY | 2024-11-04 19:53 | XMS_ITS | Encounter Summary ---
Author Organization [employer] Address [address] [facility] 7t [place] [address] Care Team Providers Care Head Sampler Name Role Phone Natalee Matt DO Primary Care Provider + [phone] Encounter Details Date Type Department Care Team ([facility] st Contact Info) Description 02/28/2022 Orders Only [facility] MEDICINE [address] [place] [address] Amanda Denton LPN Social History Tobacco Use Types Packs/Day Years [...] Diagnoses Not on filedocumented in this encounter Care Teams Head Sampler Relationship Specialty Start Date End Date Natalee Matt DO [address] [place] [address] PCP - General Family Medicine 07/13/11 [facility] 11/16/15 documented as of this encounter
--- OUTSIDE RECORDS SUMMARY | 2024-11-04 19:53 | XMS_ITS | Encounter Summary ---
Author Organization [employer] Address [address] [facility] 7t [place] [address] Care Team Providers Care Textile Conversion Manager Name Role Phone Natalee Matt DO Primary Care Provider + [phone] Reason for Visit * Reason Comments Med Refill Encounter Details Date Type Department Care Team ([facility] st Contact Info) Description 03/20/2023 Refill [facility] MEDICINE 230 [place], [place] [phone] Natalee Matt DO 230 [place], [place] [phone] Chronic neck and back pain Social History Tobacco Use Types Packs/Day Years [...] documented as of this encounter Visit Diagnoses Diagnosis Chronic neck and back pain documented in this encounter Additional Health Concerns Assessment Noted Time PHQ-9 Depression Total Score: 0 09/10/19 9:07 AM EDT documented as of this encounter Care Teams Textile Conversion Manager Relationship Specialty Start Date End Date Natalee Matt DO [address] [place] [address] PCP - General Family Medicine 07/13/11 [facility] 11/16/15 documented as of this encounter
--- OUTSIDE RECORDS SUMMARY | 2024-11-04 19:53 | XMS_ITS | Encounter Summary ---
Author Organization [employer] Address [address] [facility] 7t [place] [address] Care Team Providers Care Hardboard Supervisor Name Role Phone Natalee Matt DO Primary Care Provider + [phone] Reason for Visit * Reason Onset Date Comments Med Refill 09/30/2024 Encounter Details Date Type Department Care Team ([facility] st Contact Info) Description 09/30/2024 Telephone [facility] MEDICINE 230 [place], [place] [phone] Natalee Matt DO [address] [place], [place] [phone] Med Refill Social History Tobacco Use Types Packs/Day Years [...] encounter Miscellaneous Notes * Telephone Encounter - Natalee Deutsch LPN - 09/30/2024 1:34 PM EDT Medication was sent to [facility] #[id number] on 08/29/24 with 5 refills. * Telephone Encounter - Luz Maria Bullock - 09/30/2024 1:31 PM EDT TC from pt requesting medication refill. Medications needing refill : fluticasone furoate (Arnuity Ellipta) 100 MCG/ACT inhaler To be sent to: [facility]/pharmacy #[id number] - [address] documented in this encounter Plan of Treatment Not on file documented as of this encounter Visit Diagnoses Not on filedocumented in this encounter Additional Health Concerns Assessment Noted Time PHQ-9 Depression Total Score: 5 11/20/19 24 10:07 AM EDT documented as of this encounter Care Teams Hardboard Supervisor Relationship Specialty Start Date End Date Natalee Matt DO [address] [place] [address] PCP - General Family Medicine 07/13/11 [facility] 11/16/15 documented as of this encounter
--- OUTSIDE RECORDS SUMMARY | 2024-11-04 19:53 | XMS_ITS | Encounter Summary ---
Author Organization [employer] Address [address] [facility] 7t [place] [address] Care Team Providers Care Collar Turner Operator Name Role Phone Natalee Matt DO Primary Care Provider + [phone] Reason for Visit * Reason Comments Med Refill Encounter Details Date Type Department Care Team ([facility] st Contact Info) Description 09/16/2024 Refill [facility] MEDICINE 230 [place], [place] [phone] Natalee Matt DO 230 [place], [place] [phone] Chronic neck and back pain Social History [...] documented as of this encounter Care Teams Collar Turner Operator Relationship Specialty Start Date End Date Natalee Matt DO [address] [place] [address] PCP - General Family Medicine 07/13/11 [facility] 11/16/15 documented as of this encounter
--- OUTSIDE RECORDS SUMMARY | 2024-11-04 19:53 | XMS_ITS | Encounter Summary ---
Author Organization [employer] Address [address] [facility] 7t [place] [address] Care Team Providers Care Curatorial Specialist Name Role Phone Natalee Matt DO Primary Care Provider + [phone] Reason for Visit * Reason Comments Med Change Request Encounter Details Date Type Department Care Team ([facility] Contact Info) Description 10/23/2024 Refill [facility] MEDICINE 230 [place], [place] [phone] Ely Peterson MD 230 [place], [place] [phone] Social History Tobacco Use Types Packs/Day Years [...] documented as of this encounter Care Teams Curatorial Specialist Relationship Specialty Start Date End Date Natalee Matt DO [address] [place] [address] PCP - General Family Medicine 07/13/11 [facility] 11/16/15 documented as of this encounter
--- OUTSIDE RECORDS SUMMARY | 2024-11-04 19:53 | XMS_ITS | Encounter Summary ---
Author Organization [employer] Address [address] [facility] 7t [place] [address] Care Team Providers Care Facilities Coordinator Name Role Phone Natalee Matt DO Primary Care Provider + [phone] Reason for Visit * Reason Comments Med Refill Encounter Details Date Type Department Care Team ([facility] st Contact Info) Description 05/27/2022 Refill [facility] MEDICINE 230 [place] [address] [facility] 230 [place] [address] Social History Tobacco Use Types Packs/Day Years Used Date Smoking Tobacco: Former Cigarettes Passive Smoke Exposure: Never Smokeless Tobacco: Never Alcohol Use Standard Drinks/Week Comments Never 0 (1 standard drink = 0.6 oz pur e alcohol) PHQ-2 Answer Date Recorded Patient Health Questionnaire-2 Score 6 04/19/2022 Sex and Gender Information Value Date Recorded Sex Assigned at Male 12/20/2021 10:22 AM EDT Legal Sex Male 10:22 AM EDT Gender Identity Male 12/20/2021 10:22 AM EDT Sexual Orientation Straight 12/20/2021 10 :22 AM EDT COVID-19 Exposure Response Date Recorded In the last 10 days, have yo u been in contact with someone who was confirmed or suspected to have Coronavirus/COVID-19? No / Unsure 05/26/2022 11:34 AM EDT documented as of this encounter Plan of Treatment Not on file documented as of this encounter Visit Diagnoses Not on filedocumented in this encounter Additional Health Concerns Assessment Noted Time PHQ-9 Depression Total Score: 20 04/19/ 023 11:26 AM EST documented as of this encounter Care Teams Facilities Coordinator Relationship Specialty Start Date End Date Natalee Matt DO [address] [place] [address] PCP - General Family Medicine 07/13/11 [facility] 11/16/15 documented as of this encounter
--- OUTSIDE RECORDS SUMMARY | 2024-11-04 19:53 | XMS_ITS | Encounter Summary ---
Author Organization [employer] Address 75 [facility] 7t [place] [address] Care Team Providers Care Commercial Pest Control Representative Name Role Phone Natalee Matt DO Primary Care Provider +[phone] Encounter Details Date Type Department Care Team (Late st Contact Info) Description 03/11/2022 Orders Only [facility] [address] [place] [address] Natalee Deutsch LPN Social History Tobacco Use Types Packs/Day [...] on filedocumented in this encounter Care Teams Commercial Pest Control Representative Relationship Specialty Start Date End Date Natalee Matt DO [address] [place] [address] PCP - General Family Medicine 07/13/11 [facility] 11/16/15 documented as of this encounter
--- OUTSIDE RECORDS SUMMARY | 2024-11-04 19:53 | XMS_ITS | Encounter Summary ---
Author Organization [employer] Address [address] [facility] 7t [place] [address] Care Team Providers Care Health Consultant Name Role Phone Natalee Matt DO Primary Care Provider + [phone] Reason for Visit * Reason Onset Date Comments Med Refill 06/06/2023 Encounter Details Date Type Department Care Team ([facility] st Contact Info) Description 06/06/2023 Telephone [facility] MEDICINE 230 [place], [place] [phone] Natalee Matt DO 230 [place], [place] [phone] Med Refill Social History Tobacco Use Types [...] Telephone Encounter - Natalee Deutsch LPN - 06/06/2023 10:27 AM EDT Medication was sent to [facility] #[id number] on 06/01/23. * Telephone Encounter - Catalina Vences - 06/06/2023 10:11 AM EDT TC from pt requesting medication refill. Medications needing refill : cholecalciferol (Vitamin D-3) 50 MCG (1999 UT) tablet To be sent to: [facility]/pharmacy #[id number] - [address] documented in this encounter Plan of Treatment Not on file documented as of this encounter Visit Diagnoses Not on filedocumented in this encounter Additional Health Concerns Assessment Noted Time PHQ-9 Depression Total Score: 0 09/10/19 23 9:07 AM EDT documented as of this encounter Care Teams Health Consultant Relationship Specialty Start Date End Date Natalee Matt DO [address] [place] [address] PCP - General Family Medicine 07/13/11 [facility] 11/16/15 documented as of this encounter
--- OUTSIDE RECORDS SUMMARY | 2024-11-04 19:53 | XMS_ITS | Clinical Summary ---
Author Organization [address] [facility] Address [address] [place] [address] Phone Care Team Providers Care Staff Editor Name Role Phone Natalee Matt DO Primary Care Provider [phone] Social History Tobacco Use Types Packs/Day Years [...] 02/17/1979 Zoster Vaccines (1 of 2) 02/17/2010 Cholesterol Screening (Lipid Panel) 01/26/2024 Colorectal Cancer Screening: Colonoscopy 01/26/2024 HIV Screening 01/26/2024 Hepatitis C Screening 01/26/2024 Medicare Annual Wellness Visit 01/26/2024 Social Influencers of Health Screening 01/26/2024 Depression Screening 02/21/2024 COVID-19 Vaccine (1 - 2023-2 5 season) 2024 Influenza Vaccine (#1) 2024 RSV Immunization Adult [...] patient's age to complete this topic [place] [address] [place] [address] MEDICARE Member Subscriber Plan / Payer (Ef fective 2024-Present) Name:Dutch Royal Relation to Subscriber:Self Name:Dutch Royal Payer ID:[id number] Group ID:Not on file Type:Not on file Address: [place] [address] [place] [id number] Care Teams Staff Editor Relationship Specialty Start Date End Date Natalee Matt DO [address] [place] [address] PCP - General Family Medicine 01/26/24
--- OUTSIDE RECORDS SUMMARY | 2024-11-04 19:53 | XMS_ITS | Encounter Summary ---
Author Organization [employer] Address [address] [facility] 7t [place] [address] Care Team Providers Care Production Shift Supervisor Name Role Phone Natalee Matt DO Primary Care Provider + [phone] Reason for Visit * Reason Onset Date Comments Call Back Request 04/11/2023 Encounter Details Date Type Department Care Team ([facility] st Contact Info) Description 04/11/2023 Telephone [facility] MEDICINE 230 [place], [place] [phone] Natalee Matt DO [address] [place], [place] [phone] Call Back Request Social History Tobacco Use Types Packs/Day Years [...] encounter Miscellaneous Notes * Telephone Encounter - Sadaf Grider RN - 04/11/2023 12:09 PM EST Return T/C to [place] for below message. Kulwinder states pt. Was at ED for Periorbital Cellulitis. Also States on Monday pt. had 3 cups of coffee with sugar, shrimp, and a cup of soda. Pt sugar levelscame out to be 422 but Pt is asymptomatic. Yesterday BS was 202, today morning was 159, pt. Is onlyon metformin 500, also want to discuss Blood sugar result. Pt. Schedule for ED follow up on 04/13/2023. Kulwinder states she is going to inform pt. Tomorrow. MEIR winterjose angel is in pt.s chat. * Telephone Encounter - Anu Lyons - 04/11/2023 9:39 AM EST Tc [place] [facility] requesting to speak with nurse in regards to pt diabetes. States on Monday pt had 3 cups of coffee with sugar, shrimp, and a cup of soda. Pt sugar levels came out to be 422 but Pt is asymptomatic Please contact kulwinder at [phone] documented in this encounter Plan of Treatment Not on file documented as of this encounter Visit Diagnoses Not on filedocumented in this encounter Additional Health Concerns Assessment Noted Time PHQ-9 Depression Total Score: 0 09/10/19 9:07 AM EDT documented as of this encounter Care Teams Production Shift Supervisor Relationship Specialty Start Date End Date Kristyn Mattfer, DO [address] [place] [address] PCP - General Family Medicine 07/13/11 [facility] 11/16/15 documented as of this encounter
--- OUTSIDE RECORDS SUMMARY | 2024-11-04 19:53 | XMS_ITS | Encounter Summary ---
Author Organization [employer] Address 75 [facility] 7t [place] [address] Care Team Providers Care Supersonic Engineer Name Role Phone Natalee Matt DO Primary Care Provider + [phone] Reason for Visit * Reason Comments Med Change Request Encounter Details Date Type Department Care Team ([facility] Contact Info) Description 03/28/[address] [facility] MEDICINE 230 [place], [place] [phone] Natalee Matt DO 230 [place], [place] [phone] Social History Tobacco Use Types Packs/Day Years [...] documented as of this encounter Care Teams Supersonic Engineer Relationship Specialty Start Date End Date Natalee Matt DO [address] [place] [address] PCP - General Family Medicine 07/13/11 [facility] 11/16/15 documented as of this encounter
--- OUTSIDE RECORDS SUMMARY | 2024-11-04 19:53 | XMS_ITS | Encounter Summary ---
Author Organization [employer] Address 75 [facility] 7t [place] [address] Care Team Providers Care Building Architect Name Role Phone Natalee Matt DO Primary Care Provider + [phone] Reason for Visit * Reason Onset Date Comments ER Follow-up 04/11/2023 Encounter Details Date Type Department Care Team ([facility] st Contact Info) Description 04/11/2023 Telephone [facility] MEDICINE 230 [place], [place] [phone] Natalee Matt DO 230 [place], [place] [phone] ER Follow-up Social History Tobacco Use Types Packs/Day Years [...] Encounter - Sadaf Grider RN - 04/11/2023 10:29 AM EST T/C x 1 am to [id number] through [place] id - [id number] for status check for current ED visit, No answer, Not able to LVM, phone number was belongs to another person. T/C to [id number] through [facility] id - [id number], no answer. Phone number is not active. * Telephone Encounter - Anu Lyons - 04/11/2023 9:37 AM EST Patient calling to report ED visit on : Date: 04/09 [place] [facility] [place] Seen for: periorbital cellulitis Patient advised will forward to team nurse for follow up Please contact pt at [phone] (Japanese) documented in this encounter Plan of Treatment Not on file documented as of this encounter Visit Diagnoses Not on filedocumented in this encounter Additional Health Concerns Assessment Noted Time PHQ-9 Depression Total Score: 0 09/10/19 9:07 AM EDT documented as of this encounter Care Teams Building Architect Relationship Specialty Start Date End Date Natalee Matt DO [address] [place] [address] PCP - General Family Medicine 07/13/11 [facility] 11/16/15 documented as of this encounter
--- OUTSIDE RECORDS SUMMARY | 2024-11-04 19:53 | XMS_ITS | Encounter Summary ---
Author Organization [employer] Address 75 [facility] 7t [place] [address] Care Team Providers Care Quality Control Coordinator Name Role Phone Natalee Matt DO Primary Care Provider + [phone] Reason for Visit * Reason Onset Date Comments FYI 06/14/2023 Encounter Details Date Type Department Care Team ([facility] st Contact Info) Description 06/14/2023 Telephone [facility] MEDICINE 230 [place], [place] [phone] Natalee Matt DO [address] [place], [place] [phone] FYI Social History Tobacco Use Types Packs/Day Years [...] * Telephone Encounter - Ascencion Teresa - 06/14/2023 9:40 AM EDT Tc from [facility] calling to report elevated BP before medication administration 132/99 with no cardiac symptoms documented in this encounter Plan of Treatment Not on file documented as of this encounter Visit Diagnoses Not on filedocumented in this encounter Additional Health Concerns Assessment Noted Time PHQ-9 Depression Total Score: 0 09/10/19 9:07 AM EDT documented as of this encounter Care Teams Quality Control Coordinator Relationship Specialty Start Date End Date Natalee Matt DO [address] [place] [address] PCP - General Family Medicine 07/13/11 [facility] 11/16/15 documented as of this encounter
--- OUTSIDE RECORDS SUMMARY | 2024-11-04 19:53 | XMS_ITS | Encounter Summary ---
Author Organization [employer] Address 75 [facility] 7t [place] [address] Care Team Providers Care Semiconductor Processing Technician Name Role Phone Natalee Matt DO Primary Care Provider + [phone] Encounter Details Date Type Department Care Team (Latest Contact Info) Description 06/26/2020 Abstract [facility] CONVERSIONS Dental, Provider, DDS Social History Tobacco Use Types Packs/Day Years [...] on filedocumented in this encounter Care Teams Semiconductor Processing Technician Relationship Specialty Start Date End Date Natalee Matt DO [address] [place] [address] PCP - General Family Medicine 07/13/11 [facility] 11/16/15 documented as of this encounter
--- OUTSIDE RECORDS SUMMARY | 2024-11-04 19:53 | XMS_ITS | Encounter Summary ---
Author Organization [employer] Address [address] [facility] 7[address] [place] [address] Care Team Providers Care Rehabilitation Liaison Name Role Phone Natalee Matt DO Primary Care Provider + [phone] Reason for Visit * Reason Onset Date Comments Med Refill 03/28/2022 Encounter Details Date Type Department Care Team ([facility] st Contact Info) Description 03/28/2022 Telephone [facility] MEDICINE [address] [place] [address] Natalee Matt DO [address] [place] [address] Med Refill Social History Tobacco Use Types Packs/Day Years Used Date Smoking Tobacco: Never Assessed Sex and Gender Information Value Date Recorded Sex Assigned at Male 12/20/2021 10:22 AM EDT Legal Sex Male 10:22 AM EDT Gender Identity Male 12/20/2021 10:22 AM EDT Sexual Orientation Straight 12/20/2021 10 :22 AM EDT documented as of this encounter Miscellaneous Notes * Telephone Encounter - Jerrell Duque - 03/28/2022 10:11 AM EST Tc from [place] Nurse for pt requesting med refill on hydrOXYzine HCl (Atarax) 25 MG tablet Please sent to [facility]/pharmacy #[id number] - [place] - [address] [place] [address] documented in this encounter Plan of Treatment Not on file documented as of this encounter Visit Diagnoses Not on filedocumented in this encounter Care Teams Rehabilitation Liaison Relationship Specialty Start Date End Date Natalee Matt DO [address] [place] [address] PCP - General Family Medicine 07/13/11 [facility] 11/16/15 documented as of this encounter
--- OUTSIDE RECORDS SUMMARY | 2024-11-04 19:53 | XMS_ITS | Encounter Summary ---
Author Organization [employer] Address [address] [facility] 7t [place] [address] Care Team Providers Care Shipping Track Supervisor Name Role Phone Natalee Matt DO Primary Care Provider + [phone] Reason for Visit * Reason Onset Date Comments Medication Question 11/25/2022 Concern Patient 11/25/2022 Encounter Details Date Type Department Care Team ([facility] st Contact Info) Description 11/25/2022 Telephone [facility] MEDICINE 230 [place] [address] Natalee Matt DO [address] [place], [place] [phone] Medication Question; Concern Patient Social History Tobacco Use Types Packs/Day Years Used Date Smoking Tobacco: Former Cigarettes Passive Smoke Exposure: Never Smokeless Tobacco: Never Alcohol Use Standard Drinks/Week Comments Never 0 (1 standard drink = 0.6 oz pur e alcohol) Depression Answer Date Recorded Patient Health Questionnaire-9 Score 0 09/09/2022 Depression Answer Date Recorded Patient Health Questionnaire-2 Score 0 09/09/2022 Sex and Gender Information Value Date Recorded Sex Assigned at Male 12/20/2021 10:22 AM EDT Legal Sex Male 10:22 AM EDT Gender Identity Male 12/20/2021 10:22 AM EDT Sexual Orientation Straight 12/20/2021 10 :22 AM EDT documented as of this encounter Miscellaneous Notes * Telephone Encounter - Viktoria Valdivia RN - 11/25/2022 10:52 AM EDT TC returned to [facility] [phone] who reports she is concerned the pt is medication seeking. [place] reports she went to see the pt and his significant other reported to [facility] ([facility]NA) that the pt went to [facility] yesterday and received a script for tramadol which he p/u at the pharmacy himselfand has possession of (pt's medications are to be in a lock box per VNA d/t medication misuse past hx). Significant other informed [facility] but asked her to not tell him. [facility] reports she informed the significant other that she would call the clinic in order to obtain information regarding yesterdays visit and then she can ask the pt for the medication without him knowing his significant other r eported it to the VNA. Pt's VNA reports she will ask the pt for his tramadol medication tomorrow and place it in the lock box. Per VNA, pt comes to appt's and reports severe pain and inability to walk however he is out and about driving, walking his dog, going to his program, etc . VNA reports he NEVER uses his cane however when he comes to [facility] he will use his cane. VNA also confirms the pt has gone to ortho for evaluation and they have informed him nothing is wrong with him and it is psychological. VNA [facility] reports his significant other attended the ortho appt and confirmed this is what they stated. [facility] would like PCP to be aware for future appt's as DANA believes pt is seeking medic ation ([facility] reports pt ALWAYS reports his pain is a 2 or 3). RN informed [facility], RN would send message to PCP as FYI. Noe to f/u PRN. * Telephone Encounter - Jerrell Rodriguez Dunia - 11/25/2022 8:09 AM EDT Tc from [facility] pt visiting nurse requesting a call in regards to pt. [facility] states that pt significant other stated to her that he did not want me to tell you or inform you but he was recently atthe urgent care at the [facility], for supposedly for some pain on his leg and was prescribe tramadol but he didn't have any pain all day until he got into [facility]. [facility] is concern due to pt already being in so many medications and does not know if it was a way for pt to obtain more medications. Please contact [facility] at [phone] [facility] states she has a meeting 11:00 to 12:30 pm to please call afterwards. documented in this encounter Plan of Treatment Not on file documented as of this encounter Visit Diagnoses Not on filedocumented in this encounter Additional Health Concerns Assessment Noted Time PHQ-9 Depression Total Score: 0 09/10/19 9:07 AM EDT documented as of this encounter Care Teams Shipping Track Supervisor Relationship Specialty Start Date End Date Natalee Matt DO [address] [place] [address] PCP - General Family Medicine 07/13/11 [facility] 11/16/15 documented as of this encounter
--- OUTSIDE RECORDS SUMMARY | 2024-11-04 19:53 | XMS_ITS | Clinical Summary ---
Author Organization [employer] Address [address] [place] [address] Care Team Providers Care Computed Tomography Technician Name Role Phone Natalee Matt DO Primary Care Provider [phone] Allergies Active Allergy Reactions Criticality Noted Date Comments Aspirin 10/21/2011 Benztropine 02/22/2013 Haloperidol 02/07/2013 Penicillins 10/13/2023 Medications * This document contains information received from the source organization and may not represent a complete record from that organization. eszopiclone (Lunesta) 3 MG tablet TOME JHONY TABLETA TODOS LOS D AL ACOSTARSE CUANDO SEA NECESARIO PARA DORMIR 023 Active fluPHENAZine (Prolixin) 1 MG tablet TOME JHONY TABLETA DOS VECES AL D A 023 Active Combivent Respimat 20-100 MCG/ACT inhaler INHALE 1 PUFF BY MOUTH 4 TIMES EVERY DAY MAY TAKE ADDITIONAL PUFFS MAX 6 PUFFS IN 24HRS 023 Active lurasidone (Latuda) 80 MG tablet TOME JHONY TABLETA POR V A ORAL CADA NOCHE WITH A MEAL 023 Active nystatin (Mycostatin) cream APLIQUE AL GARLAND AFECTADA DOS VECES AL D A 023 Active perphenazine 4 MG tablet TOME JHONY TABLETA TODOS LOS D AL ACOSTARSE 022 Active Alcohol Swabs (Alcohol Prep) pads Check BS once a day 100 each 11 023 Active OneTouch Delica Lancets 33G misc USE TO CHECK BLOOD SUGAR ONCE A DAY 100 each 023 Active Blood Glucose Monitoring Suppl (ONE TOUCH ULTRA 2) w/Device kit USE TO CHECK BLOOD SUGAR ONCE A DAY 1 kit 023 Active fluticasone (Flonase) 50 MCG/ACT nasal spray SPRAY 2 SPRAYS INTO EACH NOSTRIL TODOS LOS HERNANDEZ 48 mL 1 023 Active fluPHENAZine (Prolixin) 2.5 MG tablet TOME JHONY TABLETA DOS VECES AL D A 023 Active lidocaine (Xylocaine) 5 % ointmentIndicat ions:Closed traumatic nondisplaced fracture of one rib of left side, initial encounter Apply topically if needed in the morning, at noon, and at bedtime for mild pain or moderate pain. 30 g 024 2024 Active omeprazole (PriLOSEC) [address] capsule TAKE 1 CAPSULE BY MOUTH TWICE A DAY BEFORE A MEAL 180 capsule 3 024 Active metFORMIN XR (Glucophage-XR) 500 MG 24 hr tablet TOME JHONY TABLETA TODOS LOS HERNANDEZ CON EL DESAYUNO 90 tablet 3 025 Active atorvastatin (Lipitor) 40 MG tablet TOME 1 TABLETA POR VIA ORAL TODOS LOS HERNANDEZ EN LA MANANA 90 tablet 3 025 Active hydroCHLOROthia zide (HYDRODiuril) 25 MG tablet TOME 1 TABLETA POR VIA ORAL TODOS LOS HERNANDEZ 90 tablet 3 025 Active cholecalciferol (Vitamin D-3) 50 MCG (2000 UT) tablet TAKE 1 TABLET BY MOUTH EVERY DAY 90 tablet 3 025 Active Senna-Time 8.6 MG tablet TAKE 1 TABLET (8.6 MG) BY MOUTH ONCE PER DAY. 30 tablet 11 025 Active glucose blood (OneTouch Ultra) test stripIndication s:Type 2 diabetes mellitus without complication, without long-term current use of insulin ([facility]) USE TO TEST BLOOD SUGAR ONCE A DAY 100 strip 11 025 Active polycarbophil (FiberCon) 625 MG tablet Take 1 tablet (625 mg) by mouth Once per day. 90 tablet 3 025 2025 Active Dulaglutide 0.75 MG/0.5ML solution auto-injectorIn dications:Type 2 diabetes mellitus without complication, without long-term current use of insulin (CMS/HCC) Inject 0.75 mg under the skin 1 (one) time per week. INJECT ONE PEN (= 0.75 MG) SUBCUTANEOUSLY ONCE A WEEK 2 mL 3 025 Active fluticasone furoate (Arnuity Ellipta) 100 MCG/ACT inhaler INHALE 1 PUFF BY MOUTH ONCE DAILY 30 each 5 025 Active DULoxetine (Cymbalta) [address] capsuleIndicati ons:Total body pain TAKE 2 CAPSULES BY MOUTH EVERY DAY 180 capsule 1 025 Active baclofen (Lioresal) 10 MG tablet TAKE 1 TABLET BY MOUTH IN THE MORNING, AT NOON, AND AT BEDTIME IF NEEDED FOR MUSCLE SPASMS. 90 tablet 1 025 Active acetaminophen (Tylenol 8 Hour) 650 MG ER tabletIndicatio ns:Chronic neck and back pain TAKE 1 TABLET BY MOUTH EVERY 6 HOURS NEEDED FOR PAIN AND/OR FEVER. DO NOT CRUSH, CHEW OR SPLIT. 90 tablet 2 025 Active Umeclidinium Haigler (Incruse Ellipta) 62.5 MCG/ACT aerosol powderIndicatio ns:Chronic obstructive pulmonary disease, unspecified COPD type (CMS/HCC) Inhale 1 Act (62.5 mcg) Once per day. 30 each 11 025 Active polyethylene glycol, PEG, 3350 (MiraLax) 17 GM/SCOOP powder Take 17 g by mouth if needed (Constipation). 510 g 2 025 Active Diclofenac Sodium 1 % gel Apply 2 g topically if needed in the morning, at noon, in the evening, and at bedtime (pain). 150 g 3 025 Active albuterol (2.5 MG/3ML) 0.083% nebulizer solutionIndicat ions:Chronic obstructive pulmonary disease, unspecified COPD type (CMS/HCC) TAKE 3 ML BY NEBULIZATION ROUTE EVERY 6 HOURS NEEDED FOR WHEEZING 90 mL 025 Active gabapentin (Neurontin) 100 MG capsuleIndicati ons:Chronic neck and back pain TOME 1 CAPSULA POR VIA ORAL NANCY VECES AL KERRY 90 capsule 025 Active tamsulosin (Flomax) 0.4 MG 24 hr capsuleIndicati ons:Benign prostatic hyperplasia, unspecified whether lower urinary tract symptoms present TAKE 1 CAPSULE BY EVERY DAY 90 capsule 1 025 Active cetirizine (ZyrTEC) 10 MG tablet TAKE 1 TABLET BY MOUTH EVERY DAY 90 tablet 1 025 Active hydrOXYzine HCl (Atarax) 25 MG tabletIndicatio ns:Pruritus TAKE 1 TABLET BY MOUTH TWICE A DAY IF NEEDED FOR ITCHING 180 tablet 1 025 Active Spiriva HandiHaler 18 MCG inhalation capsuleIndicati ons:Chronic obstructive pulmonary disease, unspecified COPD type (CMS/HCC) COLOQUE 1 CAPSULA (18 MCG) INTO INHALER AND INHALE EN LA MANANA 30 capsule 11 024 2024 Discontinued(R eorder (will not trigger notification to Pharmacy)) polyethylene glycol, PEG, 3350 (MiraLax) 17 GM/SCOOP powder Take 17 g by mouth if needed (Constipation). 510 g 2 024 2024 Discontinued(R eorder (will not trigger notification to Pharmacy)) acetaminophen (Tylenol 8 Hour) 650 MG ER tabletIndicatio ns:Chronic neck and back pain TAKE 1 TABLET BY MOUTH EVERY 6 HOURS NEEDED FOR PAIN AND/OR FEVER. DO NOT CRUSH, CHEW OR SPLIT. 90 tablet 2 025 2024 Discontinued(M ed list cleanup (will not trigger notification to Pharmacy)) tamsulosin (Flomax) 0.4 MG 24 hr capsuleIndicati ons:Benign prostatic hyperplasia, unspecified whether lower urinary tract symptoms present TAKE 1 CAPSULE BY MOUTH EVERY DAY 90 capsule 1 025 2024 Discontinued cetirizine (ZyrTEC) 10 MG tablet TAKE 1 TABLET BY MOUTH EVERY DAY 90 tablet 1 025 2024 Discontinued hydrOXYzine HCl (Atarax) 25 MG tabletIndicatio ns:Pruritus TAKE 1 TABLET BY MOUTH TWICE A DAY IF NEEDED FOR ITCHING 180 tablet 1 025 2024 Discontinued acetaminophen (Tylenol 8 Hour) 650 MG ER tabletIndicatio ns:Chronic neck and back pain TAKE 1 TABLET BY MOUTH EVERY 6 HOURS NEEDED FOR PAIN AND/OR FEVER. DO NOT CRUSH, CHEW OR SPLIT. 90 tablet 2 025 2024 Discontinued(R eorder (will not trigger notification to Pharmacy)) gabapentin (Neurontin) 100 MG capsuleIndicati ons:Chronic neck and back pain TOME 1 CAPSULA POR VIA ORAL NANCY VECES AL KERRY 90 capsule 025 2024 Discontinued tiotropium (Spiriva HandiHaler) 18 MCG inhalation capsuleIndicati ons:Chronic obstructive pulmonary disease, unspecified COPD type (CMS/HCC) Place 1 capsule (18 mcg) into inhaler and inhale in the morning. 30 capsule 11 025 2024 Discontinued albuterol (2.5 MG/3ML) 0.083% nebulizer solutionIndicat ions:Chronic obstructive pulmonary disease, unspecified COPD type (CMS/HCC) Take 3 mL (2.5 mg) by nebulization every 6 (six) hours if needed for wheezing. 75 mL 025 2024 Discontinued(R eorder (will not trigger notification to Pharmacy)) Active Problems Problem Noted Date Diagnosed Date Bone spicules of jaw 05/14/2024 Traumatic closed nondisplace d fracture of one rib of left side 01/09/2024 Assessment & Plan (01/09/2024 5:59 PM EST): Ulceration on left upper gum. - Prescribed lidocaine (Xylocaine) 5 % ointment 01/09/24 - Recommended cutting out spicy, acidic, or overly hot foods until Ulceration heals 01/09/24 - Next visit to Dentist will be in January - ER precautions discussed. - Seek medical attention for worsening symptoms. Other constipation 06/15/2023 Preseptal cellulitis of left eye 04/13/2023 Assessment & Plan (04/13/2023 12:22 PM EST): Seems to be improving, will refer to opthalmology for further evaluation due to persistent visual abnormalities Dental caries 11/03/2022 Periodontal disease 11/03/2022 Dental calculus 06/24/2022 Gingival recession, generalized 06/24/2022 Type 2 diabetes mellitus 05/26/2022 Assessment & Plan (06/15/2023 3:13 PM EDT): A1c at goal -cont metformin daily -cont lipitor nightly -cont regular BS monitoring daily -s/p optho eval APR 2023 with [facility] -foot exam next visit* Pulmonary nodule 04/19/2022 Assessment & Plan (06/15/2023 3:15 PM EDT): -CT chest with two 2mm JORDAN nodules and no LLL nodule JAN 2019 ->will get copy of results as still not in chart KRISTY (obstructive sleep apnea) 04/19/2022 Assessment & Plan (06/15/2023 3:15 PM EDT): He refuses CPAP -f/u with sleep medicine prn Essential hypertension 04/19/2022 Assessment & Plan (06/15/2023 3:14 PM EDT): BP controlled -cont HCTZ daily -cont BP monitoring with VNA -Cr/GFR and urine microalbumin nml APR 2022->repeat prior to next visit -optho as above History of tobacco use 04/19/2022 Assessment & Plan (06/15/2023 3:18 PM EDT): >20 pk-yr hx, quit about 7 y/a -re-referred to lung CA screening program BPH without obstruction/lower urinary tract symp toms 04/19/2022 Assessment & Plan (06/15/2023 3:18 PM EDT): -PSA nml APR 2021 -cont flomax daily Healthcare maintenance 04/19/2022 Assessment & Plan (06/15/2023 3:27 PM EDT): -s/p flu vaccine OCT 2022 -COVID vaccine DEC 2022 -encouraged RSV vaccine -s/p Tdap SEP 2011 -s/p Td MAR 2022 -s/p pneumovax SEP 2011 -s/p PCV20 MAY 2022 -encouraged Shingrix vaccine -Hep A immune -s/p Hep B series 2012 -colonoscopy with tubular adenoma OCT 2022 -STI/HIV screen negative OCT 2018 History of hepatitis C 04/19/2022 History of substance use 04/19/2022 Chronic neck and back pain 04/18/2022 Assessment & Plan (06/15/2023 3:17 PM EDT): Sx unchanged -MRI L-spine with epidermal lipomatosis, facet arthropathy, and b/l foraminal narrowing JUL 2022 -C-spine XR with degenerative changes and bony osteophytes SEP 2020 -L-spine XR with mild multilevel DDD OCT 2020 -cont gabapentin TID -encouraged standing doses of tylenol -cont baclofen to help with mm spasm -cont lidocaine ointment prn -cont tramadol BID severe pain -advised schedule eval with [facility] PM, contact info given -f/u with [facility] after PM eval -advised contact C if sx change or worsen Osteoarthritis 04/18/2022 Anemia 11/06/2015 Chronic obstructive pulmonary disease 11/06/2015 Assessment & Plan (06/15/2023 3:15 PM EDT): -cont fluticasone daily -cont spiriva daily -cont albuterol prn Chronic gastroesophageal reflux disease 11/06/19 16 History of alcohol abuse 11/06/2015 Hyperlipidemia 11/06/2015 Assessment & Plan (06/15/2023 3:14 PM EDT): LDL improved APR 2022 -cont lipitor nightly -repeat lipids prior to next visit Schizophrenia 11/06/2015 Assessment & Plan (06/15/2023 3:14 PM EDT): -he denies any current SI/HI -he has number for crisis and contracts for safety -cont current med regimen as per psychiatry -f/u with psychiatrist as scheduled Resolved Problems Problem Noted Date Diagnosed Date Resolved Date Blurred vision, left eye 04/13/2023 Right hip pain 11/25/2022 01/18/2023 Assessment & Plan (11/25/2022 7:53 AM EDT): R hip pain for 1 year that pt reports has been worsening. -MRI lumbar 07/2022: 1. Epidural lipomatosis in the lumbar spinal canal resulting in moderate thecal sac distortion at the L3-L4 level and severe thecal sac compression at the L4-L5 level. No central canal stenosis. 2. Shallow right foraminal disc protrusion at the L3-L4 level contacting the right L3 nerve root. 3. Moderate bilateral foraminal narrowing at the L4-L5 level due to bulging disc and osseous spurring. Focal right posterolateral annular tear/tear. 4. Facet arthropathy at the L5-S1 level contacting the exiting left L5 nerve root with moderate left foraminal encroachment. 04/2022: CBC and chem normal. Pain doesn't seem to be radiated from his back, for which he is already f w ortho, and pt states he was recently seen in 10/2022. Per pt he was told he doesn't need any specific Tx??? For his hip pain will rule out OA, and also in the DDx possibly trochanteric bursitis. -Referred today for R hip XR -Continue Tylenol PRN, not able to use NSAIDs w Hx of ASA allergy. -cont gabapentin TID -cont lidocaine ointment prn -Prescribed today 2 wk of tramadol prn for severe pain --- confirmed w [facility] and his pharmacy that he's not getting any consistent opioid refills. -Advise to continue to f up w orthopedic -Return to clinic if Sx don't improve and f up w PCP. Gingival bleeding 06/24/2022 09/09/2022 Polyarthralgia 04/19/2022 01/18/2023 Cobalamin deficiency 11/06/2015 023 Encounters * This document contains information received from the source organization and may not represent a complete record from that organization. Date Type Department Care Team Description 11/03/2024 Refill [facility] [address] [place] [address] Natalee Matt, Benign prostatic hyperplasia, unspecified whether lower urinary tract symptoms present; Pruritus 11/01/2024 Telephone [facility] [address] [place] [address] Natalee Matt DO Call back request 10/28/2024 Refill [facility] [address] [place] [address] Jessica Mcnally MD Chronic neck and back pain 10/23/2024 Refill [facility] [address] [place] [address] Ely Peterson MD 10/18/2024 Telephone [facility] [address] [place] [address] Natalee Matt DO Durable Medical Equipment 10/18/2024 Refill [facility] [address] [place] [address] Natalee Matt DO Chronic obstructive pulmonary disease, unspecified COPD type (CMS/HCC) 10/15/2024 Refill [facility] [address] [place] [address] Natalee Matt DO Chronic obstructive pulmonary disease, unspecified COPD type (CMS/HCC) 10/14/2024 11:15 AM EDT Office Visit [facility] [address] [place] [address] Natalee Matt DO Type 2 diabetes mellitus without complication, without long-term current use of insulin ([facility]) (Primary Dx); Essential hypertension; Other hyperlipidemia; Schizophrenia, unspecified type (CMS/HCC); KRISTY (obstructive sleep apnea); Chronic obstructive pulmonary disease, unspecified COPD type (CMS/HCC); Chronic neck and back pain; Polyarthralgia; BPH without obstruction/lower urinary tract symptoms; Urinary incontinence, unspecified type; Chronic constipation; History of tobacco use; Painful urination; Pain of right hip; Healthcare maintenance 10/14/2024 Refill [facility] [address] [place] [address] Natalee Matt DO Chronic obstructive pulmonary disease, unspecified COPD type (CMS/HCC) 10/14/2024 Travel 10/11/2024 Telephone [facility] [address] [place] [address] Natalee Matt DO Chart Prep 10/10/2024 Telephone [facility] [address] [place] [address] Natalee Matt DO fyi 10/09/2024 Refill [facility] [address] [place] [address] Natalee Matt, Chronic neck and back pain 10/07/2024 Patient Outreach [facility] [address] [place] [address] Natalee Matt, Pre-visit Planning (SDOH unable to reach LVM ) 10/04/2024 Telephone [facility] [address] [place] [address] Natalee Matt, Durable Medical Equipment ([facility] D[facility] Request: Shower Mat) 09/30/2024 Telephone [facility] [address] [place] [address] Natalee Matt, DO Med Refill 09/26/2024 Refill [facility] [address] [place] [address] Natalee Matt, Chronic neck and back pain 09/21/2024 Refill [facility] [address] [place] [address] Natalee Matt, 09/19/2024 Telephone [facility] [address] [place] [address] Natalee Matt, DO Med Refill 09/19/2024 Refill [facility] [address] [place] [address] Natalee Matt, DO Total body pain 09/18/2024 Telephone [facility] [address] [place] [address] Natalee Matt, DO Med Refill 09/16/2024 Refill [facility] [address] [place] [address] Natalee Matt, Chronic neck and back pain 09/11/2024 Refill [facility] [address] [place] [address] Natalee Matt, 08/29/2024 Refill [facility] [address] [place] [address] Natalee Matt, 08/28/2024 Refill [facility] [address] [place] [address] Natalee Matt DO Chronic neck and back pain 08/18/2024 Refill [facility] [address] [facility] [place] [address] Natalee Matt DO from Last 3 Months Immunizations Immunization Administration Dates Next Due Hep B, adult 11/01/2012,06/27/2012,05/22/2012 Influenza Injectable Quadriv alant Preservative Free IIV4 MDCK 11/18/2021 Influenza injectable quadriv alent IIV4 with preservative 11/09/2017,12/08/2016,11/06/2015 Influenza injectable quadriv alent preservative free 11/02/2022,12/15/2020 Influenza, IIV3, injectable 11/16/2023 Influenza, Split (incl. natali fied surface antigen) 11/01/2012,10/21/2011 Moderna Covid-19 Vaccine 12+ 07/20/2021, 02/02/2021,07/01/2020,06/03 Moderna Covid-19 Vaccine 6+ Bivalent 04/04/2022 Pfizer Covid-19 Vaccine 12+ 01/18/2023 Pneumococcal Conjugate PCV 20 05/26/2022 Pneumococcal Polysaccharide PPSV23 10/21/2011 TD (adult), 2 Lf tetanus tox oid, preservative free, adsorbed 04/19/2022 Tdap 10/21/2011 Family History Medical History Relation Name Comments Prostate cancer Brother Stroke Brother Diabetes Father Prostate cancer Father Diabetes Mother Rectal cancer Mother Stroke Mother's Sister Colon cancer Sister Relation Name Status Comments Brother Father Mother Mother's Sister Sister Social History Tobacco Use Types Packs/Day Years Used Date Smoking Tobacco: Some Days Cigarettes Passive Smoke Exposure: Never Smokeless Tobacco: Never Tobacco Cessation:Ready to Q uit: Not Asked; Counseling Given: Not Answered Alcohol Use Standard Drinks/Week Comments Never 0 [...] Orientation Straight 12/20/2021 10 :22 AM EDT Last Filed Vital Signs Vital Sign Reading Time Taken Comments Blood Pressure 128/80 10/14/2024 11:39 AM EDT Pulse 75 10/14/2024 11:39 AM EDT Temperature 36.8 C (98.3 F) 10/14/2024 11:39 AM EDT Respiratory Rate 20 10/14/2024 11:39 AM EDT Oxygen Saturation 98% 10/14/2024 11:39 AM EDT Inhaled Oxygen Concentration - - Weight 103 kg (228 lb) 10/14/2024 11:39 AM EDT Height 167.6 cm (5' 6 ) 10/14/2024 11:39 AM EDT Body Mass Index 36.8 10/14/2024 11:39 AM EDT Plan of Treatment Health Maintenance Due Date Last Done Comments Anal Pap 1960 CT Colonography 1960 Dental X-Ray: Bitewings 1960 FIT DNA/Cologuard 1960 FIT 1960 FOBT 1960 Sigmoidoscopy 1960 Disability Screening 1960 Eye Exam 02/17/1970 Alcohol/Substance Use Screening 1972 Hepatitis A Vaccines (1 of 2 - Risk 2-dose series) 02/17/1979 Zoster Vaccines (1 of 2) 02/17/2010 RSV Patients and Patients Aged 60 years or older (1 - Risk 60-74 years 1-dose series) 2020 Dental Prophylaxis 12/26/2022 06/24/2022 Dental Oral Exam 03/13/2023 09/09/2022 Diabetes: Foot Exam 04/19/2023 04/19/2022 SDOH Screening 06/14/2024 06/15/2023 Influenza Vaccine (#1) 2024 , 11/02/2022, 11/18/2021, Additional history exists Depression Screening 11/19/2024 11/20/2023, 11/20/19 Diabetes: Hemoglobin A1C 05/04/2025 025, 10/14/2024, 11/20/2023, Additional history exists Dental X-Ray: Full Mouth 09/10/2025 09/09/2022 Tobacco Screening 10/14/2025 10/14/2024 Colonoscopy 11/02/2025 11/02/2022 Colorectal Cancer Screening 11/02/2025 Diabetes: Urine Protein Screening 11/04/2025 11/04/2024, 11/20/2023, 05/16/2022, Additional history exists Lipid Panel 11/04/2025 11/04/2024, 10/23, 05/16/2022, Additional history exists DTaP/Tdap/Td Vaccines (3 - Td or Tdap) 04/19/2032 04/19/2022, 10/21/2011 Hepatitis B Vaccines Completed 11/01/2012, 06/27/2012, 05/22/2012 Pneumococcal Vaccine: 50+ Years Completed 05/26/2022, 10/21/2011 COVID-19 Vaccine Completed 11/16/2023, , 04/04/2022, Additional history exists HIV Screening Completed 11/20/2023, 08/05/2019 HIB Vaccines Aged Out No longer eligi [...] patient's age to complete this topic Meningococcal Vaccine Aged Out No marvin pepper eligible based on patient's age to complete this topic RSV under 20 months Aged Out No longe r eligible based on patient's age to complete this topic Rotavirus Vaccines Aged Out No longer eligible based on patient's age to complete this topic Procedures Procedure Name Priority Date/Time Associated Diagnosis Comments C-REACTIVE PROTEIN Routine 11/04/2024 2: 34 PM EDT Type 2 diabetes mellitus without complication, without long-term current use of insulin (CMS/HCC) Essential hypertension Other hyperlipidemia Schizophrenia, unspecified type (CMS/HCC) KRISTY (obstructive sleep apnea) Chronic obstructive pulmonary disease, unspecified COPD type (CMS/HCC) Chronic neck and back pain Polyarthralgia BPH without obstruction/lower urinary tract symptoms Urinary incontinence, unspecified type Chronic constipation History of tobacco use Painful urination Pain of right hip Healthcare maintenance SED RATE BY MODIFIED WESTERGREN Routine 11/04/2024 2:34 PM EDT Type 2 diabetes mellitus without complication, without long-term current use of insulin (CMS/HCC) Essential hypertension Other hyperlipidemia Schizophrenia, unspecified type (CMS/HCC) KRISTY (obstructive sleep apnea) Chronic obstructive pulmonary disease, unspecified COPD type (CMS/HCC) Chronic neck and back pain Polyarthralgia BPH without obstruction/lower urinary tract symptoms Urinary incontinence, unspecified type Chronic constipation History of tobacco use Painful urination Pain of right hip Healthcare maintenance ALBUMIN, RANDOM URINE W/CREATININE Routine 11/04/2024 2:34 PM EDT Type 2 diabetes mellitus without complication, without long-term current use of insulin (CMS/HCC) Essential hypertension Other hyperlipidemia Schizophrenia, unspecified type (CMS/HCC) KRISTY (obstructive sleep apnea) Chronic obstructive pulmonary disease, unspecified COPD type (CMS/HCC) Chronic neck and back pain Polyarthralgia BPH without obstruction/lower urinary tract symptoms Urinary incontinence, unspecified type Chronic constipation History of tobacco use Painful urination Pain of right hip Healthcare maintenance CBC Routine 11/04/2024 2:34 PM EDT Type 2 diabetes mellitus without complication, without long-term current use of insulin (CMS/HCC) Essential hypertension Other hyperlipidemia Schizophrenia, unspecified type (CMS/HCC) KRISTY (obstructive sleep apnea) Chronic obstructive pulmonary disease, unspecified COPD type (CMS/HCC) Chronic neck and back pain Polyarthralgia BPH without obstruction/lower urinary tract symptoms Urinary incontinence, unspecified type Chronic constipation History of tobacco use Painful urination Pain of right hip Healthcare maintenance BASIC METABOLIC PANEL Routine 11/04/2024 2:34 PM EDT Type 2 diabetes mellitus without complication, without long-term current use of insulin (CMS/HCC) Essential hypertension Other hyperlipidemia Schizophrenia, unspecified type (CMS/HCC) KRISTY (obstructive sleep apnea) Chronic obstructive pulmonary disease, unspecified COPD type (CMS/HCC) Chronic neck and back pain Polyarthralgia BPH without obstruction/lower urinary tract symptoms Urinary incontinence, unspecified type Chronic constipation History of tobacco use Painful urination Pain of right hip Healthcare maintenance HEMOGLOBIN A1C Routine 11/04/2024 2:34 PM EDT Type 2 diabetes mellitus without complication, without long-term current use of insulin (CMS/HCC) Essential hypertension Other hyperlipidemia Schizophrenia, unspecified type (CMS/HCC) KRISTY (obstructive sleep apnea) Chronic obstructive pulmonary disease, unspecified COPD type (CMS/HCC) Chronic neck and back pain Polyarthralgia BPH without obstruction/lower urinary tract symptoms Urinary incontinence, unspecified type Chronic constipation History of tobacco use Painful urination Pain of right hip Healthcare maintenance HEPATIC FUNCTION PANEL Routine 11/04/2024 2:34 PM EDT Type 2 diabetes mellitus without complication, without long-term current use of insulin (CMS/HCC) Essential hypertension Other hyperlipidemia Schizophrenia, unspecified type (CMS/HCC) KRISTY (obstructive sleep apnea) Chronic obstructive pulmonary disease, unspecified COPD type (CMS/HCC) Chronic neck and back pain Polyarthralgia BPH without obstruction/lower urinary tract symptoms Urinary incontinence, unspecified type Chronic constipation History of tobacco use Painful urination Pain of right hip Healthcare maintenance TSH Routine 11/04/2024 2:34 PM EDT Type 2 diabetes mellitus without complication, without long-term current use of insulin (CMS/HCC) Essential hypertension Other hyperlipidemia Schizophrenia, unspecified type (CMS/HCC) KRISTY (obstructive sleep apnea) Chronic obstructive pulmonary disease, unspecified COPD type (CMS/HCC) Chronic neck and back pain Polyarthralgia BPH without obstruction/lower urinary tract symptoms Urinary incontinence, unspecified type Chronic constipation History of tobacco use Painful urination Pain of right hip Healthcare maintenance LIPID PANEL, STANDARD Routine 11/04/2024 2:34 PM EDT Type 2 diabetes mellitus without complication, without long-term current use of insulin (CMS/HCC) Essential hypertension Other hyperlipidemia Schizophrenia, unspecified type (CMS/HCC) KRISTY (obstructive sleep apnea) Chronic obstructive pulmonary disease, unspecified COPD type (CMS/HCC) Chronic neck and back pain Polyarthralgia BPH without obstruction/lower urinary tract symptoms Urinary incontinence, unspecified type Chronic constipation History of tobacco use Painful urination Pain of right hip Healthcare maintenance VITAMIN D,25-OH,TOTAL,IA Routine 11/04/2024 2:34 PM EDT Type 2 diabetes mellitus without complication, without long-term current use of insulin (CMS/HCC) Essential hypertension Other hyperlipidemia Schizophrenia, unspecified type (CMS/HCC) KRISTY (obstructive sleep apnea) Chronic obstructive pulmonary disease, unspecified COPD type (CMS/HCC) Chronic neck and back pain Polyarthralgia BPH without obstruction/lower urinary tract symptoms Urinary incontinence, unspecified type Chronic constipation History of tobacco use Painful urination Pain of right hip Healthcare maintenance T4, FREE Routine 11/04/2024 2:34 PM EDT Type 2 diabetes mellitus without complication, without long-term current use of insulin (CMS/HCC) Essential hypertension Other hyperlipidemia Schizophrenia, unspecified type (CMS/HCC) KRISTY (obstructive sleep apnea) Chronic obstructive pulmonary disease, unspecified COPD type (CMS/HCC) Chronic neck and back pain Polyarthralgia BPH without obstruction/lower urinary tract symptoms Urinary incontinence, unspecified type Chronic constipation History of tobacco use Painful urination Pain of right hip Healthcare maintenance POCT URINALYSIS DIPSTICK Routine 10/14/2024 12:30 PM EDT Urinary incontinence, unspecified type CULTURE, URINE, ROUTINE Routine 10/14/2024 12:20 PM EDT Urinary incontinence, unspecified type CHLAMYDIA/TRICHOMONAS /NEISSERIA GONORRHOEAE, PCR, URINE Routine 10/14/2024 12:17 PM EDT Urinary incontinence, unspecified type XR HIP 2 OR 3 VIEWS RIGHT Routine 10/14/2024 11:42 AM EDT Pain of right hip POCT GLYCATED HEMOGLOBIN, TOTAL Routine 10/14/2024 11:41 AM EDT Type 2 diabetes mellitus without complication, without long-term current use of insulin ([facility]) POCT GLUCOSE Routine 10/14/2024 11:40 AM EDT Type 2 diabetes mellitus without complication, without long-term current use of insulin ([facility]) HIV 1/2 ANTIGEN/ANTIBODY, FOURTH GENERATION W/RFL Routine 11/20/2023 11:28 AM EDT Healthcare maintenance HM COLONOSCOPY Routine 11/02/2022 PANORAMIC RADIOGRAPHIC IMAGE Routine 09/09/2022 2:00 PM EDT Encounter for dental examination Dental caries Sensitivity to the cold Gingival recession, generalized Bruxism PERIODIC ORAL EVALUATION - ESTABLISHED PATIENT Routine 09/09/2022 2:00 PM EDT Encounter for dental examination Dental caries Sensitivity to the cold Gingival recession, generalized Bruxism PROPHYLAXIS - ADULT Routine 06/24/2022 1 0:00 AM EDT Dental calculus Gingival bleeding from Last 3 Months or Most Recently Relevant to Health Maintenance Results * Vitamin D, 25-Hydroxy, Total, Immunoassay (11/04/2024 2:34 PM EDT) Vitamin D 25-OH Total 54.8 >30 ng/mL [facility] Comment: Health Based Reference Values*< 20 ng/mL Toujowkge43-71 ng/mL Insufficient> 30 ng/mL Sufficient*Ilene LOONEY. N Engl J Med. 2007;357:266-280There is no well-established upper level of normal vitamin Dlevels. Some laboratories use 50 ng/mL as an upper limit ofnormal. However, toxicity is patient-dependent and may occurat any level. Careful correlation with the patient'spresentation is necessary and, if there is concern forvitamin D toxicity, treatment should be consideredirrespective of the serum level.Care must be taken in interpreting Vitamin D results fromdifferent laboratories and methodologies. Published datademonstrated that results from patients undergoinghemodialysis may show a negative bias when tested withvarious automated 25-OH vitamin D assays when compared toLC-MS/MS.When testing samples from patients whose predominant form ofVitamin D is Vitamin D2, such as patients receiving VitaminD2 supplementation, results that are subtherapeutic shouldbe confirmed with another method such as LC-MS/MS. Blood Venous blood specimen / Unknown 11/04/2024 2:34 PM EDT 11/04/2024 4:08 PM EDT Natalee Matt DO LAB BLOOD ORDERABLES Final R esult Performing Organization Address [facility] Co de Phone Number [facility] [address] [place] [phone] * Albumin, Random Urine W/Creatinine (11/04/2024 2:34 PM EDT) Creatinine, Urine 149.42 mg/dL [facility] Microalbumin Urine 14.0 mg/L [facility] Microalbum Creatinine Ratio Ur 9.3 <30 ug/mg cr [facility] Comment:Albumin/Creatinine R atio Reference Ranges: Normal: < 30 ug/mg creatinine Microalbuminuria: 30 - 300 ug/mg creatinineClinical Albuminuria: > 300 ug/mg creatinine Urine (Urine, Random) 11/04/2024 2:34 PM EDT 11/04/2024 4:07 PM EDT Natalee Matt DO LAB URINE ORDERABLES Final R esult Performing Organization Address [facility]/ZIP Co de Phone Number [facility] [address] [place] [phone] * (ABNORMAL) Sed Rate by Modified Westergren (11/04/2024 2:34 PM EDT) Pathologist [facility] [place] Erythrocyte Sedimentation Rate 23(H) 0 - 15 MM/HR [facility] Comment:Patients with polycy themia and many hemoglobin abnormalitiesmay have depressed sed rates whereas patients with anemiamay have elevated sed rates. Blood Venous blood specimen / Unknown 11/04/2024 2:34 PM EDT 11/04/2024 4:08 PM EDT us Natalee Matt DO LAB BLOOD ORDERABLES Final R esult [facility] [address] [place] [phone] * (ABNORMAL) CBC (11/04/2024 2:34 PM EDT) Pathologist [facility] [place] White Blood Count 12.4(H) 4.8 - 10.8 X10*3/uL [facility] Red Blood Count 3.87(L) 4.60 - 5.80 X10*6/uL [facility] Hemoglobin 12.6(L) 14.0 - 18.0 g/dl [facility] Hematocrit 36.9(L) 42.0 - 52.0 % [facility] Mean Corpuscular Volume 95.3 80.0 - 98.0 fL [facility] Mean Corpuscular Hemoglobin 32.6 27.0 - 33.0 pg [facility] Mean Corpuscular HGB Conc 34.1 31.0 - 36.0 g/dl [facility] Red Cell Distribution Width 13.2 11.0 - 16.0 % [facility] Platelet Count 287 160 - 400 X10*3/uL [facility] Mean Platelet Volume 10.8 9.4 - 12.4 fL [facility] NRBC Pct Auto 0.0 0.0 - 0.2 /100WBC [facility] NRBC Abs Auto 0.000 0.0 - 0.012 X10*3/uL [facility] Blood Venous blood specimen / Unknown 11/04/2024 2:34 PM EDT 11/04/2024 4:08 PM EDT Natalee Vernell DO LAB BLOOD ORDERABLES Final R esult Performing Organization Address [facility]/ZIP Co de Phone Number [facility] [address] [place] [phone] * (ABNORMAL) C-reactive Protein (11/04/2024 2:34 PM EDT) C Reactive Protein 0.85(H) < or = 0.50 mg/dL [facility] Blood Venous blood specimen / Unknown 11/04/2024 2:34 PM EDT 11/04/2024 4:08 PM EDT Natalee Vernell LAB BLOOD ORDERABLES Final R esult Performing Organization Address [facility] Co de Phone Number [facility] [address] [place] [phone] * TSH (11/04/2024 2:34 PM EDT) Thyroid Stimulating Hormone 0.96 0.32 - 4.0 uIU/mL [facility] Comment:TSH 3rd Generation ( [facility]) Blood Venous blood specimen / Unknown 11/04/2024 2:34 PM EDT 11/04/2024 4:08 PM EDT Natalee Edmondsfany DO LAB BLOOD ORDERABLES Final R esult Performing Organization Address [facility] Co de Phone Number [facility] [address] [place] [phone] * T4, Free (11/04/2024 2:34 PM EDT) Free T4 (Free Thyroxine) 0.95 0.71 - 1.85 ng/dL [facility] Blood Venous blood specimen / Unknown 11/04/2024 2:34 PM EDT 11/04/2024 4:08 PM EDT Natalee Vernell LAB BLOOD ORDERABLES Final R esult Performing Organization Address [facility] Co de Phone Number [facility] [address] [place] [phone] * Hemoglobin A1c (11/04/2024 2:34 PM EDT) Hemoglobin A1c 6.0 <6.0 % [facility] Comment:Hemoglobin A1C Refer ence Range Adults: 4.8 - 6.0 % Non diabetic: < 6.0 % Goal: < 7.0 %Additional Action Suggested: > 8.0 %Note: Hemoglobin A1c results are invalid for patients with abnormal amounts of HbF. Blood transfusions may impact the HbA1c concentration in the patient sample. Estimated Average Glucose 126 mg/dL [facility] Comment:eAG = Estimated ave rage glucose which is %A1C expressed asaverage glucose, using the formula of the L5E-JsoqkvvYjuhyym Glucose study (ADAG), Diabetes Care, Vol.31,#8,Sep. 2007 Blood Venous blood specimen / Unknown 11/04/2024 2:34 PM EDT 11/04/2024 4:08 PM EDT Natalee Matt DO LAB BLOOD ORDERABLES Final R esult Performing Organization Address City/[facility] Co de Phone Number [facility] [address] [place] [phone] * Hepatic Function Panel (11/04/2024 2:34 PM EDT) Bilirubin, Total 0.6 0.0 - 1.0 mg/dL [facility] Bilirubin, Direct 0.2 0.0 - 0.5 mg/dL [facility] Aspartate Amino Transferase 31 5 - 37 U/L [facility] Alanine Aminotransferase 17 0 - 40 U/L [facility] Total Protein 7.8 6.5 - 8.0 g/dL [facility] Albumin Level 4.7 3.5 - 5.0 g/dL [facility] Alkaline Phosphatase 66 39 - 117 U/L [facility] Blood Venous blood specimen / Unknown 11/04/2024 2:34 PM EDT 11/04/2024 4:08 PM EDT Natalee Matt DO LAB BLOOD ORDERABLES Final R esult [facility] [address] [place] [phone] * (ABNORMAL) Lipid Panel, Standard (11/04/2024 2:34 PM EDT) Triglycerides 165(H) <150 mg/dL [facility] Comment:Desirable Triglyceri de: less than 150 mg/dLBorderline High Triglyceride 150-199 mg/dLHigh Triglyceride: 200-499 mg/dLVery High Triglyceride: greater than or equal to 5OO mg/dL Cholesterol 144 <200 mg/dL [facility] Comment:Desirable Cholestero l: less than 200 mg/dLBorderline High Cholesterol: 200-239 mg/dLHigh Cholesterol: greater than 239 mg/dL LDL Cholesterol Calculated 78 <100 mg/dL [facility] Comment:Desirable LDL: less than 100 mg/dLNear Optimal/Above Optimal LDL: 110- 129 mg/dLBorderline High LDL: 130-159 mg/dLHigh LDL: 160-189 mg/dLVery High LDL: greater than or equal to 190 mg/dL HDL Cholesterol 33(L) >40 mg/dL [facility] Comment:Desirable HDL: great er than 40 mg/dL Note: This HDL assay may give artificially low results in patients with liver disease. Blood Venous blood specimen / Unknown 11/04/2024 2:34 PM EDT 11/04/2024 4:08 PM EDT Natalee Matt DO LAB BLOOD ORDERABLES Final R esult Performing Organization Address [facility] Co de Phone Number [facility] [address] [place] [phone] * (ABNORMAL) Basic Metabolic Panel (11/04/2024 2:34 PM EDT) Sodium 140 135 - 145 mmol/L [facility] Potassium 3.6 3.3 - 5.1 mmol/L [facility] Chloride 104 96 - 108 mmol/L [facility] Carbon Dioxide 27 22 - 29 mmol/L [facility] Anion Gap 13 12 - 20 [facility] Urea Nitrogen (BUN) 7(L) 9 - 16 mg/dL [facility] Creatinine, Serum 1.21 0.5 - 1.4 mg/dL [facility] Estimated Glomerular Filt Rate >60 [facility] Comment:Chronic Kidney Disea se: Estimated GFR < 60 mL/min/1.94b7Waudcs Kidney Disease: Estimated GFR < 15 mL/min/1.73m2 Glucose 187(H) 60 - 115 mg/dL [facility] Calcium 9.6 8.4 - 10.2 mg/dL [facility] Blood Venous blood specimen / Unknown 11/04/2024 2:34 PM EDT 11/04/2024 4:08 PM EDT Natalee Matt LAB BLOOD ORDERABLES Final R esult Performing Organization Address [facility] Co de Phone Number [facility] [address] [place] [phone] * (ABNORMAL) POCT Urinalysis (10/14/2024 12:30 PM EDT) Color, UA Yellow Clarity, UA Hazy Glucose, UA Negative Bilirubin, UA Negative Ketones, UA Negative Spec Grav, UA 1.015 Blood, UA Positive(A) Negative, None Detected Comment:Trace-intact pH, UA 7.0 Protein, UA Negative Urobilinogen, UA 0.2 Leukocytes, UA Negative Negative, Rare, Trace Nitrite, UA Negative Negative, None Detected QC Media Lot # [id number] Lot# Expiration Date [id number] Urine 10/14/2024 12:3 0 PM EDT Natalee Matt DO POINT OF CARE TEST ENTER/MEHNAZ T ORDERABLES Final Result * Culture, Urine, Routine (10/14/2024 12:20 PM EDT) Urine Urine specimen obtained by clean catch procedure / Unknown 10/14/2024 12:20 PM EDT 10/14/2024 4:40 PM EDT Comment:UACC Narrative [facility] - 10/16/2024 11:16 AM EDT Urine Culture Report Result Urine Culture 10,000 to 50,000 cfu/ml Urine Culture Mixed bacterial cuate characteristic of Urine Culture urogenital contamination. Specimen Source: Urine clean catch Natalee Matt DO LAB MICROBIOLOGY - GENERAL O RDERABLES Final Result [facility] [address] [place] [phone] * Chlamydia/N. Gonorrhoeae, PCR, Urine (10/14/2024 12:17 PM EDT) CT PCR, Urine NOT DETECTED Not Detect. [facility] Comment:A not detected test result does not exclude the possibilityof infection because test results can be affected byimproper specimen collection, concurrent antibiotic therapy,or the number of organisms in the specimen which may bebelow the sensitivity of the test. As with many diagnostictests, results from the Xpert CT/NG assay should beinterpreted in conjunction with other laboratory andclinical data available to the clinician.The Xpert CT/NG assay should not be used for the evaluationof suspected sexual abuse or for other medico-legalindications. Additional testing is recommended in anycircumstance when false positive or false negative resultscould lead to adverse medical, social or psychologicalconsequences. NG PCR, Urine NOT DETECTED Not Detect. [facility] Comment:A not detected test result does not exclude the possibilityof infection because test results can be affected byimproper specimen collection, concurrent antibiotic therapy,or the number of organisms in the specimen which may bebelow the sensitivity of the test. As with many diagnostictests, results from the Xpert CT/NG assay should beinterpreted in conjunction with other laboratory andclinical data available to the clinician.The Xpert CT/NG assay should not be used for the evaluationof suspected sexual abuse or for other medico-legalindications. Additional testing is recommended in anycircumstance when false positive or false negative resultscould lead to adverse medical, social or psychologicalconsequences. Urine (Urine, Random) 10/14/2024 12:17 PM EDT 10/14/2024 4:41 PM EDT Natalee Matt DO LAB URINE ORDERABLES Final R esult Performing Organization Address City/State/[facility] Co de Phone Number [facility] [address] [place] [phone] * XR Hip 2 or 3 Views Right (10/14/2024 11:42 AM EDT) Anatomical Region Laterality Modality Lower Extremities, Hip Right Radiograp hic Imaging 10/14/2024 11:4 2 AM EDT Narrative 10/14/2024 12:36 PM EDT [address] [address] XRay Report Signed Patient: Dutch Royal MR#: [id number] 72 : 1960 Acct:[id number] Age/Sex: 64 / M ADM Date: 10/14/24 Loc: HO.HHCX Attending Dr: Natalee Matt DO Ordering Physician: Natalee Matt DO Date of Service: 10/14/24 Procedure(s): XR hip RT min 2V Accession Number(s): [id number] cc: Natalee Matt DO EXAMINATION: XR HIP, RIGHT CLINICAL INFORMATION: worsening hip pain/giving out COMPARISON: Correlated to lumbar spine x-ray dated November 05, 2020. TECHNIQUE: AP and oblique views of the right hip. FINDINGS: There are 2 metallic screws at the superior aspect of the right acetabulum. There is joint space narrowing and sclerosis along the articular surface as well as subchondral cyst formation in the right coxofemoral joint. No gross malalignment. No lytic or blastic lesions. XR/XR hip RT min 2V IMPRESSION: Moderate to severe osteoarthritis/osteoarthrosis right hip. Stable 2 metallic screws, right acetabulum. Electronically signed by: Wild Sierra MD 10/14/2024 12:33 PM EDT RP Dictated By: Wild Simon MD Signed By: <Electronically signed by Wild Haque MD in [place]> 10/14/24 1233 DD/ 1142 TD/TT: 10/14/24 1229 School Bus Driver: Procedure Note Donotuseinterpreter, Image - 10/14/[address] [address] XRay Report Signed Patient: Dutch Royal LMR#: [id number] 72 : 1960Acct:[id number] Age/Sex: 64 / MADM Date: 10/14/24 Loc: HO.HHCX Attending Dr: Natalee Matt DO Ordering Physician: Natalee Matt DO Date of Service: 10/14/24 Procedure(s): XR hip RT min 2V Accession Number(s): [id number] cc: Natalee Matt DO EXAMINATION: XR HIP, RIGHT CLINICAL INFORMATION: worsening hip pain/giving out COMPARISON: Correlated to lumbar spine x-ray dated November 05, 2020. TECHNIQUE: AP and oblique views of the right hip. FINDINGS: There are 2 metallic screws at the superior aspect of the right acetabulum. There is joint space narrowing and sclerosis along the articular surface as well as subchondral cyst formation in the right coxofemoral joint. No gross malalignment. No lytic or blastic lesions. XR/XR hip RT min 2V IMPRESSION: Moderate to severe osteoarthritis/osteoarthrosis right hip. Stable 2 metallic screws, right acetabulum. Electronically signed by: Wild Sierra MD 10/14/2024 12:33 PM EDT RP Dictated By: Wild Simon MD Signed By: <Electronically signed by Wild Haque MDin OV> 10/14/24 1233 DD/ 1142 TD/TT: 10/14/24 1229 School Bus Driver: Natalee Matt DO IMG XR PROCEDURES Final Resu lt * (ABNORMAL) POCT HGB A1C (10/14/2024 11:41 AM EDT) Hemoglobin A1C 5.8(A) 4.0 - 5.7 % QC Media Lot # [id number] Lot# Expiration Date Blood 10/14/2024 11:4 1 AM EDT Natalee Matt DO POINT OF CARE TEST ENTER/MEHNAZ T ORDERABLES Final Result * POCT Glucose (10/14/2024 11:40 AM EDT) Pathologist [facility] [place] Glucose Blood, POC 113 60 - 200 mg/dL QC Media Lot # [id number] Lot# Expiration Date Blood Capillary blood specimen / Unknown 10/14/2024 11:40 AM EDT Natalee Matt DO POINT OF CARE TEST ENTER/MEHNAZ T ORDERABLES Final Result * HIV-1/2 Antigen and Antibodies, Fourth Generation, with Reflexes (11/20/2023 11:28 AM EDT) HIV AB/AG Nonreactive Nonreactive [facility] Comment:HIV-1 p24 Ag and/or HIV-1/HIV-2 Ab not detected.A test result that is nonreactive does not exclude thepossibility of exposure to or infection with HIV-1 and/orHIV-2. Nonreactive results in this assay for individualswith prior exposure to HIV-1 and/or HIV-2 may be due toantigen and antibody levels that are below the limit ofdetection of this assay.The [facility] HIV Ag/Ab Combo assay result andsupplemental assay results should be interpreted inconjunction with the patient's clinical presentation,history and other laboratory results. If the results areinconsistent with clinical evidence, additional testing issuggested to confirm the result. Blood Venous blood specimen / Unknown 11/20/2023 11:28 AM EDT 11/20/2023 11:28 AM EDT us Natalee Matt DO LAB BLOOD ORDERABLES Final R esult [facility] [address] [place] [phone] * Colonoscopy (11/02/2022) Colonoscopy Normal Normal Narrative Viri Tee - 11/02/2022 Repeat Colonoscopy in 3-4 years due to polyps and fair prep or earlier if clinically indicated .See external hospital admission note on Historical Provider HEALTH MAINTENANCE Final Result from Last 3 Months or Most Recently Relevant to Health Maintenance Insurance [facility] ONE CARE < [address] [place] [id number] [place] [id number] DENTAL - [facility] Care Teams Computed Tomography Technician Relationship Specialty Start Date End Date Natalee Matt DO [address] [place] [phone] PCP - General Family Medicine 07/13/11 [facility] 11/16/15
--- OUTSIDE RECORDS SUMMARY | 2024-11-04 19:53 | XMS_ITS | Encounter Summary ---
Author Organization [employer] Address 75 [facility] 7t [place] [address] Care Team Providers Care Carbon Setter Name Role Phone Natalee Matt DO Primary Care Provider + [phone] Reason for Visit * Reason Onset Date Comments Call back request 11/01/2024 Encounter Details Date Type Department Care Team ([facility] st Contact Info) Description 11/01/2024 Telephone [facility] 230 [place], [place] [phone] Natalee Matt DO 230 [place], [place] [phone] Call back request Social History Tobacco Use Types Packs/Day Years [...] encounter Miscellaneous Notes * Telephone Encounter - Chrystal Armstrong RN - 11/01/2024 12:27 PM EDT TC returned to [facility], Per tc 10/15/24, pt. Had refused his Trulicity x 3 weeks therefore we provided an order to discontinue it. DANA RN now reports pt. Wanted to continue Trulicity as needed/ when he feels like it . DANA RN advised pt. She would not be administering it as it 1) had been discontinued and 2) those are not the directions and also not how the medication works. DANA RN reports pt. Thenbegan swearing and yelling, and fired the nurse. DANA RN reports pt. Has been becoming increasingly verbally aggressive to family members and his girlfriend's daughter has had to report him to elder services. [facility] NINA also reports pt. Is at major risk of losing his housing as he frequently smokes marijuana in the apartment and the housing dept. Will remove him if they discover this. [facility] is awaiting a call back from her sourcing manager to determine if pt. Is eligible to be reassigned to another nurse orif pt. Will be discharged from their services due to behavior. They will let me know if pt. Has to be discharged. * Telephone Encounter - Vianey Osuna - 11/01/2024 8:10 AM EDT Tc from [facility] requesting a call from a nurse to report pt behavior and medication trulicity. Contact [facility] at [phone] documented in this encounter Plan of Treatment Not on file documented as of this encounter Visit Diagnoses Not on filedocumented in this encounter Additional Health Concerns Assessment Noted Time PHQ-9 Depression Total Score: 5 11/20/19 24 10:07 AM EDT documented as of this encounter Care Teams Carbon Setter Relationship Specialty Start Date End Date Natalee Matt DO 230 [place] [address] PCP - General Family Medicine 07/13/11 [facility] 11/16/15 documented as of this encounter
--- OUTSIDE RECORDS SUMMARY | 2024-11-04 19:53 | XMS_ITS | Encounter Summary ---
Author Organization [employer] Address 75 [facility] 7t [place] [address] Care Team Providers Care Teaching Associate Name Role Phone Natalee Matt DO Primary Care Provider + [phone] Reason for Visit * Reason Comments Med Change Request Encounter Details Date Type Department Care Team ([facility] st Contact Info) Description 04/21/2023 Refill [facility] MEDICINE [address] [place], [place] [phone] Natalee Matt DO 230 [place], [place] [phone] Social History Tobacco Use Types Packs/Day Years [...] the past 12 months, has t he [employer], oil or water company threatened to shut [...] documented as of this encounter Care Teams Teaching Associate Relationship Specialty Start Date End Date Natalee Matt DO [address] [place] [address] PCP - General Family Medicine 07/13/11 [facility] 11/16/15 documented as of this encounter
--- OUTSIDE RECORDS SUMMARY | 2024-11-04 19:53 | XMS_ITS | Encounter Summary ---
Author Organization [employer] Address 75 [facility] 7t [place] [address] Care Team Providers Care Well Head Pumper Name Role Phone Natalee Matt DO Primary Care Provider + [phone] Reason for Visit * Reason Onset Date Comments Med Refill 01/03/2023 Encounter Details Date Type Department Care Team ([facility] st Contact Info) Description 01/03/2023 Telephone [facility] MEDICINE 230 [place], [place] [phone] Natalee Matt DO 230 [place], [place] [phone] Med Refill Social History Tobacco Use Types [...] Telephone Encounter - Natalee Deutsch LPN - 01/03/2023 2:41 PM EST Medication pended to PCP. * Telephone Encounter - Catalina Vences - 01/03/2023 2:36 PM EST [facility] on; acetaminophen (Tylenol 8 Hour) 650 MG ER tablet baclofen (Lioresal) 10 MG tablet documented in this encounter Plan of Treatment Not on file documented as of this encounter Visit Diagnoses Not on filedocumented in this encounter Additional Health Concerns Assessment Noted Time PHQ-9 Depression Total Score: 0 09/10/19 23 9:07 AM EDT documented as of this encounter Care Teams Well Head Pumper Relationship Specialty Start Date End Date Natalee Matt DO [address] [place] [address] PCP - General Family Medicine 07/13/11 [facility] 11/16/15 documented as of this encounter
--- OUTSIDE RECORDS SUMMARY | 2024-11-04 19:53 | XMS_ITS | Encounter Summary ---
Author Organization [employer] Address 75 [facility] 7t [place] [address] Care Team Providers Care Outsole Skiver Name Role Phone Natalee Matt DO Primary Care Provider + [phone] Reason for Visit * Reason Comments Med Refill Encounter Details Date Type Department Care Team ([facility] st Contact Info) Description 11/03/2024 Refill [facility] 230 [place], [place] [phone] Natalee Matt DO 230 [place], [place] [phone] Benign prostatic hyperplasia, unspecified whether lower urinary tract symptoms present; Pruritus Social History Tobacco Use Types Packs/Day Years [...] as of this encounter Visit Diagnoses Diagnosis Benign prostatic hyperplasia, unspecified whether lower urinary tract symptoms present Pruritus Unspecified pruritic disorder documented in this encounter Additional Health Concerns Assessment Noted Time PHQ-9 Depression Total Score: 5 11/20/19 24 10:07 AM EDT documented as of this encounter Care Teams Outsole Skiver Relationship Specialty Start Date End Date Natalee Matt DO 230 [place] [address] PCP - General Family Medicine 07/13/11 [facility] 11/16/15 documented as of this encounter
--- OUTSIDE RECORDS SUMMARY | 2024-11-04 19:53 | XMS_ITS | Encounter Summary ---
Author Organization [employer] Address 75 [facility] 7t [place] [address] Care Team Providers Care Manager Military Name Role Phone VernellNatalee Primary Care Provider + [phone] Encounter Details Date Type Department Care Team ([facility] st Contact Info) Description 05/25/[address] [facility] MED & PEDS [address] [place], [place] [phone] Natalee Deutsch LPN Social History Tobacco Use [...] on file documented as of this encounter Procedures Procedure Name Priority Date/Time Associated Diagnosis Comments VASC US LOWER EXTREMITY VENOUS DUPLEX RIGHT Routine 06/16/2022 3:56 PM EDT documented in this encounter Results * Vascular US lower extremity venous duplex right (06/16/2022 3:56 PM EDT) 06/16/2022 3:56 PM EDT Narrative [facility] - 06/16/2022 4:58 PM EDT [address] [address] Ultrasound Report Signed Patient: Dutch Royal MR#: [id number] 72 : 1960 Acct:[id number] Age/Sex: 62 / M ADM Date: 06/16/22 Loc: HO.US Attending Dr: Nino Lyle MD Ordering Physician: NINO LYLE MD Date of Service: 06/16/22 Procedure(s): US venous duplex LE RT Accession Number(s): [id number] cc: NINO LYLE MD EXAMINATION: US VENOUS ULTRASOUND WITH DOPPLER LOWER EXTREMITY, RIGHT CLINICAL INFORMATION: Acute pain COMPARISON: Bilateral venous Doppler ultrasound exam 05/17/2016 TECHNIQUE: Ultrasound of the deep veins is performed from the hip to the calf with compression sonography and color and pulse Doppler assessment. Spectral analysis with color-flow imaging is performed. FINDINGS: There is normal venous compression and respiratory variation and augmented flow. The visualized common femoral vein, superficial femoral vein, profunda femoral vein, popliteal vein, and the trifurcation region shows no evidence of deep venous thrombosis. No evidence of popliteal cysts. Morphologically normal-appearing lymph node with fatty hilum and short axis diameter 0.6 cm in the right proximal thigh. If the patient's symptoms persist, followup ultrasound in 5 days 7 days might be of value to exclude proximal propagation from a non-visualized calf vein. US/US venous duplex LE RT IMPRESSION: No DVT demonstrated in the right lower extremity. Dictated By: Chas Tobin MD Signed By: <Electronically signed by Chas Tobin MD in OV> 06/16/22 7492 DD/ 1556 TD/TT: Noise Abatement Engineer: EDITH Procedure Note Donotuseinterpreter, Image - 08/18/[address] [address] Ultrasound Report Signed Patient: Dutch Royal LMR#: [id number] 72 : 1960Acct:[id number] Age/Sex: 62 / MADM Date: 06/16/22 Loc: HO.US Attending Dr: Nino Lyle MD Ordering Physician: NINO LYLE MD Date of Service: 06/16/22 Procedure(s): US venous duplex LE RT Accession Number(s): [id number] cc: NINO LYLE MD EXAMINATION: US VENOUS ULTRASOUND WITH DOPPLER LOWER EXTREMITY, RIGHT CLINICAL INFORMATION: Acute pain COMPARISON: Bilateral venous Doppler ultrasound exam 05/17/2016 TECHNIQUE: Ultrasound of the deep veins is performed from the hip to the calf with compression sonography and color and pulse Doppler assessment. Spectral analysis with color-flow imaging is performed. FINDINGS: There is normal venous compression and respiratory variation and augmented flow. The visualized common femoral vein, superficial femoral vein, profunda femoral vein, popliteal vein, and the trifurcation region shows no evidence of deep venous thrombosis. No evidence of popliteal cysts. Morphologically normal-appearing lymph node with fatty hilum and short axis diameter 0.6 cm in the right proximal thigh. If the patient's symptoms persist, followup ultrasound in 5 days 7 days might be of value to exclude proximal propagation from a non-visualized calf vein. US/US venous duplex LE RT IMPRESSION: No DVT demonstrated in the right lower extremity. Dictated By: Chas Tobin MD Signed By: <Electronically signed by Chas Tobin MD in OV> 06/16/22 1655 DD/ 1556 TD/TT: Noise Abatement Engineer: EDITH us [facility] External Provider CV VASC ULAR PROCEDURES Final Result [facility] [address] [place] [address] documented in this encounter Visit Diagnoses Not on filedocumented in this encounter Additional Health Concerns Assessment Noted Time PHQ-9 Depression Total Score: 20 023 11:26 AM EST documented as of this encounter Care Teams Manager Military Relationship Specialty Start Date End Date Natalee Matt DO [address] [place] [address] PCP - General Family Medicine 07/13/11 [facility] 11/16/15 documented as of this encounter
--- OUTSIDE RECORDS SUMMARY | 2024-11-04 19:53 | XMS_ITS | Encounter Summary ---
Author Organization [employer] Address 75 [facility] 7t [place] [address] Care Team Providers Care Risk Engineer Name Role Phone Natalee Matt DO Primary Care Provider + [phone] Encounter Details Date Type Department Care Team (Late st Contact Info) Description 06/24/2022 Orders [address] [facility] 230 [place] [address] Nino Ta MD 230 [place] [address] Social History Tobacco Use Types Packs/Day Years [...] suspected to have Coronavirus/COVID-19? No / Unsure 06/24/2022 9:54 AM EDT documented as of this encounter Plan of Treatment Not on file documented as of this encounter Visit Diagnoses Not on filedocumented in this encounter Additional Health Concerns Assessment Noted Time PHQ-9 Depression Total Score: 20 04/19/ 023 11:26 AM EST documented as of this encounter Care Teams Risk Engineer Relationship Specialty Start Date End Date Natalee Matt DO 230 [place] [address] PCP - General Family Medicine 07/13/11 [facility] 11/16/15 documented as of this encounter
--- OUTSIDE RECORDS SUMMARY | 2024-11-04 19:53 | XMS_ITS | Encounter Summary ---
Author Organization [employer] Address 75 [facility] 7t [place] [address] Care Team Providers Care Hammer Runner Name Role Phone Natalee Matt DO Primary Care Provider + [phone] Reason for Visit * Reason Onset Date Comments Med Refill 02/14/2023 Encounter Details Date Type Department Care Team ([facility] st Contact Info) Description 02/14/2023 Telephone [facility] MEDICINE 230 [place], [place] [phone] Natalee Matt DO 230 [place], [place] [phone] Med Refill Social History Tobacco Use Types [...] Telephone Encounter - Natalee Deutsch LPN - 02/14/2023 9:45 AM EST Medication pended to PCP. * Telephone Encounter - Catalina Vences - 02/14/2023 9:23 AM EST TC from pt requesting medication refill. Medications needing refill : gabapentin (Neurontin) 100 MG capsule [facility] states pt don't have medication for tomorrow To be sent to: [facility]/pharmacy [address] [place] [address] - [address] [place] [address] documented in this encounter Plan of Treatment Not on file documented as of this encounter Visit Diagnoses Not on filedocumented in this encounter Additional Health Concerns Assessment Noted Time PHQ-9 Depression Total Score: 0 09/10/19 23 9:07 AM EDT documented as of this encounter Care Teams Hammer Runner Relationship Specialty Start Date End Date Natalee Matt DO 230 [place] [address] PCP - General Family Medicine 07/13/11 [facility] 11/16/15 documented as of this encounter
--- OUTSIDE RECORDS SUMMARY | 2024-11-04 19:53 | XMS_ITS | Encounter Summary ---
Author Organization [employer] Address 75 [facility] 7t [place] [address] Care Team Providers Care Computer Aided Design Technician Name Role Phone Natalee Matt DO Primary Care Provider + [phone] Encounter Details Date Type Department Care Team ([facility] st Contact Info) Description 07/13/2022 Abstract [facility] MEDICINE 230 [place] [address] Natalee Matt DO 230 [place], [place] [phone] Social History Tobacco Use Types Packs/Day Years [...] documented as of this encounter Care Teams Computer Aided Design Technician Relationship Specialty Start Date End Date Natalee Matt DO 230 [place] [address] PCP - General Family Medicine 07/13/11 [facility] 11/16/15 documented as of this encounter
--- OUTSIDE RECORDS SUMMARY | 2024-11-04 19:53 | XMS_ITS | Encounter Summary ---
Author Organization [employer] Address 75 [facility] 7t [place] [address] Care Team Providers Care Manager Sound Name Role Phone Natalee Matt DO Primary Care Provider + [phone] Reason for Visit * Reason Onset Date Comments Durable Medical Equipment 10/18/2024 Encounter Details Date Type Department Care Team ([facility] st Contact Info) Description 10/18/2024 Telephone [facility] MEDICINE 230 [place], [place] [phone] Natalee Matt DO 230 [place], [place] [phone] Durable Medical Equipment Social History Tobacco Use Types Packs/Day Years [...] encounter Miscellaneous Notes * Telephone Encounter - Vianey Osuna - 10/18/2024 9:49 AM EDT Tc from [facility] requesting a new scrip for DME - nebulizer machine To be deliver documented in this encounter Plan of Treatment Not on file documented as of this encounter Visit Diagnoses Not on filedocumented in this encounter Additional Health Concerns Assessment Noted Time PHQ-9 Depression Total Score: 5 11/20/19 24 10:07 AM EDT documented as of this encounter Care Teams Manager Sound Relationship Specialty Start Date End Date Natalee Matt DO [address] [place] [address] PCP - General Family Medicine 07/13/11 [facility] 11/16/15 documented as of this encounter
[2024-11-05 08:44] LABS: HBS Num1 0.91 mIU/mL (0-7.99); HBsAGNum1 0.39 S/CO (0.00-0.99); HIV Num 1 0.05 S/CO (0.00-0.99); Hepatitis B Surface Antigen Negative (Negative); ~HepC Num1 13.08 S/CO (0.00-0.79); ~Hepatitis B Surface Antibody NONREACTIVE (Nonreactive); ~Hepatitis C Antibody Reactive (Nonreactive)
[2024-11-06 14:23] LABS: HCV Log PCR <1.18 NOT DETECTED Log IU/mL (NOT DETECTED); HepC Viral Load <15 NOT DETECTED IU/mL (NOT DETECTED)
[2024-11-07 10:19] LABS: Anti Nuclear Antibody Screen POSITIVE (NEGATIVE); Anti Nuclear Antibody Titer 1:80 titer
== END 2024-11-04 14:26 | disposition home or self-care (01) ==
LOC: HO.HHCL 14:25
PROVIDERS: PCP Family Medicine; Visit Provider Family Medicine
DX: Z00.00 Encounter for general adult medical examination without abnormal findings (principal); E11.9 Type 2 diabetes mellitus without complications; I10 Essential (primary) hypertension; E78.49 Other hyperlipidemia; F20.9 Schizophrenia, unspecified; G47.33 Obstructive sleep apnea (adult) (pediatric); J44.9 Chronic obstructive pulmonary disease, unspecified; M54.2 Cervicalgia; M54.9 Dorsalgia, unspecified; G89.29 Other chronic pain; N40.0 Benign prostatic hyperplasia without lower urinary tract symptoms; R32 Unspecified urinary incontinence; K59.09 Other constipation; R30.9 Painful micturition, unspecified; M25.551 Pain in right hip; Z87.891 Personal history of nicotine dependence
CPT/HCPCS: 36415; 80048; 80061; 80076; 82043; 82306; 82570; 83036; 84439; 84443; 85027; 85652; 86038; 86039; 86140; 86592; 86706; 86803; 87340; 87389; 87522

== ENCOUNTER 2024-11-20 16:20 | Emergency (ER) | payer OTHER, SELFPAY ==
[2024-11-20 16:32] VITALS: BP 138/92; PULSE 104; RESP 18; TEMP 36.6; O2SAT 97; BMI 28.7
--- OUTSIDE RECORDS SUMMARY | 2024-11-20 16:43 | XMS_ITS | Encounter Summary ---
Author Organization [employer] Address 75 [facility] 7t [place] [address] Care Team Providers Care Audiovisual Production Specialist Name Role Phone Natalee Matt DO Primary Care Provider + [phone] Reason for Visit * Reason Onset Date Comments Nurse Triage 06/07/2023 Encounter Details Date Type Department Care Team ([facility] st Contact Info) Description 06/07/2023 Telephone [facility] 230 [place], [place] [phone] Natalee Matt DO 230 [place], [place] [phone] Nurse Triage Social History Tobacco Use Types [...] documented as of this encounter Care Teams Audiovisual Production Specialist Relationship Specialty Start Date End Date Natalee Matt DO [address] [place] [address] PCP - General Family Medicine 07/13/11 [facility] 11/16/15 documented as of this encounter
--- OUTSIDE RECORDS SUMMARY | 2024-11-20 16:43 | XMS_ITS | Encounter Summary ---
Author Organization [employer] Address 75 [facility] 7t [place] [address] Care Team Providers Care Careers Adviser Name Role Phone Natalee Matt DO Primary Care Provider + [phone] Reason for Visit * Reason Onset Date Comments Medication Question 11/25/2022 Concern Patient 11/25/2022 Encounter Details Date Type Department Care Team ([facility] st Contact Info) Description 11/25/2022 Telephone [facility] MEDICINE 230 [place] [address] Natalee Matt DO 230 [place], [place] [phone] Medication Question; Concern Patient Social History Tobacco [...] 11/25/2022 10:52 AM EDT TC returned to [facility] [phone] who reports she is concerned the pt is medication seeking. Marlow reports she went to see the pt and his significant other reported to [facility] ([facility]) that the pt went to [facility] yesterday and received a script for tramadol [...] his cane however when he comes to [facility] he will use his cane. VNA also [...] was recently atthe urgent care at the [facility], for supposedly for some pain on his leg and was prescribe tramadol but he didn't have any pain all day until he got into [facility]. [facility] is concern due to pt already being in so many medications and does not know if it was a way for pt to obtain more medications. Please contact [facility] at [phone] [facility] states she has a meeting 11:00 to 12:30 pm to please call afterwards. documented in this encounter Plan of Treatment Not on file documented as of this encounter Visit Diagnoses Not on filedocumented in this encounter Additional Health Concerns Assessment Noted Time PHQ-9 Depression Total Score: 0 09/10/19 9:07 AM EDT documented as of this encounter Care Teams Careers Adviser Relationship Specialty Start Date End Date Natalee Matt DO 230 [place] [address] PCP - General Family Medicine 07/13/11 [facility] 11/16/15 documented as of this encounter
--- OUTSIDE RECORDS SUMMARY | 2024-11-20 16:43 | XMS_ITS | Encounter Summary ---
Author Organization [employer] Address 75 [facility] 7t [place] [address] Care Team Providers Care Cleaning Matron Name Role Phone VernellNatalee Primary Care Provider + [phone] Encounter Details Date Type Department Care Team ([facility] st Contact Info) Description 05/25/2022 Orders Only [facility] MED & PEDS 505 [place], [place] [phone] Natalee Deutsch LPN Social History Tobacco Use [...] PM EDT) 06/16/2022 3:56 PM EDT Narrative [facility] - 06/16/2022 4:58 PM EDT [address] [address] Ultrasound Report Signed Patient: Dutch Royal MR#: [id number] 72 : 1960 Acct:[id number] Age/Sex: 62 / M ADM Date: 06/16/22 Loc: HO.US Attending Dr: Nino Lyle MD Ordering Physician: NINO LYLE MD Date of Service: 06/16/22 Procedure(s): US venous duplex LE RT Accession Number(s): [id number] cc: NINO LYLE MD EXAMINATION: US VENOUS [...] by Chas Tobin MD in OV> 06/16/22 5746 DD/ 1556 TD/TT: Pipeline Integrity Engineer: EDITH Procedure Note Donotuseinterpreter, Image - 08/18/[address] [address] Ultrasound Report Signed Patient: Dutch Royal LMR#: [id number] 72 : 1960Acct:[id number] Age/Sex: 62 / MADM Date: 06/16/22 Loc: HO.US Attending Dr: Nino Lyle MD Ordering Physician: NINO LYLE MD Date of Service: 06/16/22 Procedure(s): US venous duplex LE RT Accession Number(s): [id number] cc: NINO LYLE MD EXAMINATION: US VENOUS [...] in the right lower extremity. Dictated By: Chsa Tobin MD Signed By: <Electronically signed by Chas Tobin MD in OV> 06/16/22 1655 DD/ 1556 TD/TT: Pipeline Integrity Engineer: EDITH us [facility] External Provider CV VASC ULAR PROCEDURES Final Result [facility] [address] [place] [address] documented in this encounter Visit Diagnoses Not on filedocumented in this encounter Additional Health Concerns Assessment Noted Time PHQ-9 Depression Total Score: 20 023 11:26 AM EST documented as of this encounter Care Teams Cleaning Matron Relationship Specialty Start Date End Date Natalee Matt DO [address] [place] [address] PCP - General Family Medicine 07/13/11 [facility] 11/16/15 documented as of this encounter
--- OUTSIDE RECORDS SUMMARY | 2024-11-20 16:43 | XMS_ITS | Encounter Summary ---
Author Organization [employer] Address 75 [facility] 7t [place] [address] Care Team Providers Care Clay Miner Name Role Phone Natalee Matt DO Primary Care Provider + [phone] Reason for Visit * Reason Comments Med Change Request Encounter Details Date Type Department Care Team ([facility] st Contact Info) Description 04/21/2023 Refill [facility] MEDICINE 230 [place], [place] [phone] Natalee Matt DO 230 [place], [place] [phone] Social History Tobacco Use Types Packs/Day Years [...] the past 12 months, has t he [employer], gas, oil or water company threatened to [...] documented as of this encounter Care Teams Clay Miner Relationship Specialty Start Date End Date Natalee Matt DO [address] [place] [address] PCP - General Family Medicine 07/13/11 [facility] 11/16/15 documented as of this encounter
--- OUTSIDE RECORDS SUMMARY | 2024-11-20 16:43 | XMS_ITS | Encounter Summary ---
Author Organization [employer] Address 75 [facility] 7t [place] [address] Care Team Providers Care Tip Stitcher Name Role Phone Natalee Matt DO Primary Care Provider +[phone] Encounter Details Date Type Department Care Team (Late st Contact Info) Description 03/11/2022 Orders Only [facility] CH[facility] MED & PEDS [address] [place] [address] Natalee Deutsch LPN Social History Tobacco Use [...] on filedocumented in this encounter Care Teams Tip Stitcher Relationship Specialty Start Date End Date Natalee Matt DO [address] [place] [address] PCP - General Family Medicine 07/13/11 [facility] 11/16/15 documented as of this encounter
--- OUTSIDE RECORDS SUMMARY | 2024-11-20 16:43 | XMS_ITS | Encounter Summary ---
Author Organization [employer] Address [address] [facility] 7t [place] [address] Care Team Providers Care Human Services Manager Name Role Phone Natalee Matt DO Primary Care Provider + [phone] Reason for Visit * Reason Onset Date Comments Med Refill 06/06/2023 Encounter Details Date Type Department Care Team ([facility] st Contact Info) Description 06/06/2023 Telephone [facility] MEDICINE [address] [place], [place] [phone] Natalee Matt DO [address] [place], [place] [phone] Med Refill Social History Tobacco Use Types [...] 10:27 AM EDT Medication was sent to [facility] #[id number] on 06/01/23. * Telephone Encounter - [place] Vences - 06/06/2023 10:11 AM EDT TC from pt requesting medication refill. Medications needing refill : cholecalciferol (Vitamin D-3) 50 MCG (1999 UT) tablet To be sent to: [facility]/pharmacy #[id number] - [address] documented in this encounter Plan of Treatment Not on file documented as of this encounter Visit Diagnoses Not on filedocumented in this encounter Additional Health Concerns Assessment Noted Time PHQ-9 Depression Total Score: 0 09/10/19 23 9:07 AM EDT documented as of this encounter Care Teams Human Services Manager Relationship Specialty Start Date End Date Natalee Matt DO [address] [place] [address] PCP - General Family Medicine 07/13/11 [facility] 11/16/15 documented as of this encounter
--- OUTSIDE RECORDS SUMMARY | 2024-11-20 16:43 | XMS_ITS | Encounter Summary ---
Author Organization [employer] Address [address] [facility] 7t [place] [address] Care Team Providers Care Supervisor Sewer System Name Role Phone Natalee Matt DO Primary Care Provider + [phone] Encounter Details Date Type Department Care Team (Late st Contact Info) Description 06/24/2022 Orders Only [facility] [address] [place] [address] Nino Ta MD [address] [place] [address] Social History Tobacco Use Types Packs/Day Years [...] documented as of this encounter Care Teams Supervisor Sewer System Relationship Specialty Start Date End Date Natalee Matt DO [address] [place] [address] PCP - General Family Medicine 07/13/11 [facility] 11/16/15 documented as of this encounter
--- OUTSIDE RECORDS SUMMARY | 2024-11-20 16:43 | XMS_ITS | Encounter Summary ---
Author Organization [employer] Address [address] [facility] 7t [place] [address] Care Team Providers Care Forensic Economist Name Role Phone Natalee Matt DO Primary Care Provider + [phone] Reason for Visit * Reason Onset Date Comments Med Refill 01/03/2023 Encounter Details Date Type Department Care Team ([facility] st Contact Info) Description 01/03/2023 Telephone [facility] MED[facility]INE [address] [place], [place] [phone] Natalee Matt DO [address] [place], [place] [phone] Med Refill Social History Tobacco Use Types [...] - 01/03/2023 2:36 PM EST [facility]; acetaminophen (Tylenol 8 Hour) 650 MG ER tablet baclofen (Lioresal) 10 MG tablet documented in this encounter Plan of Treatment Not on file documented as of this encounter Visit Diagnoses Not on filedocumented in this encounter Additional Health Concerns Assessment Noted Time PHQ-9 Depression Total Score: 0 09/10/19 23 9:07 AM EDT documented as of this encounter Care Teams Forensic Economist Relationship Specialty Start Date End Date Natalee Matt DO [address] [place] [id number] PCP - General Family Medicine 07/13/11 [facility] 11/16/15 documented as of this encounter
--- OUTSIDE RECORDS SUMMARY | 2024-11-20 16:43 | XMS_ITS | Encounter Summary ---
Author Organization [employer] Address [address] [facility] 7t [place] [address] Care Team Providers Care Non Destructive Evaluation Technician Name Role Phone Natalee Matt DO Primary Care Provider + [phone] Reason for Visit * Reason Onset Date Comments Med Refill 02/14/2023 Encounter Details Date Type Department Care Team ([facility] st Contact Info) Description 02/14/2023 Telephone [facility] MEDICINE [address] [place], [place] [phone] Natalee Matt DO [address] [place], [place] [phone] Med Refill Social History Tobacco Use Types [...] medication for tomorrow To be sent to: [facility]/pharmacy #[id number] [place] [address] - [address] [place] [address] documented in this encounter Plan of Treatment Not on file documented as of this encounter Visit Diagnoses Not on filedocumented in this encounter Additional Health Concerns Assessment Noted Time PHQ-9 Depression Total Score: 0 09/10/19 23 9:07 AM EDT documented as of this encounter Care Teams Non Destructive Evaluation Technician Relationship Specialty Start Date End Date Natalee Matt DO [address] [place] [address] PCP - General Family Medicine 07/13/11 [facility] 11/16/15 documented as of this encounter
--- OUTSIDE RECORDS SUMMARY | 2024-11-20 16:43 | XMS_ITS | Encounter Summary ---
Author Organization [employer] Address [address] [facility] 7t [place] [address] Care Team Providers Care Glaze Maker Name Role Phone Natalee Matt DO Primary Care Provider + [phone] Encounter Details Date Type Department Care Team (Latest Contact Info) Description 06/26/2020 Abstract [facility] CONVERSIONS Dental, Provider, DDS Social History Tobacco [...] on filedocumented in this encounter Care Teams Glaze Maker Relationship Specialty Start Date End Date Natalee Matt DO [address] [place] [id number] PCP - General Family Medicine 07/13/11 [facility] 11/16/15 documented as of this encounter
--- OUTSIDE RECORDS SUMMARY | 2024-11-20 16:43 | XMS_ITS | Encounter Summary ---
Author Organization [employer] Address [address] [facility] [address] [place] [address] Care Team Providers Care Trimmer Operator Name Role Phone Natalee Matt DO Primary Care Provider + [phone] Encounter Details Date Type Department Care Team ([facility] st Contact Info) Description 07/13/2022 Abstract [facility] MEDICINE [address] [place] [address] Natalee Matt DO [address] [place], [place] [phone] Social History Tobacco Use Types Packs/Day Years [...] documented as of this encounter Care Teams Trimmer Operator Relationship Specialty Start Date End Date Natalee Matt DO [address] [place] [address] PCP - General Family Medicine 07/13/11 [facility] 11/16/15 documented as of this encounter
--- OUTSIDE RECORDS SUMMARY | 2024-11-20 16:43 | XMS_ITS | Encounter Summary ---
Author Organization [employer] Address [address] [facility] [address] [place] [address] Care Team Providers Care General Surgeon Name Role Phone Natalee Mtat DO Primary Care Provider + [phone] Reason for Visit * Reason Comments Med Refill Encounter Details Date Type Department Care Team ([facility] st Contact Info) Description 09/16/2024 Refill [facility] MEDICINE [address] [place], [place] [phone] Natalee Matt DO [address] [place], [place] [phone] Chronic neck and back pain Social History [...] documented as of this encounter Care Teams General Surgeon Relationship Specialty Start Date End Date Natalee Matt DO [address] [place] [id number] PCP - General Family Medicine 07/13/11 [facility] 11/16/15 documented as of this encounter
--- OUTSIDE RECORDS SUMMARY | 2024-11-20 16:43 | XMS_ITS | Clinical Summary ---
Author Organization [employer] Address [address] [facility] [address] [place] [address] Care Team Providers Care Ceramic Artist Name Role Phone Natalee Matt DO Primary Care Provider + [phone] Allergies Active Allergy Reactions Criticality Noted Date [...] complication, without long-term current use of insulin ([facility]) USE TO TEST BLOOD SUGAR ONCE A DAY 100 strip 11 025 Active polycarbophil (FiberCon) 625 MG tablet Take 1 tablet (625 mg) by mouth Once per day. 90 tablet 3 025 2025 Active Dulaglutide 0.75 MG/0.5ML solution auto-injectorIn dications:Type 2 diabetes mellitus without complication, without long-term current use of insulin (HCC) Inject 0.75 mg under the skin 1 [...] SPLIT. 90 tablet 2 025 Active Umeclidinium [place] (Incruse Ellipta) 62.5 MCG/ACT aerosol powderIndicatio ns:Chronic obstructive pulmonary disease, unspecified COPD type (CMS/HCC) ([facility]) Inhale 1 Act (62.5 mcg) Once per [...] obstructive pulmonary disease, unspecified COPD type (CMS/HCC) ([facility]) TAKE 3 ML BY NEBULIZATION ROUTE EVERY [...] FOR ITCHING 180 tablet 1 025 Active tamsulosin (Flomax) 0.4 MG 24 [...] ITCHING 180 tablet 1 025 2024 Discontinued gabapentin (Neurontin) 100 MG capsuleIndicati ons:Chronic neck and back pain TOME 1 CAPSULA POR VIA ORAL NANCY VECES AL KERRY 90 capsule 025 2024 Discontinued Active Problems Problem Noted Date Diagnosed Date [...] BID severe pain -advised schedule eval with [facility] PM, contact info given -f/u with [facility] after PM eval -advised contact [facility] if sx change or worsen Osteoarthritis 04/18/2022 [...] organization. Date Type Department Care Team Description 11/11/2024 Results Follow-Up [facility] [address] [place] [phone] Viktoria Valdivia, RN POCT Glucose, POCT HGB A1C, POCT Urinalysis, Additional followed-up results: 19 11/03/2024 Refill [facility] [address] [place] [address] Natalee Matt DO Benign prostatic hyperplasia, unspecified whether lower urinary tract symptoms present; Pruritus 11/01/2024 Telephone [facility] [address] [place] [address] Natalee Matt DO Call back request 10/28/2024 Refill [facility] [address] [place] [address] Jessica Mcnally MD Chronic neck and back pain 10/23/2024 Refill [facility] [address] [place] [address] Ely Peterson MD 10/18/2024 Telephone [facility] [address] [place] [phone] Natalee Matt DO Durable Medical Equipment 10/18/2024 Refill [facility] [address] [place] [phone] Natalee Matt DO Chronic obstructive pulmonary disease, unspecified COPD type (CMS/HCC) 10/15/2024 Refill [facility] [address] [place] [phone] Natalee Matt DO Chronic obstructive pulmonary disease, unspecified COPD type (CMS/HCC) 10/14/2024 11:15 AM EDT Office Visit [facility] [address] [place] [phone] Natalee Matt DO Type 2 diabetes mellitus without complication, without long-term current use of insulin ([facility]) (Primary Dx); Essential hypertension; Other hyperlipidemia; Schizophrenia, unspecified type (CMS/HCC); KRISTY (obstructive sleep apnea); Chronic obstructive pulmonary disease, unspecified COPD type (CMS/HCC); Chronic neck and back pain; Polyarthralgia; BPH without obstruction/lower urinary tract symptoms; Urinary incontinence, unspecified type; Chronic constipation; History of tobacco use; Painful urination; Pain of right hip; Healthcare maintenance 10/14/2024 Refill [facility] [address] [place] [address] Natalee Matt DO Chronic obstructive pulmonary disease, unspecified COPD type (CMS/HCC) 10/14/2024 Travel 10/11/2024 Telephone [facility] [address] [place] [address] Natalee Matt, Chart Prep 10/10/2024 Telephone [facility] [address] [place] [address] Natalee Matt, fyi 10/09/2024 Refill [facility] [address] [place] [address] Natalee Matt, Chronic neck and back pain 10/07/2024 Patient Outreach [facility] [address] [place] [address] Natalee Matt, Pre-visit Planning (SDOH unable to reach LVM ) 10/04/2024 Telephone [facility] [address] [place] [address] Natalee Matt DO Durable Medical Equipment ([facility] [employer] DME Request: Shower Mat) 09/30/2024 Telephone [facility] [address] [place] [address] Natalee Matt, Med Refill 09/26/2024 Refill [facility] [address] [place] [address] Natalee Matt, Chronic neck and back pain 09/21/2024 Refill [facility] [address] [place] [address] Natalee Matt DO 09/19/2024 Telephone [facility] [address] [place] [address] Natalee Matt, Med Refill 09/19/2024 Refill [facility] [address] [place] [address] Natalee Matt, Total body pain 09/18/2024 Telephone [facility] [address] [place] [address] Natalee Matt, DO Med Refill 09/16/2024 Refill [facility] [address] [place] [address] Natalee Matt, Chronic neck and back pain 09/11/2024 Refill [facility] [address] [place] [address] Natalee Matt DO 08/29/2024 Refill [facility] [address] [place] [address] Natalee Matt DO 08/28/2024 Refill [facility] [address] [place] [address] Natalee Matt DO Chronic neck and back pain from Last 3 Months Immunizations Immunization Administration [...] history exists Depression Screening 11/19/2024 11/20/2023, 11/20/19 24 Diabetes: Hemoglobin A1C 05/04/2025 025, 10/14/2024, 11/20/2023, [...] 04/04/2022, Additional history exists HIV Screening Completed 11/04/2024, 10/23, 08/05/2019 HIB Vaccines Aged Out No longer [...] Procedure Name Priority Date/Time Associated Diagnosis Comments HEPATITIS C VIRAL RNA, QUANTITATIVE, REAL-TIME PCR Routine 11/04/2024 2:34 PM EDT Type 2 diabetes mellitus without complication, without long-term current use of insulin (CMS/HCC) FUNMILAYO SCREEN, IFA, W/REFL TITER AND PATTERN Routine 11/04/2024 2:34 PM EDT Type 2 [...] urination Pain of right hip Healthcare maintenance C-REACTIVE PROTEIN Routine 11/04/2024 2: 34 PM [...] urination Pain of right hip Healthcare maintenance HEPATITIS B SURFACE ANTIBODY, QUALITATIVE Routine 11/04/2024 2:34 PM EDT Type 2 [...] urination Pain of right hip Healthcare maintenance RPR (MONITOR) W/REFL TITER Routine 11/04/2024 2:34 PM EDT Type 2 [...] urination Pain of right hip Healthcare maintenance HEPATITIS C AB W/REFL TO HCV RNA, QN, PCR Routine 11/04/2024 2:34 PM EDT Type 2 [...] urination Pain of right hip Healthcare maintenance HIV 1/2 ANTIGEN/ANTIBODY, FOURTH GENERATION W/RFL Routine 11/04/2024 2:34 PM EDT Type 2 [...] urination Pain of right hip Healthcare maintenance HEPATITIS B SURFACE ANTIGEN, EIA Routine 11/04/2024 2:34 PM EDT Type 2 [...] complication, without long-term current use of insulin ([facility]/HCC) Essential hypertension Other hyperlipidemia Schizophrenia, unspecified type [...] complication, without long-term current use of insulin ([facility]/HCC) Essential hypertension Other hyperlipidemia Schizophrenia, unspecified type ([facility]/HCC) KRISTY (obstructive sleep apnea) Chronic obstructive pulmonary [...] complication, without long-term current use of insulin ([facility]) POCT GLUCOSE Routine 10/14/2024 11:40 AM EDT Type 2 diabetes mellitus without complication, without long-term current use of insulin ([facility]) HM COLONOSCOPY Routine 11/02/2022 PANORAMIC RADIOGRAPHIC IMAGE [...] 25-Hydroxy, Total, Immunoassay (11/04/2024 2:34 PM EDT) [facility] Vitamin D 25-OH Total 54.8 >30 ng/mL [facility] Comment: Health Based Reference Values*< 20 ng/mL [id number] ng/mL Insufficient> 30 ng/mL Sufficient*Ilene LOONEY. N [...] ORDERABLES Final R esult Performing Organization Address [facility] Co de Phone Number [facility] [address] [place] [phone] * Hepatitis C Viral RNA, Quantitative, Real-Time PCR (11/04/2024 2:34 PM EDT) Pathologist [facility] Hepatitis C Viral Load <15 NOT DETECTED NOT DETECTED IU/mL [facility] HCV Log PCR <1.18 NOT DETECTED NOT DETECTED Log IU/mL [facility] Comment:For additional infor connie, please refer tohttp://education.zwoor.com/faq/RYH33g1(This link is being provided for informational/educational purposes only.)THIS TEST WAS PERFORMED AT:[employer] [place] [phone] HOWELL MD 11/04/2024 2:34 PM EDT 11/05/2024 11:38 AM EDT Natalee Vernell LAB BLOOD ORDERABLES Final R esult Performing Organization Address [facility] Co de Phone Number [facility] [address] [place] [phone] * Albumin, Random Urine W/Creatinine (11/04/2024 2:34 PM EDT) Creatinine, Urine 149.42 mg/dL [facility] Microalbumin Urine 14.0 mg/L [facility] Microalbum Creatinine Ratio Ur 9.3 <30 ug/mg cr [facility] Comment:Albumin/Creatinine R atio Reference Ranges: Normal: < 30 ug/mg creatinine Microalbuminuria: 30 - 300 ug/mg creatinineClinical Albuminuria: > 300 ug/mg creatinine Urine (Urine, Random) 11/04/2024 2:34 PM EDT 11/04/2024 4:07 PM EDT Natalee Matt DO LAB URINE ORDERABLES Final R esult Performing Organization Address [facility]/ZIP Co de Phone Number [facility] [address] [place] [phone] * (ABNORMAL) Hepatitis C Antibody with Reflex to HCV, RNA, Quantitative, Real- Time PCR (11/04/2024 2:34 PM EDT) Hepatitis C Antibody Reactive( A) Nonreactive [facility] Comment:Presumptive evidence of antibodies to HCV. Blood Venous blood specimen / Unknown 11/04/2024 2:34 PM EDT 11/04/2024 4:08 PM EDT us Natalee Matt DO LAB BLOOD ORDERABLES Final R esult Performing Organization Address [facility] Co de Phone Number [facility] [address] [place] [phone] * Hepatitis B surface antigen, EIA (11/04/2024 2:34 PM EDT) Hepatitis B Surface Ag Negative Negative [facility] Blood Venous blood specimen / Unknown 11/04/2024 2:34 PM EDT 11/04/2024 4:08 PM EDT Natalee Matt DO LAB BLOOD ORDERABLES Final R esult Performing Organization Address City/[facility]/ZIP Co de Phone Number [facility] [address] [place] [phone] * RPR (Monitor) with Reflex to??Titer (11/04/2024 2:34 PM EDT) RPR (Monitor) w/Refl Titer NON-REACTI VE NON-REACT [place] Comment:THIS TEST WAS PERFOR MED AT:[employer] [place] [phone] HOWELL MD Rapid Plasma Reagin Ab Titer TNP [facility] Blood Venous blood specimen / Unknown 11/04/2024 2:34 PM EDT 11/04/2024 4:08 PM EDT Natalee Tetofl Zero Locus LAB BLOOD ORDERABLES Final R esult Performing Organization Address City/[facility]/ZIP Co de Phone Number [facility] [address] [place] [phone] * HIV-1/2 Antigen and Antibodies, Fourth Generation, with Reflexes (11/04/2024 2:34 PM EDT) HIV AB/AG Nonreactive Nonreactive [facility] Comment:HIV-1 p24 Ag and/or HIV-1/HIV-2 Ab not detected.A test result that is nonreactive does not exclude thepossibility of exposure to or infection with HIV-1 and/orHIV-2. Nonreactive results in this assay for individualswith prior exposure to HIV-1 and/or HIV-2 may be due toantigen and antibody levels that are below the limit ofdetection of this assay.The Flinqer HIV Ag/Ab Combo assay result andsupplemental assay results should be interpreted inconjunction with the patient's clinical presentation,history and other laboratory results. If the results areinconsistent with clinical evidence, additional testing issuggested to confirm the result. Blood Venous blood specimen / Unknown 11/04/2024 2:34 PM EDT 11/04/2024 4:08 PM EDT Natalee Jurfany Zero Locus LAB BLOOD ORDERABLES Final R esult Performing Organization Address City/[facility]/ZIP Co de Phone Number [facility] [address] [place] [phone] * Hepatitis B Surface Antibody, Qualitative (11/04/2024 2:34 PM EDT) Pathologist [facility] ~Hepatitis B Surface Antibody NONREACTIVE Nonreactive [facility] Comment:Nonreactive: < 8.00 mIU/mL Blood Venous blood specimen / Unknown 11/04/2024 2:34 PM EDT 11/04/2024 4:08 PM EDT [facility]afael [facility] BLOOD ORDERABLES Final R esult Performing Organization Address [facility] Co de Phone Number [facility] [address] [place] [phone] * (ABNORMAL) Sed Rate by Modified Melindaren (11/04/2024 2:34 PM EDT) Pathologist [facility] Erythrocyte Sedimentation Rate 23(H) 0 - 15 MM/HR [facility] Comment:Patients with polycy themia and many hemoglobin abnormalitiesmay have depressed sed rates whereas patients with anemiamay have elevated sed rates. Blood Venous blood specimen / Unknown 11/04/2024 2:34 PM EDT 11/04/2024 4:08 PM EDT Natalee Matt LAB BLOOD ORDERABLES Final R esult Performing Organization Address [facility] Co de Phone Number [facility] [address] [place] [phone] * (ABNORMAL) CBC (11/04/2024 2:34 PM EDT) Pathologist [facility] White Blood Count 12.4(H) 4.8 - 10.8 X10*3/uL [facility] Red Blood Count 3.87(L) 4.60 - 5.80 X10*6/uL [facility] Hemoglobin 12.6(L) 14.0 - 18.0 g/dl [facility] Hematocrit 36.9(L) 42.0 - 52.0 % [facility] Mean Corpuscular Volume 95.3 80.0 - 98.0 fL [facility] Mean Corpuscular Hemoglobin 32.6 27.0 - 33.0 pg [facility] Mean Corpuscular HGB Conc 34.1 31.0 - 36.0 g/dl [facility] Red Cell Distribution Width 13.2 11.0 - 16.0 % [facility] Platelet Count 287 160 - 400 X10*3/uL [facility] Mean Platelet Volume 10.8 9.4 - 12.4 fL [facility] NRBC Pct Auto 0.0 0.0 - 0.2 /100WBC [facility] NRBC Abs Auto 0.000 0.0 - 0.012 X10*3/uL [facility] Blood Venous blood specimen / Unknown 11/04/2024 2:34 PM EDT 11/04/2024 4:08 PM EDT Natalee SCL Elements acquired by [employer] ElectricyoanaPark[facility] LAB BLOOD ORDERABLES Final R esult Performing Organization Address City/[facility]/ZIP Co de Phone Number [facility] [address] [place] [phone] * (ABNORMAL) C-reactive Protein (11/04/2024 2:34 PM EDT) [facility] C Reactive Protein 0.85(H) < or = 0.50 mg/dL [facility] Blood Venous blood specimen / Unknown 11/04/2024 2:34 PM EDT 11/04/2024 4:08 PM EDT Natalee SoPost LAB BLOOD ORDERABLES Final R esult Performing Organization Address City/[facility]/ZIP Co de Phone Number [facility] [address] [place] [phone] * (ABNORMAL) FUNMILAYO Screen,IFA, with Reflex to Titer and Pattern (11/04/2024 2:34 PM EDT) Pathologist [facility] Anti Nuclear Antibody Screen POSITIVE (A) NEGATIVE [facility] Comment:FUNMILAYO IFA is a first l ine screen for detecting thepresence of up to approximately 150 autoantibodies invarious autoimmune diseases. A positive FUNMILAYO IFA resultis suggestive of autoimmune disease and reflexes totiter and pattern. Further laboratory testing may beconsidered if clinically indicated.For additional information, please refer [email or web address] [email or web address]/[email or web address](This link is being provided for informational/educational purposes only.) FUNMILAYO Titer 1:80(A) titer [facility] Comment:A low level FUNMILAYO tite r may be present in pre-clinicalautoimmune diseases and normal individuals. Reference Range <1:40 Negative 1:40-1:80 Low Antibody Level >1:80 Elevated Antibody Level FUNMILAYO Pattern (A) [facility] Comment:Nuclear, Dense Fine Speckled Abnormal Flag: ADense fine speckled pattern is seen in normalindividuals and rarely associated with systemic lupuserythematosis (SLE), Sjogren's syndrome and systemicsclerosis.AC-2: Dense Fine SpeckledInternational Consensus on FUNMILAYO Patterns(https://doi.org/10.1515/ewyj-4813-0199)THIS TEST WAS PERFORMED AT:[employer] [place] [phone] HOWELL MD FUNMILAYO TITER 2 (REF LAB) [facility] FUNMILAYO Pattern 2 [facility] FUNMILAYO TITER 3 [facility] FUNMILAYO PATTERN 3 [facility] Blood Venous blood specimen / Unknown 11/04/2024 2:34 PM EDT 11/04/2024 4:08 PM EDT us Natalee Matt DO LAB BLOOD ORDERABLES Final R esult [facility] [address] [place] [phone] * TSH (11/04/2024 2:34 PM EDT) Thyroid Stimulating Hormone 0.96 0.32 - 4.0 uIU/mL [facility] Comment:TSH 3rd Generation ( [facility]) Blood Venous blood specimen / Unknown 11/04/2024 2:34 PM EDT 11/04/2024 4:08 PM EDT Natalee Edmondsfany DO LAB BLOOD ORDERABLES Final R esult Performing Organization Address City/[facility]/ZIP Co de Phone Number [facility] [address] [place] [phone] * T4, Free (11/04/2024 2:34 PM EDT) Free T4 (Free Thyroxine) 0.95 0.71 - 1.85 ng/dL [facility] Blood Venous blood specimen / Unknown 11/04/2024 2:34 PM EDT 11/04/2024 4:08 PM EDT Natalee Vernell DO LAB BLOOD ORDERABLES Final R esult Performing Organization Address City/[facility]/ZIP Co de Phone Number [facility] [address] [place] [phone] * Hemoglobin A1c (11/04/2024 2:34 PM EDT) Hemoglobin A1c 6.0 <6.0 % [facility] Comment:Hemoglobin A1C Refer ence Range Adults: 4.8 - 6.0 % Non diabetic: < 6.0 % Goal: < 7.0 %Additional Action Suggested: > 8.0 %Note: Hemoglobin A1c results are invalid for patients with abnormal amounts of HbF. Blood transfusions may impact the HbA1c concentration in the patient sample. Estimated Average Glucose 126 mg/dL [facility] Comment:eAG = Estimated ave rage glucose which is %A1C expressed asaverage glucose, using the formula of the T7A-UfiniiuXcvtjna Glucose study (ADAG), Diabetes Care, Vol.31,#8,2007 Blood Venous blood specimen / Unknown 11/04/2024 2:34 PM EDT 11/04/2024 4:08 PM EDT Natalee Vernell DO LAB BLOOD ORDERABLES Final R esult Performing Organization Address City/[facility]/ZIP Co de Phone Number [facility] [address] [place] [phone] * Hepatic Function Panel (11/04/2024 2:34 PM EDT) Bilirubin, Total 0.6 0.0 - 1.0 mg/dL [facility] Bilirubin, Direct 0.2 0.0 - 0.5 mg/dL [facility] Aspartate Amino Transferase 31 5 - 37 U/L [facility] Alanine Aminotransferase 17 0 - 40 U/L [facility] Total Protein 7.8 6.5 - 8.0 g/dL [facility] Albumin Level 4.7 3.5 - 5.0 g/dL [facility] Alkaline Phosphatase 66 39 - 117 U/L [facility] Blood Venous blood specimen / Unknown 11/04/2024 2:34 PM EDT 11/04/2024 4:08 PM EDT Natalee Edmondsfany DO LAB BLOOD ORDERABLES Final R esult Performing Organization Address [facility] Co de Phone Number [facility] [address] [place] [phone] * (ABNORMAL) Lipid Panel, Standard (11/04/2024 2:34 PM EDT) Triglycerides 165(H) <150 mg/dL [facility] Comment:Desirable Triglyceri de: less than 150 mg/dLBorderline High Triglyceride 150-199 mg/dLHigh Triglyceride: 200-499 mg/dLVery High Triglyceride: greater than or equal to 5OO mg/dL Cholesterol 144 <200 mg/dL [facility] Comment:Desirable Cholestero l: less than 200 mg/dLBorderline High Cholesterol: 200-239 mg/dLHigh Cholesterol: greater than 239 mg/dL LDL Cholesterol Calculated 78 <100 mg/dL [facility] Comment:Desirable LDL: less than 100 mg/dLNear Optimal/Above Optimal LDL: 110- 129 mg/dLBorderline High LDL: 130-159 mg/dLHigh LDL: 160-189 mg/dLVery High LDL: greater than or equal to 190 mg/dL HDL Cholesterol 33(L) >40 mg/dL [facility] Comment:Desirable HDL: great er than 40 mg/dL Note: This HDL assay may give artificially low results in patients with liver disease. Blood Venous blood specimen / Unknown 11/04/2024 2:34 PM EDT 11/04/2024 4:08 PM EDT us Natalee Matt DO LAB BLOOD ORDERABLES Final R esult [facility] [address] [place] [phone] * (ABNORMAL) Basic Metabolic Panel (11/04/2024 2:34 PM EDT) Sodium 140 135 - 145 mmol/L [facility] Potassium 3.6 3.3 - 5.1 mmol/L [facility] Chloride 104 96 - 108 mmol/L [facility] Carbon Dioxide 27 22 - 29 mmol/L [facility] Anion Gap 13 12 - 20 [facility] Urea Nitrogen (BUN) 7(L) 9 - 16 mg/dL [facility] Creatinine, Serum 1.21 0.5 - 1.4 mg/dL [facility] Estimated Glomerular Filt Rate >60 [facility] Comment:Chronic Kidney Disea se: Estimated GFR < 60 mL/min/1.35e0Dpittl Kidney Disease: Estimated GFR < 15 mL/min/1.73m2 Glucose 187(H) 60 - 115 mg/dL [facility] Calcium 9.6 8.4 - 10.2 mg/dL [facility] Blood Venous blood specimen / Unknown 11/04/2024 2:34 PM EDT 11/04/2024 4:08 PM EDT Natalee Matt DO LAB BLOOD ORDERABLES Final R esult [facility] [address] [place] [phone] * (ABNORMAL) POCT Urinalysis (10/14/2024 12:30 [...] Media Lot # [id number] Lot# Expiration Date [id number] Urine 10/14/2024 12:3 0 PM EDT Natalee Matt DO POINT OF CARE TEST ENTER/MEHNAZ T ORDERABLES Final Result * Culture, Urine, Routine (10/14/2024 12:20 PM EDT) Urine Urine specimen obtained by clean catch procedure / Unknown 10/14/2024 12:20 PM EDT 10/14/2024 4:40 PM EDT Comment:UACC Narrative [facility] - 10/16/2024 11:16 AM EDT Urine Culture Report Result Urine Culture 10,000 to 50,000 cfu/ml Urine Culture Mixed bacterial cuate characteristic of Urine Culture urogenital contamination. Specimen Source: Urine clean catch Natalee Matt DO LAB MICROBIOLOGY - GENERAL O RDERABLES Final Result [facility] [address] [place] [address] [phone] * Chlamydia/N. Gonorrhoeae, PCR, Urine (10/14/2024 12:17 PM EDT) CT PCR, Urine NOT DETECTED Not Detect. [facility] Comment:A not detected test result does [...] NG PCR, Urine NOT DETECTED Not Detect. [facility] Comment:A not detected test result does [...] 12:17 PM EDT 10/14/2024 4:41 PM EDT us Natalee Matt DO LAB URINE ORDERABLES Final R esult [facility] [address], [place] [phone] * XR Hip 2 or 3 Views Right (10/14/2024 11:42 AM EDT) Anatomical Region Laterality Modality Lower Extremities, Hip Right Radiograp hic Imaging 10/14/2024 11:4 2 AM EDT Narrative 10/14/2024 12:36 PM EDT [facility] [address] [place] [address] XRay Report Signed Patient: Dutch Royal MR#: [id number] 72 : 1960 Acct:[id number] Age/Sex: 64 / M ADM Date: 10/14/24 [facility] Att[facility] Dr: Natalee Matt DO Ordering Physician: Natalee Matt DO Date of Service: 10/14/24 Procedure(s): XR hip RT min 2V Accession Number(s): [id number] cc: Natalee Matt DO EXAMINATION: XR HIP, [...] Wild Sierra MD 10/14/2024 12:33 PM EDT Dictated By: Wild Simon MD Signed By: <Electronically signed by Wild Haque MD in OV> 10/14/24 1233 DD/ 1142 TD/TT: 10/14/24 1229 Armament Mechanic: Procedure Note Donotuseinterpreter, Image - 10/14/2024 [facility] [address] [place] [address] XRay Report Signed Patient: Dutch Royal LMR#: [id number] 72 : 1960Acct:[id number] Age/Sex: 64 / MADM Date: 10/14/24 [facility] Att[facility] Dr: Natalee Matt DO Ordering Physician: Natalee Matt DO Date of Service: 10/14/24 Procedure(s): XR hip RT min 2V Accession Number(s): [id number] cc: Natalee Matt DO EXAMINATION: XR HIP, [...] 10/14/24 1233 DD/ 1142 TD/TT: 10/14/24 1229 Armament Mechanic: Natalee Matt DO IMG XR PROCEDURES Final Resu lt * (ABNORMAL) POCT HGB A1C (10/14/2024 11:41 AM EDT) Hemoglobin A1C 5.8(A) 4.0 - 5.7 % QC Media Lot # [id number] Lot# Expiration Date Blood 10/14/2024 11:4 1 AM EDT Natalee Matt DO POINT OF CARE TEST ENTER/MEHNAZ T ORDERABLES Final Result * POCT Glucose (10/14/2024 11:40 AM EDT) Glucose Blood, POC 113 60 - 200 mg/dL QC Media Lot # [id number] Lot# Expiration Date Blood Capillary blood specimen / Unknown 10/14/2024 11:40 AM EDT Natalee Matt DO POINT OF CARE TEST ENTER/MEHNAZ T ORDERABLES Final Result * Colonoscopy (11/02/2022) Colonoscopy Normal Normal Narrative Viri Tee - 11/02/2022 Repeat Colonoscopy in 3-4 years due to polyps and fair prep or earlier if clinically indicated .See external hospital admission note on Historical Provider HEALTH MAINTENANCE Final Result from Last 3 Months or Most Recently Relevant to Health Maintenance Insurance [facility]LY [facility] < [address] [facility] Care Teams Ceramic Artist Relationship Specialty Start Date End Date Natalee Matt DO [address] [place] [address] PCP - General Family Medicine 07/13/11 [facility] 11/16/15
--- OUTSIDE RECORDS SUMMARY | 2024-11-20 16:43 | XMS_ITS | Encounter Summary ---
Author Organization [employer] Address 75 [facility] 7t [place] [address] Care Team Providers Care Projector Booth Operator Name Role Phone Natalee Matt DO Primary Care Provider + [phone] Reason for Visit * Reason Comments Med Refill Encounter Details Date Type Department Care Team ([facility] st Contact Info) Description 05/27/2022 Refill [facility] MEDICINE [address] [place] [address] [facility] [address] [place] [address] Social History Tobacco Use Types Packs/Day Years [...] documented as of this encounter Care Teams Projector Booth Operator Relationship Specialty Start Date End Date Natalee Matt DO [address] [place] [address] PCP - General Family Medicine 07/13/11 [facility] 11/16/15 documented as of this encounter
--- OUTSIDE RECORDS SUMMARY | 2024-11-20 16:43 | XMS_ITS | Encounter Summary ---
Author Organization [employer] Address 75 [facility] [address]t h Floor [address] Care Team Providers Care Administrative Fellow Name Role Phone Natalee Matt DO Primary Care Provider + [phone] Reason for Visit * Reason Comments Med Refill Encounter Details Date Type Department Care Team ([facility] st Contact Info) Description 01/03/2023 Refill [facility] [address] [place], [place] [phone] Natalee Matt DO [address] [place], [place] [phone] Social History Tobacco Use Types Packs/Day Years [...] the past 12 months, has t he [employer] oil or water company threatened to shut [...] documented as of this encounter Care Teams Administrative Fellow Relationship Specialty Start Date End Date Natalee Matt DO [address] [place] [address] PCP - General Family Medicine 07/13/11 [facility] 11/16/15 documented as of this encounter
--- OUTSIDE RECORDS SUMMARY | 2024-11-20 16:43 | XMS_ITS | Clinical Summary ---
Author Organization [facility] Address [address] [place] [address] Phone Care Team Providers Care Blade Grinder Name Role Phone Natalee Matt DO Primary Care Provider [phone] Social History Tobacco Use Types Packs/Day Years Used Date Smoking Tobacco: Never Assessed Sex and Gender Information Value Date Recorded Sex Assigned at Not on file Legal Sex Male 1:55 PM EST Gender Identity Not on file Sexual Orientation Not on file Plan of Treatment Health Maintenance Due Date Last Done Comments Colorectal Cancer Screening: Colonoscopy 1960 DTaP,Tdap,and Td Vaccines (1 - Tdap) 02/17/1979 Pneumococcal Vaccine: 50+ Ye ars (1 of 2 - PCV) 02/17/1979 Zoster Vaccines (1 of 2) 02/17/2010 Cholesterol Screening (Lipid Panel) 01/26/2024 HIV Screening 01/26/2024 Hepatitis C Screening [...] patient's age to complete this topic Insurance MEDICARE Member Subscriber Plan / Payer (Ef fective 2024-Present) Name:Dutch Royal Relation to Subscriber:Self Name:Dutch Royal Payer ID:[id number] Group ID:Not on file Type:Not on file Address: [place] [address] [place] [phone] Care Teams Blade Grinder Relationship Specialty Start Date End Date Natalee Matt DO [address] [place] [address] PCP - General Family Medicine 01/26/24
--- OUTSIDE RECORDS SUMMARY | 2024-11-20 16:43 | XMS_ITS | Encounter Summary ---
Author Organization [employer] Address 75 [facility] 7t [place] [address] Care Team Providers Care Wedding Transportation Driver Name Role Phone Natalee Matt DO Primary Care Provider + [phone] Reason for Visit * Reason Onset Date Comments Durable Medical Equipment 10/18/2024 Encounter Details Date Type Department Care Team ([facility] st Contact Info) Description 10/18/2024 Telephone [facility] MEDICINE [address] [place], [place] [phone] Natalee Matt DO [address] [place], [place] [phone] Durable Medical Equipment Social History Tobacco Use [...] - 10/18/2024 9:49 AM EDT Tc from [facility] requesting a new scrip for DME - nebulizer machine To be deliver documented in this encounter Plan of Treatment Not on file documented as of this encounter Visit Diagnoses Not on filedocumented in this encounter Additional Health Concerns Assessment Noted Time PHQ-9 Depression Total Score: 5 11/20/19 24 10:07 AM EDT documented as of this encounter Care Teams Wedding Transportation Driver Relationship Specialty Start Date End Date Natalee Matt DO [address] [place] [address] PCP - General Family Medicine 07/13/11 [facility] 11/16/15 documented as of this encounter
--- OUTSIDE RECORDS SUMMARY | 2024-11-20 16:43 | XMS_ITS | Encounter Summary ---
Author Organization [employer] Address 75 [facility] [address] [place] [address] Care Team Providers Care Industrial Psychologist Name Role Phone Natalee Matt DO Primary Care Provider + [phone] Reason for Visit * Reason Onset Date Comments Med Refill 03/28/2022 Encounter Details Date Type Department Care Team ([facility] st Contact Info) Description 03/28/2022 Telephone [facility] MEDICINE [address] [place] [address] Natalee Matt DO [address] [place] [address] Med Refill Social History Tobacco Use Types [...] - 03/28/2022 10:11 AM EST Tc from [place] Nurse for pt requesting med refill on hydrOXYzine HCl (Atarax) 25 MG tablet Please sent to [facility]/pharmacy #[id number] - [place] - [address] [place] [address] documented in this encounter Plan of Treatment Not on file documented as of this encounter Visit Diagnoses Not on filedocumented in this encounter Care Teams Industrial Psychologist Relationship Specialty Start Date End Date Natalee Matt DO [address] [place] [address] PCP - General Family Medicine 07/13/11 [facility] 11/16/15 documented as of this encounter
--- OUTSIDE RECORDS SUMMARY | 2024-11-20 16:43 | XMS_ITS | Encounter Summary ---
Author Organization [employer] Address 75 [facility] 7t [place] [address] Care Team Providers Care Topper Press Operator Name Role Phone Natalee Matt DO Primary Care Provider + [phone] Reason for Visit * Reason Onset Date Comments Med Refill 09/30/2024 Encounter Details Date Type Department Care Team ([facility] st Contact Info) Description 09/30/2024 Telephone [facility] MEDICINE [address] [place], [place] [phone] Natalee Matt DO [address] [place], [place] [phone] Med Refill Social History Tobacco Use Types [...] 1:34 PM EDT Medication was sent to [id number] on 08/29/24 with 5 refills. * Telephone Encounter - Luz Maria Bullock - 09/30/2024 1:31 PM EDT TC from pt requesting medication refill. Medications needing refill : fluticasone furoate (Arnuity Ellipta) 100 MCG/ACT inhaler To be sent to: [facility]/pharmacy #[id number] - [address] documented in this encounter Plan of Treatment Not on file documented as of this encounter Visit Diagnoses Not on filedocumented in this encounter Additional Health Concerns Assessment Noted Time PHQ-9 Depression Total Score: 5 11/20/19 24 10:07 AM EDT documented as of this encounter Care Teams Topper Press Operator Relationship Specialty Start Date End Date Natalee Matt DO [address] [place] [address] PCP - General Family Medicine 07/13/11 [facility] 11/16/15 documented as of this encounter
--- OUTSIDE RECORDS SUMMARY | 2024-11-20 16:43 | XMS_ITS | Encounter Summary ---
Author Organization [employer] Address 75 [facility] 7t [place] [address] Care Team Providers Care Forensic Pathologist Name Role Phone Natalee Matt DO Primary Care Provider + [phone] Reason for Visit * Reason Onset Date Comments fyi 10/10/2024 Encounter Details Date Type Department Care Team ([facility] st Contact Info) Description 10/10/2024 Telephone [facility] MEDICINE [address] [place], [place] [phone] Natalee Matt DO [address] [place], [place] [phone] fyi Social History Tobacco Use Types Packs/Day [...] 8:17 AM EDT Tc from Dariela at [facility] calling to notify that pt has refuced trulicity the last 2 weeks and states he will think about it for next week. Contact [facility] [phone] documented in this encounter Plan of Treatment Not on file documented as of this encounter Visit Diagnoses Not on filedocumented in this encounter Additional Health Concerns Assessment Noted Time PHQ-9 Depression Total Score: 5 11/20/19 24 10:07 AM EDT documented as of this encounter Care Teams Forensic Pathologist Relationship Specialty Start Date End Date Natalee Matt DO [address] [place] [address] PCP - General Family Medicine 07/13/11 [facility] 11/16/15 documented as of this encounter
--- OUTSIDE RECORDS SUMMARY | 2024-11-20 16:43 | XMS_ITS | Encounter Summary ---
Author Organization [employer] Address 75 [facility] 7t [place] [address] Care Team Providers Care Storage Battery Tester Name Role Phone Natalee Matt DO Primary Care Provider + [phone] Reason for Visit * Reason Onset Date Comments Call Back Request 04/11/2023 Encounter Details Date Type Department Care Team ([facility] st Contact Info) Description 04/11/2023 Telephone [facility] MEDICINE [address] [place], [place] [phone] Natalee Matt DO [address] [place], [place] [phone] Call Back Request Social History Tobacco Use [...] 04/11/2023 12:09 PM EST Return T/C to [facility] for below message. Kulwinder states pt. Was [...] - 04/11/2023 9:39 AM EST Tc from [place] with [facility] requesting to speak with nurse in regards to pt diabetes. States on Monday pt had 3 cups of coffee with sugar, shrimp, and a cup of soda. Pt sugar levels came out to be 422 but Pt is asymptomatic Please contact kulwinder at [phone] documented in this encounter Plan of Treatment Not on file documented as of this encounter Visit Diagnoses Not on filedocumented in this encounter Additional Health Concerns Assessment Noted Time PHQ-9 Depression Total Score: 0 09/10/19 9:07 AM EDT documented as of this encounter Care Teams Storage Battery Tester Relationship Specialty Start Date End Date Kristyn Mattfer, DO [address] [place] [address] PCP - General Family Medicine 07/13/11 [facility] 11/16/15 documented as of this encounter
--- OUTSIDE RECORDS SUMMARY | 2024-11-20 16:43 | XMS_ITS | Encounter Summary ---
Author Organization [employer] Address 75 [facility] 7t [place] [address] Care Team Providers Care Forest Fire Fighters Dispatcher Name Role Phone Natalee Matt DO Primary Care Provider + [phone] Reason for Visit * Reason Comments Med Change Request Encounter Details Date Type Department Care Team ([facility] Contact Info) Description 10/23/2024 Refill [facility] MEDICINE [address] [place], [place] [phone] Ely Peterson MD [address] [place], [place] [phone] Social History Tobacco Use Types Packs/Day Years [...] documented as of this encounter Care Teams Forest Fire Fighters Dispatcher Relationship Specialty Start Date End Date Natalee Matt DO [address] [place] [address] PCP - General Family Medicine 07/13/11 [facility] 11/16/15 documented as of this encounter
--- OUTSIDE RECORDS SUMMARY | 2024-11-20 16:43 | XMS_ITS | Encounter Summary ---
Author Organization [employer] Address 75 [facility] 7t [place] [address] Care Team Providers Care Alcohol Rubber Name Role Phone Natalee Matt DO Primary Care Provider + [phone] Encounter Details Date Type Department Care Team ([facility] st Contact Info) Description 02/28/2022 Orders Only [facility] MEDICINE [address] [place] [address] Amanda Denton LPN Social History Tobacco Use [...] on filedocumented in this encounter Care Teams Alcohol Rubber Relationship Specialty Start Date End Date Natalee Matt DO [address] [place] [address] PCP - General Family Medicine 07/13/11 [facility] 11/16/15 documented as of this encounter
--- OUTSIDE RECORDS SUMMARY | 2024-11-20 16:43 | XMS_ITS | Encounter Summary ---
Author Organization [employer] Address 75 [facility] 7t [place] [address] Care Team Providers Care Services Delivery Driver Name Role Phone Natalee Matt DO Primary Care Provider + [phone] Reason for Visit * Reason Comments Med Change Request Encounter Details Date Type Department Care Team ([facility] Contact Info) Description 03/28/2024 Refill [facility] MEDICINE [address] [place], [place] [phone] Natalee Matt DO [address] [place], [place] [phone] Social History Tobacco Use Types Packs/Day Years [...] documented as of this encounter Care Teams Services Delivery Driver Relationship Specialty Start Date End Date Natalee Matt DO [address] [place] [address] PCP - General Family Medicine 07/13/11 [facility] 11/16/15 documented as of this encounter
--- OUTSIDE RECORDS SUMMARY | 2024-11-20 16:43 | XMS_ITS | Encounter Summary ---
Author Organization [employer] Address 75 [facility] 7t [place] [address] Care Team Providers Care Clinical Application Consultant Name Role Phone Natalee Matt DO Primary Care Provider + [phone] Reason for Visit * Reason Comments Med Change Request Encounter Details Date Type Department Care Team ([facility] Contact Info) Description 09/11/2024 Refill [facility] MEDICINE [address] [place], [place] [phone] Natalee Matt DO [address] [place], [place] [phone] Social History Tobacco Use Types Packs/Day Years [...] documented as of this encounter Care Teams Clinical Application Consultant Relationship Specialty Start Date End Date Natalee Matt DO [address] [place] [address] PCP - General Family Medicine 07/13/11 [facility] 11/16/15 documented as of this encounter
--- OUTSIDE RECORDS SUMMARY | 2024-11-20 16:43 | XMS_ITS | Encounter Summary ---
Author Organization [employer] Address 75 [facility] 7t [place] [address] Care Team Providers Care Oracle Security Consultant Name Role Phone Natalee Matt DO Primary Care Provider + [phone] Reason for Visit * Reason Comments Med Refill Encounter Details Date Type Department Care Team ([facility] st Contact Info) Description 03/20/2023 Refill [facility] MEDICINE [address] [place], [place] [phone] Natalee Matt DO [address] [place], [place] [phone] Chronic neck and back pain Social History [...] documented as of this encounter Care Teams Oracle Security Consultant Relationship Specialty Start Date End Date Natalee Matt DO [address] [place] [address] PCP - General Family Medicine 07/13/11 [facility] 11/16/15 documented as of this encounter
--- OUTSIDE RECORDS SUMMARY | 2024-11-20 16:43 | XMS_ITS | Encounter Summary ---
Author Organization [employer] Address 75 [facility] 7t [place] [address] Care Team Providers Care Art Department Head Name Role Phone Natalee Matt DO Primary Care Provider + [phone] Reason for Visit * Reason Onset Date Comments FYI 06/14/2023 Encounter Details Date Type Department Care Team ([facility] st Contact Info) Description 06/14/2023 Telephone [facility] MEDICINE [address] [place], [place] [phone] Natalee Matt DO [address] [place], [place] [phone] FYI Social History Tobacco Use Types Packs/Day [...] EDT Tc from [facility] calling to report elevated BP before medication administration 132/99 with no cardiac symptoms documented in this encounter Plan of Treatment Not on file documented as of this encounter Visit Diagnoses Not on filedocumented in this encounter Additional Health Concerns Assessment Noted Time PHQ-9 Depression Total Score: 0 09/10/19 9:07 AM EDT documented as of this encounter Care Teams Art Department Head Relationship Specialty Start Date End Date Natalee Matt DO [address] [place] [address] PCP - General Family Medicine 07/13/11 [facility] 11/16/15 documented as of this encounter
--- OUTSIDE RECORDS SUMMARY | 2024-11-20 16:43 | XMS_ITS | Encounter Summary ---
Author Organization [employer] Address 75 [facility] 7t [place] [address] Care Team Providers Care Sheep Farm Worker Name Role Phone Natalee Matt DO Primary Care Provider + [phone] Reason for Visit * Reason Onset Date Comments ER Follow-up 04/11/2023 Encounter Details Date Type Department Care Team ([facility] st Contact Info) Description 04/11/2023 Telephone [facility] MEDICINE [address] [place], [place] [phone] Natalee Matt DO [address] [place], [place] [phone] ER Follow-up Social History Tobacco Use Types [...] AM EST T/C x 1 am to [id number] through [employer] id - [id number] for status check for current ED visit, No answer, Not able to LVM, phone number was belongs to another person. T/C to [id number] through [employer] id - [id number], no answer. Phone number is not active. * Telephone Encounter - Anu Lyons - 04/11/2023 9:37 AM EST Patient calling to report ED visit on : Date: 04/09 [facility] [facility] Seen for: periorbital cellulitis Patient advised will forward to team nurse for follow up Please contact pt at [phone] (P[employer]deinig) documented in this encounter Plan of Treatment Not on file documented as of this encounter Visit Diagnoses Not on filedocumented in this encounter Additional Health Concerns Assessment Noted Time PHQ-9 Depression Total Score: 0 09/10/19 9:07 AM EDT documented as of this encounter Care Teams Sheep Farm Worker Relationship Specialty Start Date End Date Natalee Matt DO [address] [place] [address] PCP - General Family Medicine 07/13/11 [facility] 11/16/15 documented as of this encounter
--- NOTE | 2024-11-20 20:20 | ED_ITS ---
HPI - General Adult General Chief complaint: ETOH/Substance Use Stated complaint: anxiety from weed Time Seen by Provider: 11/20/24 20:18 Source: patient Mode of arrival: ambulatory Limitations: no limitations History of Present Illness ED Provider: Dr. Rodrigez HPI narrative: 64-year-old male presented hospital today feeling anxious after smoking weed. Patient stated it was too strong is causing some headaches. Patient states he feels better now requesting to be discharged. denies any chest pain denies any shortness of breath Related Data Home Medications ?Medication ?Instructions ?Recorded ?Confirmed acetaminophen 500 mg tablet 500 mg PO Q6H PRN 12/01/20 04/28/22 (Tylenol Extra Strength) metoprolol tartrate 50 mg tablet 50 mg PO BID 12/01/20 04/28/22 Previous Rx's ?Medication ?Instructions ?Recorded albuterol sulfate 2.5 mg/3 mL 2.5 mg (3 mL) inhalation Q4H PRN 03/06/20 (0.083 %) solution for nebulization shortness of breat h or wheezing #75 mL prednisone 10 mg tablets in a dose 10 mg PO PER PKG DI R #48 ea 03/06/20 pack bisacodyl 5 mg tablet,delayed 10 mg (2 x 5 mg) PO ONCE 04/28/22 release (Dulcolax (bisacodyl)) colonoscopy prep 1 day #2 tabs polyethylene glycol 3350 17 238 g PO ONCE 1 day #238 g lyubov 04/28/22 gram/dose oral powder (Miralax) amoxicillin 875 mg-potassium 1 tab PO BID #14 tabs clavulanate 125 mg tablet erythromycin 5 mg/gram (0.5 %) eye 0.5 inch ophthalmic (eye) BID 7 04/09/23 ointment days #3.5 grams amoxicillin 875 mg-potassium 1 tab PO BID 7 days #14 t abs 02/03/24 clavulanate 125 mg tablet Allergies Allergy/AdvReac Type Severity Reaction Status Date / Time haloperidol (From HALDOL) Allergy Severe SWELLING Verified 11/20/24 16:35 TONGUE aspirin (ASPIRIN) Allergy Intermediate GI UPSET Verified 11/20/24 16:35 benztropine (From COGENTIN) Allergy Unknown UNKNOWN Verified 11/20/24 16:35 simvastatin (SIMVASTATIN) Allergy Unknown UNKNOWN Verified 11/20/24 16:35 Review of Systems Review of Systems: Pertinent review of systems as mentioned in HPI. All other system otherwise negative. [facility] Past Medical History [facility] Narrative: Medical history as mentioned in HPI Medical History Hepatitis C Pulmonary nodules KRISTY (obstructive sleep apnea) Hypertension Schizophrenia Asthma Surgical History Hx of colonoscopy Social History Social History Patient Tobacco Use Status: Former Tobacco user Advance Directives: No Advance Directives Information Provided: Yes Do you have a plan to hurt others: No Plan Physical Exam ED Exam Exam: General: Pleasant, no distress, interacting appropriately Head: Normacephalic, atraumatic ENT: oral mucosa moist, neck supple, no tracheal deviation Cardiovascular: regular rate, regular rhythm, no murmurs, rubbing, gallops Respiratory: Bilateral wheezing Neurological: Awake and alert, no facial droop noted Skin: Warm and dry Psychiatric: Appropriate mood and thoughts Vital Signs: Vital Signs - 24 hr 11/20/24 16:32 Temperature 97.9 F Pulse Rate 104 H Respiratory Rate 18 Blood Pressure 138/92 H Pulse Oximetry 97 Oxygen Delivery Method Room Air BMI result Body Mass Index 28.7 Medical Decision Making Medical Decision Making [facility] Narrative: 64-year-old male presented hospital today for evaluation of headaches, anxiety after smoking weed. Patient appears to be medical stable on my exam. He has not complain of any chest have bilateral wheezing likely secondary to chronic smoking. He does have inhaler at home. Patient will be discharged at this time. 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 discard remainder erythromycin 5 mg/gram (0.5 %) ointment 0.5 inch ophthalmic (eye) BID 7 Days Qty: 3.5 0RF amoxicillin-pot clavulanate 875-125 mg tablet 1 tab PO BID Qty: 14 0RF amoxicillin-pot clavulanate 875-125 mg tablet 1 tab PO BID 7 Days Qty: 14 0RF acetaminophen [Tylenol Extra Strength] 500 mg tablet 500 mg PO Q6H PRN metoprolol tartrate 50 mg tablet 50 mg PO BID bisacodyl [Dulcolax (bisacodyl)] 5 mg tablet,delayed release (DR/EC) 10 mg PO ONCE 1 Days Qty: 2 0RF Rx Instructions: Take 2 tablets by mouth at 12:00pm the day before your procedure. polyethylene glycol 3350 [Miralax] 17 gram/dose powder 238 g PO ONCE 1 Days Qty: 238 0RF Rx Instructions: Take as directed by mouth the day before your procedure. Print Language: Turkish
[2024-11-20 20:26] VITALS: BP 127/85; PULSE 78; RESP 16; TEMP 36.6; O2SAT 97
[2024-11-20 20:32] VITALS: BP 127/85; PULSE 78; RESP 16; TEMP 36.6; O2SAT 97
== END 2024-11-20 20:33 | disposition home or self-care (01) ==
PROVIDERS: Emergency Provider Student in an Organized Health Care Education/Training Program; PCP Family Medicine
DX: F19.980 Other psychoactive substance use, unspecified with psychoactive substance-induced anxiety disorder (principal); R51.9 Headache, unspecified
CPT/HCPCS: 99282; 99284

== ENCOUNTER 2025-01-20 09:57 | Outpatient (AMB) | payer OTHER, SELFPAY ==
[2025-01-20 10:03] VITALS: BP 128/78; PULSE 72; O2SAT 96; BMI 30.3
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
--- OUTSIDE RECORDS SUMMARY | 2025-01-20 12:04 | XMS_ITS | Encounter Summary ---
Author Organization [employer] Address [address] [facility] [address] [place] [address] Care Team Providers Care Snailer Name Role Phone Natalee Matt DO Primary Care Provider + [phone] Reason for Visit * Reason Onset Date Comments Medication Question 11/25/2022 Concern Patient 11/25/2022 Encounter Details Date Type Department Care Team ([facility] st Contact Info) Description 11/25/2022 Telephone [facility] MEDICINE [address] [place] [address] Natalee Matt DO [address] [place], [place] [phone] Medication Question; Concern Patient Social History Tobacco [...] 11/25/2022 10:52 AM EDT TC returned to [facility] [phone] who reports she is concerned the pt is medication seeking. [place] reports she went to see the pt and his significant other reported to [facility] ([facility]) that the pt went to [facility] yesterday and received a script for tramadol [...] his cane however when he comes to [facility] he will use his cane. [facility]NA also [...] was recently atthe urgent care at the [facility], for supposedly for some pain on his leg and was prescribe tramadol but he didn't have any pain all day until he got into [facility]. [facility] is concern due to pt already being in so many medications and does not know if it was a way for pt to obtain more medications. Please contact [employer] at [phone] [facility] states she has a meeting 11:00 to 12:30 pm to please call afterwards. documented in this encounter Plan of Treatment Not on file documented as of this encounter Visit Diagnoses Not on filedocumented in this encounter Additional Health Concerns Assessment Noted Time PHQ-9 Depression Total Score: 0 09/10/19 9:07 AM EDT documented as of this encounter Care Teams Snailer Relationship Specialty Start Date End Date Natalee Matt DO [address] [place] [address] PCP - General Family Medicine 07/13/11 [facility] 11/16/15 documented as of this encounter
--- OUTSIDE RECORDS SUMMARY | 2025-01-20 12:04 | XMS_ITS | Encounter Summary ---
Author Organization [employer] Address [address] [facility] [address] [place] [address] Care Team Providers Care National Van Owner Operator Name Role Phone Natalee Matt DO Primary Care Provider + [phone] Reason for Visit * Reason Comments Med Refill Encounter Details Date Type Department Care Team ([facility] st Contact Info) Description 01/03/2023 Refill [facility] MEDICINE [address] [place], [place] [phone] Natalee Matt DO [address] [place], [place] [phone] Social History Tobacco Use Types Packs/Day Years [...] the past 12 months, has t he [employer], [employer], oil or water company threatened to shut [...] documented as of this encounter Care Teams National Van Owner Operator Relationship Specialty Start Date End Date Natalee Matt DO [address] [place] [id number] PCP - General Family Medicine 07/13/11 [facility] 11/16/15 documented as of this encounter
--- OUTSIDE RECORDS SUMMARY | 2025-01-20 12:04 | XMS_ITS | Encounter Summary ---
Author Organization [employer] Address [address] [facility] [address] [place] [address] Care Team Providers Care Machine Stripper Cutter Name Role Phone Natalee Matt DO Primary Care Provider + [phone] Reason for Visit * Reason Onset Date Comments Med Refill 01/03/2023 Encounter Details Date Type Department Care Team ([facility] st Contact Info) Description 01/03/2023 Telephone [facility] MEDICINE [address] [place], [place] [phone] Natalee Matt DO [address] [place], [place] [phone] Med Refill Social History Tobacco Use Types [...] - 01/03/2023 2:36 PM EST [facility]; acetaminophen (Tylenol 8 Hour) 650 MG ER tablet baclofen (Lioresal) 10 MG tablet documented in this encounter Plan of Treatment Not on file documented as of this encounter Visit Diagnoses Not on filedocumented in this encounter Additional Health Concerns Assessment Noted Time PHQ-9 Depression Total Score: 0 09/10/19 23 9:07 AM EDT documented as of this encounter Care Teams Machine Stripper Cutter Relationship Specialty Start Date End Date Natalee Matt DO [address] [place] [id number] PCP - General Family Medicine 07/13/11 [facility] 11/16/15 documented as of this encounter
--- OUTSIDE RECORDS SUMMARY | 2025-01-20 12:04 | XMS_ITS | Encounter Summary ---
Author Organization [employer] Address [address] [facility] [address] [place] [address] Care Team Providers Care Crop Farm Helper Name Role Phone Natalee Matt DO Primary Care Provider + [phone] Reason for Visit * Reason Onset Date Comments Med Refill 02/14/2023 Encounter Details Date Type Department Care Team ([facility] st Contact Info) Description 02/14/2023 Telephone [facility] MEDICINE [address] [place], [place] [phone] Natalee Matt DO [address] [place], [place] [phone] Med Refill Social History Tobacco Use Types [...] medication for tomorrow To be sent to: [facility]/pharmacy [address] [place] [address] - [address] [place] [address] documented in this encounter Plan of Treatment Not on file documented as of this encounter Visit Diagnoses Not on filedocumented in this encounter Additional Health Concerns Assessment Noted Time PHQ-9 Depression Total Score: 0 09/10/19 23 9:07 AM EDT documented as of this encounter Care Teams Crop Farm Helper Relationship Specialty Start Date End Date Natalee Matt DO [address] [place] [address] PCP - General Family Medicine 07/13/11 [facility] 11/16/15 documented as of this encounter
--- OUTSIDE RECORDS SUMMARY | 2025-01-20 12:04 | XMS_ITS | Clinical Summary ---
Author Organization [employer] Address [address] [facility] 7[address] [place] [address] Care Team Providers Care Photogrammetric Technician Name Role Phone Natalee Matt DO Primary Care Provider + [phone] Allergies Active Allergy Reactions Criticality Noted Date [...] DOS VECES AL D A 023 Active omeprazole (PriLOSEC) [address] capsule [...] without long-term current use of insulin (HCC) USE TO TEST BLOOD SUGAR ONCE A [...] EVERY DAY 180 capsule 1 025 Active Umeclidinium Tea (Incruse Ellipta) 62.5 MCG/ACT aerosol powderIndicatio ns:Chronic obstructive pulmonary disease, unspecified COPD type (CMS/HCC) ([facility]) Inhale 1 Act (62.5 mcg) Once [...] obstructive pulmonary disease, unspecified COPD type (CMS/HCC) ([facility]) TAKE 3 ML BY NEBULIZATION ROUTE EVERY 6 HOURS NEEDED FOR WHEEZING 90 mL 025 Active tamsulosin (Flomax) 0.4 MG 24 [...] FOR ITCHING 180 tablet 1 025 Active baclofen (Lioresal) 10 MG [...] OR SPLIT. 90 tablet 2 025 Active gabapentin (Neurontin) 100 MG capsuleIndicati ons:Chronic neck and back pain TAKE 1 CAPSULE BY MOUTH 3 TIMES A DAY 90 capsule 025 Active lidocaine (Xylocaine) 5 % ointmentIndicat ions:Closed traumatic nondisplaced fracture of one rib of left side, initial encounter Apply topically if needed in the morning, at noon, and at bedtime for mild pain or moderate pain. 30 g 024 2024 gabapentin (Neurontin) 100 MG capsuleIndicati ons:Chronic neck and back pain TAKE 1 CAPSULE BY MOUTH THREE TIMES A DAY 90 capsule 025 2024 Discontinued Active Problems [...] BID severe pain -advised schedule eval with C PM, contact info given -f/u with [facility] after PM eval -advised contact [facility] if sx change or worsen Osteoarthritis [...] organization. 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 tract symptoms (Primary Dx); Pain of right hip; Positive FUNMILAYO (antinuclear antibody) 12/17/2024 Refill C MEDICINE [address] [place] [address] Natalee Matt DO 12/08/2024 Refill C MEDICINE [address] [place] [address] Natalee Matt DO Chronic neck and back pain 11/25/2024 Refill [facility] MEDICINE [address] [place] [address] Natalee Matt DO Chronic neck and back pain 11/24/2024 Refill [facility] MEDICINE [address] [place] [address] Ely Peterson MD Chronic neck and back pain 11/11/2024 Results Follow-Up [facility] MEDICINE [address] [place] [address] Viktoria Valdivia RN POCT Glucose, POCT HGB A1C, POCT Urinalysis, Additional followed-up results: 19 11/03/2024 Refill [facility]BILE [facility]ACCINE [facility]IN[facility] [address] [place] [address] Natalee Matt DO Benign prostatic hyperplasia, unspecified whether lower urinary tract symptoms present; Pruritus 11/01/2024 Telephone [facility] MEDICINE [address] [place] [address] Natalee Matt DO Call back request 10/28/2024 Refill [facility] MEDICINE [address] [place] [address] Jessica Mcnally MD Chronic neck and back pain 10/23/2024 Refill [facility] MEDICINE [address] [place] [address] Ely Peterson MD from Last 3 Months Immunizations Immunization Administration [...] of 2 - Risk 2-dose series) 02/17/1979 RSV Patients and Patients Aged 60 years or older (1 - Risk 50-74 years 1-dose series) 02/17/2010 Zoster Vaccines (1 of 2) 02/17/2010 Dental Prophylaxis 12/26/2022 06/24/2022 Dental Oral Exam 03/13/2023 09/09/2022 Diabetes: Foot Exam 04/19/2023 04/19/2022 SDOH Screening 06/14/2024 06/15/2023 COVID-19 Vaccine ( season) 2024 11/16/2023, 01/18/2023, 04/04/2022, Additional history exists Influenza Vaccine (#1) 2024 , 11/02/2022, 11/18/2021, [...] Pneumococcal Vaccine: 50+ Years Completed 05/26/2022, 10/21/2011 HIV Screening Completed 11/04/2024, 10/23, 08/05/2019 HIB [...] complication, without long-term current use of insulin ([facility]) FUNMILAYO SCREEN, IFA, W/REFL TITER AND PATTERN Routine 11/04/2024 2:34 PM EDT Type 2 diabetes mellitus without complication, without long-term current use of insulin ([facility]/HCC) Essential hypertension Other hyperlipidemia Schizophrenia, unspecified type [...] hypertension Other hyperlipidemia Schizophrenia, unspecified type (CMS/HCC) KRITSY (obstructive sleep apnea) Chronic obstructive pulmonary disease, [...] urination Pain of right hip Healthcare maintenance HM COLONOSCOPY Routine 11/02/2022 PANORAMIC [...] 25-Hydroxy, Total, Immunoassay (11/04/2024 2:34 PM EDT) [facility] Vitamin D 25-OH Total 54.8 >30 ng/mL [facility] Comment: Health Based Reference Values*< 20 ng/mL Zzoinzdch79-98 ng/mL Insufficient> 30 ng/mL Sufficient*Ilene LOONEY. N [...] ORDERABLES Final R esult Performing Organization Address [facility] Co de Phone Number [facility] [address] [place] [phone] * Hepatitis C Viral RNA, Quantitative, Real-Time PCR (11/04/2024 2:34 PM EDT) Pathologist [facility] Hepatitis C Viral Load <15 NOT DETECTED NOT DETECTED IU/mL [facility] HCV Log PCR <1.18 NOT DETECTED NOT DETECTED Log IU/mL [facility] Comment:For additional infor mation, please refer [email or web address].[employer]/faq/PZX22v1(This link is being provided for informational/educational purposes only.)THIS TEST WAS PERFORMED AT:[employer] [place] [phone] HOWELL MD 11/04/2024 2:34 PM EDT 11/05/2024 11:38 AM EDT Natalee Matt DO LAB BLOOD ORDERABLES Final R esult Performing Organization Address [facility] de Phone Number [facility] [address] [place] [phone] * Albumin, Random Urine W/Creatinine (11/04/2024 2:34 PM EDT) Creatinine, Urine 149.42 mg/dL [facility] Microalbumin Urine 14.0 mg/L [facility] Microalbum Creatinine Ratio Ur 9.3 <30 ug/mg cr [facility] Comment:Albumin/Creatinine R atio Reference Ranges: Normal: < 30 ug/mg creatinine Microalbuminuria: 30 - 300 ug/mg creatinineClinical Albuminuria: > 300 ug/mg creatinine Urine (Urine, Random) 11/04/2024 2:34 PM EDT 11/04/2024 4:07 PM EDT Natalee Edmondsfany DO LAB URINE ORDERABLES Final R esult Performing Organization Address [facility] Co de Phone Number [facility] [address] [place] [phone] * (ABNORMAL) Hepatitis C Antibody with Reflex to HCV, RNA, Quantitative, Real- Time PCR (11/04/2024 2:34 PM EDT) Pathologist [facility] Hepatitis C Antibody Reactive( A) Nonreactive [facility] Comment:Presumptive evidence of antibodies to HCV. Blood Venous blood specimen / Unknown 11/04/2024 2:34 PM EDT 11/04/2024 4:08 PM EDT Natalee Vernell DO LAB BLOOD ORDERABLES Final R esult Performing Organization Address [facility] Co de Phone Number [facility] [address] [place] [phone] * Hepatitis B surface antigen, EIA (11/04/2024 2:34 PM EDT) Pathologist [facility] Hepatitis B Surface Ag Negative Negative [facility] Blood Venous blood specimen / Unknown 11/04/2024 2:34 PM EDT 11/04/2024 4:08 PM EDT Natalee Vernell DO LAB BLOOD ORDERABLES Final R esult Performing Organization Address [facility] Co de Phone Number [facility] [address] [place] [phone] * RPR (Monitor) with Reflex to??Titer (11/04/2024 2:34 PM EDT) Pathologist [facility] RPR (Monitor) w/Refl Titer NON-REACTI VE NON-REACT [place] [facility] Comment:THIS TEST WAS PERFOR MED AT:[employer] [place] [phone] HOWELL MD Rapid Plasma Reagin Ab Titer TNP [facility] Blood Venous blood specimen / Unknown 11/04/2024 2:34 PM EDT 11/04/2024 4:08 PM EDT Natalee Matt DO LAB BLOOD ORDERABLES Final R esult Performing Organization Address City/[facility]/ZIP Co de Phone Number [facility] [address] [place] [phone] * HIV-1/2 Antigen and Antibodies, Fourth Generation, with Reflexes (11/04/2024 2:34 PM EDT) Pathologist [facility] HIV AB/AG Nonreactive Nonreactive [facility] Comment:HIV-1 p24 Ag and/or HIV-1/HIV-2 Ab not detected.A test result that is nonreactive does not exclude thepossibility of exposure to or infection with HIV-1 and/orHIV-2. Nonreactive results in this assay for individualswith prior exposure to HIV-1 and/or HIV-2 may be due toantigen and antibody levels that are below the limit ofdetection of this assay.The [employer] HIV Ag/Ab Combo assay result andsupplemental assay results should be interpreted inconjunction with the patient's clinical presentation,history and other laboratory results. If the results areinconsistent with clinical evidence, additional testing issuggested to confirm the result. Blood Venous blood specimen / Unknown 11/04/2024 2:34 PM EDT 11/04/2024 4:08 PM EDT us Natalee Vernell DO LAB BLOOD ORDERABLES Final R esult Performing Organization Address City/[facility]/ZIP Co de Phone Number [facility] [address] [place] [phone] [phone] * Hepatitis B Surface Antibody, Qualitative (11/04/2024 2:34 PM EDT) ~Hepatitis B Surface Antibody NONREACTIVE Nonreactive [facility] Comment:Nonreactive: < 8.00 mIU/mL Blood Venous blood specimen / Unknown 11/04/2024 2:34 PM EDT 11/04/2024 4:08 PM EDT Natalee Matt LAB BLOOD ORDERABLES Final R esult Performing Organization Address [facility] Co de Phone Number [facility] [address] [place] [phone] * (ABNORMAL) Sed Rate by Modified Westergren (11/04/2024 2:34 PM EDT) Erythrocyte Sedimentation Rate 23(H) 0 - 15 MM/HR [facility] Comment:Patients with polycy themia and many hemoglobin abnormalitiesmay have depressed sed rates whereas patients with anemiamay have elevated sed rates. Blood Venous blood specimen / Unknown 11/04/2024 2:34 PM EDT 11/04/2024 4:08 PM EDT Nataele Edmondsyoanaitzel LAB BLOOD ORDERABLES Final R esult Performing Organization Address [facility] Co de Phone Number [facility] [address] [place] [phone] * (ABNORMAL) CBC (11/04/2024 2:34 PM EDT) White Blood Count 12.4(H) 4.8 - 10.8 X10*3/uL [facility] Red Blood Count 3.87(L) 4.60 - 5.80 X10*6/uL [facility] Hemoglobin 12.6(L) 14.0 - 18.0 g/dl [facility] Hematocrit 36.9(L) 42.0 - 52.0 % [facility] Mean Corpuscular Volume 95.3 80.0 - 98.0 fL [facility] Mean Corpuscular Hemoglobin 32.6 27.0 - 33.0 pg [facility] Mean Corpuscular HGB Conc 34.1 31.0 - 36.0 g/dl [facility] Red Cell Distribution Width 13.2 11.0 - 16.0 % [facility] Platelet Count 287 160 - 400 X10*3/uL [facility] Mean Platelet Volume 10.8 9.4 - 12.4 fL [facility] NRBC Pct Auto 0.0 0.0 - 0.2 /100WBC [facility] NRBC Abs Auto 0.000 0.0 - 0.012 X10*3/uL [facility] Blood Venous blood specimen / Unknown 11/04/2024 2:34 PM EDT 11/04/2024 4:08 PM EDT [facility] BLOOD ORDERABLES Final R esult Performing Organization Address [facility]/ZIP Co de Phone Number [facility] [address] [place] [phone] * (ABNORMAL) C-reactive Protein (11/04/2024 2:34 PM EDT) Pathologist [facility] C Reactive Protein 0.85(H) < or = 0.50 mg/dL [facility] Blood Venous blood specimen / Unknown 11/04/2024 2:34 PM EDT 11/04/2024 4:08 PM EDT Natalee Vernell LAB BLOOD ORDERABLES Final R esult Performing Organization Address [facility]/ZIP Co de Phone Number [facility] [address] [place] [phone] * (ABNORMAL) FUNMILAYO Screen,IFA, with Reflex to Titer and Pattern (11/04/2024 2:34 PM EDT) Pathologist [facility] Anti Nuclear Antibody Screen POSITIVE (A) NEGATIVE [facility] Comment:FUNMILAYO IFA is a first l ine screen for detecting thepresence of up to approximately 150 autoantibodies invarious autoimmune diseases. A positive FUNMILAYO IFA resultis suggestive of autoimmune disease and reflexes totiter and pattern. Further laboratory testing may beconsidered if clinically indicated.For additional information, please refer tohttp://education.[employer] [facility]/faq/GLG410(This link is being provided for informational/educational purposes only.) FUNMILAYO Titer 1:80(A) titer [facility] Comment:A low level FUNMILAYO tite r may be present in pre-clinicalautoimmune diseases and normal individuals. Reference Range <1:40 Negative 1:40-1:80 Low Antibody Level >1:80 Elevated Antibody Level FUNMILAYO Pattern (A) [facility] Comment:Nuclear, Dense Fine Speckled Abnormal Flag: ADense fine speckled pattern is seen in normalindividuals and rarely associated with systemic lupuserythematosis (SLE), Sjogren's syndrome and systemicsclerosis.AC-2: Dense Fine SpeckledInternational Consensus on FUNMILAYO Patterns(https://doi.org/10.1515/ialc-2344-0076)THIS TEST WAS PERFORMED AT:[employer] [place] [phone] HOWELL MD FUNMILAYO Titer 2 TNP [facility] FUNMILAYO Pattern 2 TNP [facility] FUNMILAYO TITER 3 TNP [facility] FUNMILAYO PATTERN 3 TNP [facility] Blood Venous blood specimen / Unknown 11/04/2024 2:34 PM EDT 11/04/2024 4:08 PM EDT Natalee Matt DO LAB BLOOD ORDERABLES Final R esult [facility] [address] [place] [phone] * TSH (11/04/2024 2:34 PM EDT) Thyroid Stimulating Hormone 0.96 0.32 - 4.0 uIU/mL [facility] Comment:TSH 3rd Generation ( [facility]) Blood Venous blood specimen / Unknown 11/04/2024 2:34 PM EDT 11/04/2024 4:08 PM EDT Natalee Matt LAB BLOOD ORDERABLES Final R esult Performing Organization Address City/[facility]/ZIP Co de Phone Number [facility] [address] [place] [phone] * T4, Free (11/04/2024 2:34 PM EDT) Free T4 (Free Thyroxine) 0.95 0.71 - 1.85 ng/dL [facility] Blood Venous blood specimen / Unknown 11/04/2024 2:34 PM EDT 11/04/2024 4:08 PM EDT Natalee Matt LAB BLOOD ORDERABLES Final R esult Performing Organization Address [facility] Co de Phone Number [facility] [address] [place] [phone] * Hemoglobin A1c (11/04/2024 2:34 PM EDT) Hemoglobin A1c 6.0 <6.0 % [facility] Comment:Hemoglobin A1C Refer ence Range Adults: 4.8 - 6.0 % Non diabetic: < 6.0 % Goal: < 7.0 %Additional Action Suggested: > 8.0 %Note: Hemoglobin A1c results are invalid for patients with abnormal amounts of HbF. Blood transfusions may impact the HbA1c concentration in the patient sample. Estimated Average Glucose 126 mg/dL [facility] Comment:eAG = Estimated ave rage glucose which is %A1C expressed asaverage glucose, using the formula of the K4I-OyjkptuPzykkyv Glucose study (ADAG), Diabetes Care, Vol.31,#8,2007 Blood Venous blood specimen / Unknown 11/04/2024 2:34 PM EDT 11/04/2024 4:08 PM EDT Natalee Matt Altia LAB BLOOD ORDERABLES Final R esult Performing Organization Address City/[facility]/ZIP Co de Phone Number [facility] [address] [place] [phone] * Hepatic Function Panel (11/04/2024 2:34 PM EDT) Bilirubin, Total 0.6 0.0 - 1.0 mg/dL [facility] Bilirubin, Direct 0.2 0.0 - 0.5 mg/dL [facility] Aspartate Amino Transferase 31 5 - 37 U/L [facility] Alanine Aminotransferase 17 0 - 40 U/L [facility] Total Protein 7.8 6.5 - 8.0 g/dL [facility] Albumin Level 4.7 3.5 - 5.0 g/dL [facility] Alkaline Phosphatase 66 39 - 117 U/L [facility] Blood Venous blood specimen / Unknown 11/04/2024 2:34 PM EDT 11/04/2024 4:08 PM EDT us Natalee Matt DO LAB BLOOD ORDERABLES Final R esult [facility] [address] [place] [phone] * (ABNORMAL) Lipid Panel, Standard (11/04/2024 2:34 PM EDT) Triglycerides 165(H) <150 mg/dL [facility] Comment:Desirable Triglyceri de: less than 150 mg/dLBorderline High Triglyceride 150-199 mg/dLHigh Triglyceride: 200-499 mg/dLVery High Triglyceride: greater than or equal to 5OO mg/dL Cholesterol 144 <200 mg/dL [facility] Comment:Desirable Cholestero l: less than 200 mg/dLBorderline High Cholesterol: 200-239 mg/dLHigh Cholesterol: greater than 239 mg/dL LDL Cholesterol Calculated 78 <100 mg/dL [facility] Comment:Desirable LDL: less than 100 mg/dLNear Optimal/Above Optimal LDL: 110- 129 mg/dLBorderline High LDL: 130-159 mg/dLHigh LDL: 160-189 mg/dLVery High LDL: greater than or equal to 190 mg/dL HDL Cholesterol 33(L) >40 mg/dL [facility] Comment:Desirable HDL: great er than 40 mg/dL Note: This HDL assay may give artificially low results in patients with liver disease. Blood Venous blood specimen / Unknown 11/04/2024 2:34 PM EDT 11/04/2024 4:08 PM EDT Natalee Matt DO LAB BLOOD ORDERABLES Final R esult Performing Organization Address [facility]/ZIP Co de Phone Number [facility] [address] [place] [phone] * (ABNORMAL) Basic Metabolic Panel (11/04/2024 2:34 PM EDT) Sodium 140 135 - 145 mmol/L [facility] Potassium 3.6 3.3 - 5.1 mmol/L [facility] Chloride 104 96 - 108 mmol/L [facility] Carbon Dioxide 27 22 - 29 mmol/L [facility] Anion Gap 13 12 - 20 [facility] Urea Nitrogen (BUN) 7(L) 9 - 16 mg/dL [facility] Creatinine, Serum 1.21 0.5 - 1.4 mg/dL [facility] Estimated Glomerular Filt Rate >60 [facility] Comment:Chronic Kidney Disea se: Estimated GFR < 60 mL/min/1.83l4Evckan Kidney Disease: Estimated GFR < 15 mL/min/1.73m2 Glucose 187(H) 60 - 115 mg/dL [facility] Calcium 9.6 8.4 - 10.2 mg/dL [facility] Blood Venous blood specimen / Unknown 11/04/2024 2:34 PM EDT 11/04/2024 4:08 PM EDT Natalee Matt DO LAB BLOOD ORDERABLES Final R esult Performing Organization Address [facility]/ZIP Co de Phone Number [facility] [address] [place] [phone] * Hm Colonoscopy (11/02/2022) Colonoscopy Normal Normal Narrative Viri Tee - 11/02/2022 Repeat Colonoscopy in 3-4 years due to polyps and fair prep or earlier if clinically indicated .See external hospital admission note on us Historical Provider HEALTH MAINTENANCE Final Result from Last 3 Months or Most Recently Relevant to Health Maintenance Insurance [facility] < [address] [place] [address] Care Teams Photogrammetric Technician Relationship Specialty Start Date End Date Natalee Matt DO [address] [place] [phone] PCP - General Family Medicine 07/13/11 [facility] 11/16/15
--- OUTSIDE RECORDS SUMMARY | 2025-01-20 12:04 | XMS_ITS | Encounter Summary ---
Author Organization [employer] Address [address] [facility] [address] [place] [address] Care Team Providers Care Frame Gate Mortiser Operator Name Role Phone Natalee Matt DO Primary Care Provider + [phone] Reason for Visit * Reason Comments Med Refill Encounter Details Date Type Department Care Team ([facility] st Contact Info) Description 03/20/2023 Refill [facility] MEDICINE [address] [place], [place] [phone] Natalee Matt DO [address] [place], [place] [phone] Chronic neck and back pain Social History [...] documented as of this encounter Care Teams Frame Gate Mortiser Operator Relationship Specialty Start Date End Date Natalee Matt DO [address] [place] [address] PCP - General Family Medicine 07/13/11 [facility] 11/16/15 documented as of this encounter
--- OUTSIDE RECORDS SUMMARY | 2025-01-20 12:05 | XMS_ITS | Encounter Summary ---
Author Organization [email or web address] Address [address] [facility] [address]t [place] [address] Care Team Providers Care Hospice Administrator Name Role Phone Natalee Matt DO Primary Care Provider + [phone] Reason for Visit * Reason Onset Date Comments Call Back Request 04/11/2023 Encounter Details Date Type Department Care Team ([facility] st Contact Info) Description 04/11/2023 Telephone [facility] MEDICINE [address] [place], [place] [phone] Natalee Matt DO [address] [place], [place] [phone] Call Back Request Social History Tobacco Use [...] 04/11/2023 12:09 PM EST Return T/C to [place] for below message. Kulwinder states pt. Was [...] - 04/11/2023 9:39 AM EST Tc from [place] with [facility] requesting to speak with nurse in regards to pt diabetes. States on Monday pt had 3 cups of coffee with sugar, shrimp, and a cup of soda. Pt sugar levels came out to be 422 but Pt is asymptomatic Please contact kulwinder at [phone] documented in this encounter Plan of Treatment Not on file documented as of this encounter Visit Diagnoses Not on filedocumented in this encounter Additional Health Concerns Assessment Noted Time PHQ-9 Depression Total Score: 0 09/10/19 9:07 AM EDT documented as of this encounter Care Teams Hospice Administrator Relationship Specialty Start Date End Date Kristyn Mattfer, DO [address] [place] [phone] PCP - General Family Medicine 07/13/11 [facility] 11/16/15 documented as of this encounter
--- OUTSIDE RECORDS SUMMARY | 2025-01-20 12:05 | XMS_ITS | Encounter Summary ---
Author Organization [employer] Address [address] [facility] 7t [place] [address] Care Team Providers Care Call Centre Supervisor Name Role Phone Natalee Matt DO Primary Care Provider + [phone] Reason for Visit * Reason Onset Date Comments fyi 10/10/2024 Encounter Details Date Type Department Care Team ([facility] st Contact Info) Description 10/10/[address] [facility] MEDICINE 230 [place], [place] [phone] Natalee Matt DO 230 [place], [place] [phone] fyi Social History Tobacco Use Types Packs/Day [...] 8:17 AM EDT Tc from Dariela at [facility] calling to notify that pt has refuced trulicity the last 2 weeks and states he will think about it for next week. Contact [facility] [phone] documented in this encounter Plan of Treatment Not on file documented as of this encounter Visit Diagnoses Not on filedocumented in this encounter Additional Health Concerns Assessment Noted Time PHQ-9 Depression Total Score: 5 11/20/19 24 10:07 AM EDT documented as of this encounter Care Teams Call Centre Supervisor Relationship Specialty Start Date End Date Natalee Matt DO [address] [place] [address] PCP - General Family Medicine 07/13/11 [facility] 11/16/15 documented as of this encounter
--- OUTSIDE RECORDS SUMMARY | 2025-01-20 12:05 | XMS_ITS | Encounter Summary ---
Author Organization [employer] Address [address] [facility] 7[address] [place] [address] Care Team Providers Care Tipple Boss Name Role Phone Natalee Matt DO Primary Care Provider + [phone] Reason for Visit * Reason Onset Date Comments Med Refill 03/28/2022 Encounter Details Date Type Department Care Team ([facility] st Contact Info) Description 03/28/2022 Telephone [facility] MEDICINE 230 [place] [address] Natalee Matt DO 230 [place] [address] Med Refill Social History Tobacco Use Types [...] - 03/28/2022 10:11 AM EST Tc from [place] Nurse for pt requesting med refill on hydrOXYzine HCl (Atarax) 25 MG tablet Please sent to [facility]/pharmacy #[id number] - [place] - [address] [place] [address] documented in this encounter Plan of Treatment Not on file documented as of this encounter Visit Diagnoses Not on filedocumented in this encounter Care Teams Tipple Boss Relationship Specialty Start Date End Date Natalee Matt DO 230 [place] [address] PCP - General Family Medicine 07/13/11 [facility] 11/16/15 documented as of this encounter
--- OUTSIDE RECORDS SUMMARY | 2025-01-20 12:05 | XMS_ITS | Encounter Summary ---
Author Organization [employer] Address 75 [facility] 7t [place] [address] Care Team Providers Care Battery Container Tester Aluminum Name Role Phone Natalee Matt DO Primary Care Provider + [phone] Reason for Visit * Reason Comments Med Change Request Encounter Details Date Type Department Care Team ([facility] Contact Info) Description 12/17/2024 Refill [facility] MEDICINE 230 [place], [place] [phone] Natalee Matt DO 230 [place], [place] [phone] Social History Tobacco Use Types Packs/Day Years [...] documented as of this encounter Care Teams Battery Container Tester Aluminum Relationship Specialty Start Date End Date Natalee Matt DO [address] [place] [address] PCP - General Family Medicine 07/13/11 [facility] 11/16/15 documented as of this encounter
--- OUTSIDE RECORDS SUMMARY | 2025-01-20 12:05 | XMS_ITS | Encounter Summary ---
Author Organization [employer] Address [address] [facility] 7t [place] [address] Care Team Providers Care Coverage Specialist Rn Name Role Phone Natalee Matt DO Primary Care Provider + [phone] Reason for Visit * Reason Onset Date Comments FYI 06/14/2023 Encounter Details Date Type Department Care Team ([facility] st Contact Info) Description 06/14/2023 Telephone [facility] MEDICINE 230 [place], [place] [phone] Natalee Matt DO 230 [place], [place] [phone] FYI Social History Tobacco Use Types Packs/Day [...] EDT Tc from [facility] calling to report elevated BP before medication administration 132/99 with no cardiac symptoms documented in this encounter Plan of Treatment Not on file documented as of this encounter Visit Diagnoses Not on filedocumented in this encounter Additional Health Concerns Assessment Noted Time PHQ-9 Depression Total Score: 0 09/10/19 9:07 AM EDT documented as of this encounter Care Teams Coverage Specialist Rn Relationship Specialty Start Date End Date Natalee Matt DO 230 [place] [address] PCP - General Family Medicine 07/13/11 [facility] 11/16/15 documented as of this encounter
--- OUTSIDE RECORDS SUMMARY | 2025-01-20 12:05 | XMS_ITS | Encounter Summary ---
Author Organization [employer] Address 75 [facility] 7t [place] [address] Care Team Providers Care Construction Quality Control Manager Name Role Phone Natalee Matt DO Primary Care Provider + [phone] Reason for Visit * Reason Onset Date Comments Med Refill 06/06/2023 Encounter Details Date Type Department Care Team ([facility] st Contact Info) Description 06/06/2023 Telephone [facility] MEDICINE 230 [place], [place] [phone] Natalee Matt DO 230 [place], [place] [phone] Med Refill Social History Tobacco Use Types [...] 10:27 AM EDT Medication was sent to [facility] #[id number] on 06/01/23. * Telephone Encounter - Catalina Vences - 06/06/2023 10:11 AM EDT TC from pt requesting medication refill. Medications needing refill : cholecalciferol (Vitamin D-3) 50 MCG (1999 UT) tablet To be sent to: [facility]/pharmacy #[id number] - [address] documented in this encounter Plan of Treatment Not on file documented as of this encounter Visit Diagnoses Not on filedocumented in this encounter Additional Health Concerns Assessment Noted Time PHQ-9 Depression Total Score: 0 09/10/19 23 9:07 AM EDT documented as of this encounter Care Teams Construction Quality Control Manager Relationship Specialty Start Date End Date Natalee Matt DO 230 [place] [address] PCP - General Family Medicine 07/13/11 [facility] 11/16/15 documented as of this encounter
--- OUTSIDE RECORDS SUMMARY | 2025-01-20 12:05 | XMS_ITS | Encounter Summary ---
Author Organization [employer] Address [address] [facility] 7t [place] [address] Care Team Providers Care Hosiery Looper Name Role Phone Natalee Matt DO Primary Care Provider + [phone] Reason for Visit * Reason Comments Med Refill Encounter Details Date Type Department Care Team ([facility] Contact Info) Description 01/19/2025 Refill [facility] MEDICINE 230 [place], [place] [phone] Natalee Matt DO 230 [place], [place] [phone] Social History Tobacco Use Types Packs/Day Years [...] documented as of this encounter Care Teams Hosiery Looper Relationship Specialty Start Date End Date Natalee Matt DO [address] [place] [address] PCP - General Family Medicine 07/13/11 [facility] 11/16/15 documented as of this encounter
--- OUTSIDE RECORDS SUMMARY | 2025-01-20 12:05 | XMS_ITS | Encounter Summary ---
Author Organization [employer] Address 75 [facility] 7t [place] [address] Care Team Providers Care Travelift Operator Name Role Phone Natalee Matt DO Primary Care Provider + [phone] Encounter Details Date Type Department Care Team (Latest Contact Info) Description 06/26/2020 Abstract [facility] CONVERSIONS Dental, Provider, DDS Social History Tobacco [...] on filedocumented in this encounter Care Teams Travelift Operator Relationship Specialty Start Date End Date Natalee Matt DO [address] [place] [address] PCP - General Family Medicine 07/13/11 [facility] 11/16/15 documented as of this encounter
--- OUTSIDE RECORDS SUMMARY | 2025-01-20 12:05 | XMS_ITS | Encounter Summary ---
Author Organization [employer] Address 75 [facility] 7t [place] [address] Care Team Providers Care Payroll Consultant Name Role Phone Natalee Matt DO Primary Care Provider + [phone] Reason for Visit * Reason Comments Med Change Request Encounter Details Date Type Department Care Team ([facility] Contact Info) Description 09/11/2024 Refill [facility] MEDICINE 230 [place], [place] [phone] Natalee Matt DO 230 [place], [place] [phone] Social History Tobacco Use Types Packs/Day Years [...] documented as of this encounter Care Teams Payroll Consultant Relationship Specialty Start Date End Date Natalee Matt DO [address] [place] [address] PCP - General Family Medicine 07/13/11 [facility] 11/16/15 documented as of this encounter
--- OUTSIDE RECORDS SUMMARY | 2025-01-20 12:05 | XMS_ITS | Encounter Summary ---
Author Organization [employer] Address 75 [facility] 7t [place] [address] Care Team Providers Care Fire Fighter Airport Name Role Phone Natalee Matt DO Primary Care Provider + [phone] Reason for Visit * Reason Comments Med Refill Encounter Details Date Type Department Care Team ([facility] st Contact Info) Description 05/27/2022 Refill [facility] MEDICINE 230 [place] [address] [facility] 230 [place] [address] Social History Tobacco Use Types Packs/Day Years [...] documented as of this encounter Care Teams Fire Fighter Airport Relationship Specialty Start Date End Date Natalee Matt DO [address] [place] [address] PCP - General Family Medicine 07/13/11 [facility] 11/16/15 documented as of this encounter
--- OUTSIDE RECORDS SUMMARY | 2025-01-20 12:05 | XMS_ITS | Encounter Summary ---
Author Organization [employer] Address 75 [facility] 7t [place] [address] Care Team Providers Care Machine Stripper Cutter Name Role Phone Natalee Matt DO Primary Care Provider + [phone] Reason for Visit * Reason Onset Date Comments ER Follow-up 04/11/2023 Encounter Details Date Type Department Care Team ([facility] st Contact Info) Description 04/11/2023 Telephone [facility] MEDICINE 230 [place], [place] [phone] Natalee Matt DO 230 [place], [place] [phone] ER Follow-up Social History Tobacco Use Types [...] AM EST T/C x 1 am to [phone] through [employer] [place] - [id number] for status check for current ED visit, No answer, Not able to LVM, phone number was belongs to another person. T/C to [phone] through [employer] id - [id number], no answer. Phone number is not active. * Telephone Encounter - Anu Lyons - 04/11/2023 9:37 AM EST Patient calling to report ED visit on : Date: 04/09 Hospital: [facility] Seen for: periorbital cellulitis Patient advised will forward to team nurse for follow up Please contact pt at [phone] (Israeli) documented in this encounter Plan of Treatment Not on file documented as of this encounter Visit Diagnoses Not on filedocumented in this encounter Additional Health Concerns Assessment Noted Time PHQ-9 Depression Total Score: 0 09/10/19 9:07 AM EDT documented as of this encounter Care Teams Machine Stripper Cutter Relationship Specialty Start Date End Date Natalee Matt DO [address] [place] [address] PCP - General Family Medicine 07/13/11 [facility] 11/16/15 documented as of this encounter
--- OUTSIDE RECORDS SUMMARY | 2025-01-20 12:05 | XMS_ITS | Encounter Summary ---
Author Organization [employer] Address [address] [facility] 7t [place] [address] Care Team Providers Care Wrapping Clerk Name Role Phone Natalee Matt DO Primary Care Provider + [phone] Reason for Visit * Reason Onset Date Comments Med Refill 09/30/2024 Encounter Details Date Type Department Care Team ([facility] st Contact Info) Description 09/30/2024 Telephone [facility] MEDICINE 230 [place], [place] [phone] Natalee Matt DO 230 [place], [place] [phone] Med Refill Social History Tobacco Use Types [...] 1:34 PM EDT Medication was sent to [facility] #[id number] on 08/29/24 with 5 refills. * Telephone Encounter - Luz Maria Bullock - 09/30/2024 1:31 PM EDT TC from pt requesting medication refill. Medications needing refill : fluticasone furoate (Arnuity Ellipta) 100 MCG/ACT inhaler To be sent to: [facility]/pharmacy #[id number] - [address] documented in this encounter Plan of Treatment Not on file documented as of this encounter Visit Diagnoses Not on filedocumented in this encounter Additional Health Concerns Assessment Noted Time PHQ-9 Depression Total Score: 5 11/20/19 24 10:07 AM EDT documented as of this encounter Care Teams Wrapping Clerk Relationship Specialty Start Date End Date Natalee Matt DO 230 [place] [address] PCP - General Family Medicine 07/13/11 [facility] 11/16/15 documented as of this encounter
--- OUTSIDE RECORDS SUMMARY | 2025-01-20 12:05 | XMS_ITS | Encounter Summary ---
Author Organization [employer] Address 75 [facility] 7t [place] [address] Care Team Providers Care Switchboard Wirer Name Role Phone Natalee Matt DO Primary Care Provider + [phone] Encounter Details Date Type Department Care Team (Late st Contact Info) Description 06/24/2022 Orders Only [facility] 230 [place] [address] Nino Ta MD 230 [place] [address] Social History Tobacco Use Types Packs/Day Years [...] documented as of this encounter Care Teams Switchboard Wirer Relationship Specialty Start Date End Date Natalee Matt DO 230 [place] [address] PCP - General Family Medicine 07/13/11 [facility] 11/16/15 documented as of this encounter
--- OUTSIDE RECORDS SUMMARY | 2025-01-20 12:05 | XMS_ITS | Encounter Summary ---
Author Organization [employer] Address 75 [facility] 7t [place] [address] Care Team Providers Care Open Winder Name Role Phone Natalee Matt DO Primary Care Provider + [phone] Reason for Visit * Reason Comments Med Change Request Encounter Details Date Type Department Care Team ([facility] Contact Info) Description 10/23/2024 Refill [facility] MEDICINE 230 [place], [place] [phone] Ely Peterson MD 230 [place], [place] [phone] Social History Tobacco Use Types Packs/Day Years [...] documented as of this encounter Care Teams Open Winder Relationship Specialty Start Date End Date Natalee Matt DO [address] [place] [address] PCP - General Family Medicine 07/13/11 [facility] 11/16/15 documented as of this encounter
--- OUTSIDE RECORDS SUMMARY | 2025-01-20 12:05 | XMS_ITS | Encounter Summary ---
Author Organization [employer] Address 75 [facility] 7[address] [place] [address] Care Team Providers Care Machine Made Shoe Unit Worker Name Role Phone Natalee Matt DO Primary Care Provider [phone] Encounter Details Date Type Department Care Team (Late st Contact Info) Description 03/11/2022 Orders Only [facility] MED & PEDS [address] [place] [address] Natalee Deutsch LPN Social History Tobacco Use [...] on filedocumented in this encounter Care Teams Machine Made Shoe Unit Worker Relationship Specialty Start Date End Date Natalee Matt DO [address] [place] [address] PCP - General Family Medicine 07/13/11 [facility] 11/16/15 documented as of this encounter
--- OUTSIDE RECORDS SUMMARY | 2025-01-20 12:05 | XMS_ITS | Encounter Summary ---
Author Organization [employer] Address [address] [facility] 7t [place] [address] Care Team Providers Care Coating Line Worker Name Role Phone VernellNatalee Primary Care Provider + [phone] Encounter Details Date Type Department Care Team ([facility] st Contact Info) Description 05/25/2022 Orders Only [facility] CHC MED & PEDS 505 [place], [place] [phone] Natalee Deutsch LPN Social History Tobacco Use [...] PM EDT) 06/16/2022 3:56 PM EDT Narrative [facility] IM[facility] - 06/16/2022 4:58 PM EDT [address] [address] Ultrasound Report Signed Patient: Dutch Royal MR#: [id number] : 1960 Acct:[id number] Age/Sex: 62 / M ADM Date: 06/16/22 Loc: HO.US Attending Dr: Nino Lyle MD Ordering Physician: NINO LYLE MD Date of Service: 06/16/22 Procedure(s): US venous duplex LE RT Accession Number(s): [id number] cc: NINO LYLE MD EXAMINATION: US VENOUS [...] by Chas Tobin MD in OV> 06/16/22 7972 DD/ 1556 TD/TT: Urologist: EDITH Procedure Note Donotuseinterpreter, Image - 08/18/[address] [address] Ultrasound Report Signed Patient: Dutch Royal LMR#: [id number] : 1960Acct:[id number] Age/Sex: 62 / MADM Date: 06/16/22 Loc: HO.US Attending Dr: Nino Lyle MD Ordering Physician: NINO LYLE MD Date of Service: 06/16/22 Procedure(s): US venous duplex LE RT Accession Number(s): [id number] cc: NINO LYLE MD EXAMINATION: US VENOUS [...] in OV> 06/16/22 1655 DD/ 1556 TD/TT: Urologist: EDITH us [facility] External Provider CV VASC ULAR PROCEDURES Final Result [facility] [address] [place] [address] documented in this encounter Visit Diagnoses Not on filedocumented in this encounter Additional Health Concerns Assessment Noted Time PHQ-9 Depression Total Score: 20 023 11:26 AM EST documented as of this encounter Care Teams Coating Line Worker Relationship Specialty Start Date End Date Natalee Matt DO [address] [place] [address] PCP - General Family Medicine 07/13/11 [facility] 11/16/15 documented as of this encounter
--- OUTSIDE RECORDS SUMMARY | 2025-01-20 12:05 | XMS_ITS | Encounter Summary ---
Author Organization [employer] Address [address] [facility] 7t [place] [address] Care Team Providers Care Internal Controls Analyst Name Role Phone Natalee Matt DO Primary Care Provider + [phone] Reason for Visit * Reason Comments Med Refill Encounter Details Date Type Department Care Team ([facility] st Contact Info) Description 09/16/2024 Refill [facility] MEDICINE 230 [place], [place] [phone] Natalee Matt DO 230 [place], [place] [phone] Chronic neck and back pain Social History [...] documented as of this encounter Care Teams Internal Controls Analyst Relationship Specialty Start Date End Date Natalee Matt DO [address] [place] [address] PCP - General Family Medicine 07/13/11 [facility] 11/16/15 documented as of this encounter
--- OUTSIDE RECORDS SUMMARY | 2025-01-20 12:05 | XMS_ITS | Encounter Summary ---
Author Organization [employer] Address [address] [facility] 7t [place] [address] Care Team Providers Care Corking Machine Operator Name Role Phone Natalee Matt DO Primary Care Provider + [phone] Encounter Details Date Type Department Care Team ([facility] st Contact Info) Description 02/28/2022 Orders Only [facility] MEDICINE 230 [place] [address] Amanda Denton LPN Social History Tobacco Use [...] on filedocumented in this encounter Care Teams Corking Machine Operator Relationship Specialty Start Date End Date Natalee Matt DO 230 [place] [address] PCP - General Family Medicine 07/13/11 [facility] 11/16/15 documented as of this encounter
--- OUTSIDE RECORDS SUMMARY | 2025-01-20 12:05 | XMS_ITS | Encounter Summary ---
Author Organization [employer] Address 75 [facility] 7t [place] [address] Care Team Providers Care Paper Rewinder Name Role Phone Natalee Matt DO Primary Care Provider + [phone] Encounter Details Date Type Department Care Team ([facility] st Contact Info) Description 07/13/2022 Abstract [facility] MEDICINE 230 [place] [address] Natalee Matt DO 230 [place], [place] [phone] Social History Tobacco Use Types Packs/Day Years [...] documented as of this encounter Care Teams Paper Rewinder Relationship Specialty Start Date End Date Natalee Matt DO 230 [place] [address] PCP - General Family Medicine 07/13/11 [facility] 11/16/15 documented as of this encounter
--- OUTSIDE RECORDS SUMMARY | 2025-01-20 12:05 | XMS_ITS | Encounter Summary ---
Author Organization [employer] Address 75 [facility] 7t [place] [address] Care Team Providers Care Clinical Laboratory Aide Name Role Phone Natalee Matt DO Primary Care Provider + [phone] Reason for Visit * Reason Comments Med Change Request Encounter Details Date Type Department Care Team ([facility] Contact Info) Description 03/28/2024 Refill [facility] MEDICINE 230 [place], [place] [phone] Natalee Matt DO 230 [place], [place] [phone] Social History Tobacco Use Types Packs/Day Years [...] as of this encounter Care Teams Clinical Laboratory Aide Relationship Specialty Start Date End Date Natalee Matt DO [address] [place] [address] PCP - General Family Medicine 07/13/11 [facility] 11/16/15 documented as of this encounter
--- OUTSIDE RECORDS SUMMARY | 2025-01-20 12:05 | XMS_ITS | Encounter Summary ---
Author Organization [employer] Address 75 [facility] 7t [place] [address] Care Team Providers Care Motor Vehicle Parts Interpreter Name Role Phone Natalee Matt DO Primary Care Provider + [phone] Reason for Visit * Reason Onset Date Comments Nurse Triage 06/07/2023 Encounter Details Date Type Department Care Team ([facility] st Contact Info) Description 06/07/2023 Telephone [facility] MEDICINE 230 [place], [place] [phone] Natalee Matt DO 230 [place], [place] [phone] Nurse Triage Social History Tobacco Use Types [...] documented as of this encounter Care Teams Motor Vehicle Parts Interpreter Relationship Specialty Start Date End Date Natalee Matt DO [address] [place] [address] PCP - General Family Medicine 07/13/11 [facility] 11/16/15 documented as of this encounter
--- OUTSIDE RECORDS SUMMARY | 2025-01-20 12:05 | XMS_ITS | Encounter Summary ---
Author Organization [employer] Address [address] [facility] 7t [place] [address] Care Team Providers Care Pen Rider Name Role Phone Natalee Matt DO Primary Care Provider + [phone] Reason for Visit * Reason Comments Med Change Request Encounter Details Date Type Department Care Team ([facility] st Contact Info) Description 04/21/[address] [facility] MEDICINE 230 [place], [place] [phone] Natalee Matt DO 230 [place], [place] [phone] Social History Tobacco Use Types Packs/Day Years [...] the past 12 months, has t he [employer], gas, oil or water company threatened to [...] documented as of this encounter Care Teams Pen Rider Relationship Specialty Start Date End Date Natalee Matt DO [address] [place] [address] PCP - General Family Medicine 07/13/11 [facility] 11/16/15 documented as of this encounter
== END 2025-01-20 10:42 | disposition home or self-care (01) ==
LOC: HO.RHES 09:58
PROVIDERS: PCP Family Medicine; Visit Provider Student in an Organized Health Care Education/Training Program
DX: M79.18 Myalgia, other site (principal); M25.551 Pain in right hip; M19.90 Unspecified osteoarthritis, unspecified site
CPT/HCPCS: 99204

== ENCOUNTER → 2025-01-20 09:57 | Outpatient (BNVA) | payer OTHER, SELFPAY | PROVIDERS: PCP Family Medicine; Visit Provider Student in an Organized Health Care Education/Training Program | DX: M25.551 Pain in right hip (principal); M79.18 Myalgia, other site; F17.210 Nicotine dependence, cigarettes, uncomplicated; M19.90 Unspecified osteoarthritis, unspecified site | CPT/HCPCS: 99202 ==